=== PATIENT | male | born 1960 | race Caucasian/White ===

== ENCOUNTER → 2016-05-16 | Outpatient (REF) | payer OTHER ==
[~2016-05-16] MED LIST: ACET50TA PO; AMAR1TAB PO; AMLO5TAB2 PO; AUGM875T27 PO; BISAC5TA PO; CEFT2INJ IV; CHLO50TA2 PO; CINN500C9 PO; DIOV320T PO; HEPA100SYR IV; INSULANT SQ; LEVO500T PO; METF1000 PO; SIMV40TA2 PO; SLF IV; SULF400T PO
== END ==
LOC: M LAB REF 10:47
PROVIDERS: ATTEND Surgery
DX: E11.621 Type 2 diabetes mellitus with foot ulcer (principal)

== ENCOUNTER 2016-05-24 14:55 | Inpatient (IN) | payer OTHER ==
[~2016-05-24] VITALS: Ht 177.8 cm; Wt 102.9 kg
[~2016-05-24 14:55] MED LIST changes: -ASPI1TAB PO; -ATOR40TA PO; -CHLO25TA PO; -CINN500T PO; -CLEO300C2 PO; -GLIM1TAB; -GLIM1TAB PO; -TRAD5TAB; -TRAD5TAB PO; -VALS1TAB47; -VALS1TAB47 PO; -VITATAB11 PO
[2016-05-24] MEDS ORDERED: VALS1TAB47 (15:10)
[2016-05-24] MEDS ORDERED: CHLO25TA PO (15:10)
[2016-05-24] MEDS ORDERED: GLIM1TAB (15:10)
[2016-05-24] MEDS ORDERED: ATOR40TA PO (15:10)
[2016-05-24] MEDS ORDERED: CINN500T PO (15:10)
[2016-05-24] MEDS ORDERED: TRAD5TAB (15:10)
[2016-05-24] MEDS ORDERED: ASPI1TAB PO ×2 (15:10→17:53)
[2016-05-24 16:09] LABS: MEAN CORPUSCULAR HEMOGLOBIN 30.1 pg (27.0-33.0); MEAN CORPUSCULAR VOLUME 91.2 fl (80.0-96.0); RED CELL DISTRIBUTION WIDTH 13.2 % (11.5-14.5); WHITE BLOOD COUNT 8.9 K/mm3 (4.0-10.0)
[2016-05-24] MEDS: NS 1,000 ML IV SCH ×3 (16:20→22:21)
[2016-05-24 16:35] LABS: ALBUMIN 3.2 GM/DL (3.2-5.2); ALBUMIN/GLOBULIN RATIO 0.67 (1.00-1.93); ALKALINE PHOSPHATASE 97 U/L (45-117); ALT/SGPT 32 U/L (12-78); ANION GAP 6 MEQ/L (8-16); AST/SGOT 19 U/L (15-37); BILIRUBIN,DIRECT 0.2 MG/DL (0.0-0.2); BILIRUBIN,TOTAL 0.4 MG/DL (0.2-1.0); BLOOD UREA NITROGEN 49 MG/DL (7-18); CARBON DIOXIDE LEVEL 24 MEQ/L (21-32); CHLORIDE LEVEL 107 MEQ/L (98-107); CREATININE FOR GFR 3.07 MG/DL (0.70-1.30); GLOMERULAR FILTRATION RATE 22.6 (>56); GLUCOSE, FASTING 145 MG/DL (70-105); SODIUM LEVEL 137 MEQ/L (136-145)
[2016-05-24 16:37] LABS: POTASSIUM SERUM 5.8 MEQ/L (3.5-5.1)
[2016-05-24 16:38] LABS: BASOPHILS 1 % (0-4); EOSINOPHILS 9 % (0-5)
--- NOTE | 2016-05-24 16:47 | REP ---
PORTABLE CHEST: AP portable view of the chest is performed. COMPARISON: 05/02/2012 Heart is upper limits of normal in size. There is mild elevation of the right hemidiaphragm unchanged. There is mild linear fibro atelectatic change in each lung base with no evidence of acute infiltrate or pulmonary edema. The mediastinal silhouette is unchanged. IMPRESSION: No acute infiltrate. Signed by Moses Leiva MD 05/25/2016 08:34 A
[2016-05-24] MEDS ORDERED: CALCIUM GLUCONATE 1,000 MG in D5W MINI-BAG PLUS 100 ML IV ONE ×4 (17:15)
[2016-05-24] MEDS ORDERED: SOD POLYSTYRENE SULFONATE SUSP 15 GM/60 ML UD PO ONE ×2 (17:15)
[2016-05-24] MEDS ORDERED: SODIUM CHLORIDE 0.9% 1000 ML IV SCH (17:15)
[2016-05-24] MEDS ORDERED: DEXTROSE 50% 50 ML SYRINGE IV PRN (17:30)
[2016-05-24] MEDS ORDERED: GLUCOSE 4 GM CHEW TABLET PO PRN (17:30)
[2016-05-24] MEDS ORDERED: GLUCAGON FOR INJ 1 MG VIAL (J1610) SC PRN (17:30)
--- NOTE | 2016-05-24 17:45 | REP ---
Left foot series: Four views. History: Status post amputation. Comparison: Left foot radiographs are from May 28, 2012. The fifth toe has been amputated in the interval since that prior study through the distal end of the fifth metatarsal. Findings: There is new bony erosion in the proximal phalanx of the fourth toe consistent with osteomyelitis. There is soft tissue swelling of the fourth toe and there is subluxation of the PIP joint of the fourth toe. No soft tissue gas is seen. There is Achilles and plantar calcaneal spurring. Vascular calcification is again noted. Impression: Acute appearing erosive change and subluxation and swelling in the fourth toe proximal phalanx consistent with osteomyelitis. Status post amputation of the fifth digit. Signed by Shaun Carr MD 05/24/2016 06:07 P
[2016-05-24] MEDS ORDERED: TRAD5TAB PO (17:53)
[2016-05-24] MEDS ORDERED: VITATAB11 PO (17:53)
[2016-05-24] MEDS ORDERED: VALS1TAB47 PO (17:53)
[2016-05-24] MEDS ORDERED: GLIM1TAB PO (17:53)
--- NOTE | 2016-05-24 18:31 | HPEPDOC ---
General Date of Admission May 24, 2016 at 17:15 Primary Care Physician: Abelardo Carrington MD Other Providers Dr. Andre Chavez M.D.-wound care Dr. Heather Brewer M.D.-infectious disease Attending Physician: JELANI KANG MD Chief Complaint The patient is a 55-year-old male admitted with a reason for visit of Acute Hyperkalemia. Source: Patient, Family Exam Limitations: No limitations History of Present Illness Mr. Phillips presented to the emergency department because he was called by his primary care physician Dr. Carrington and informed of his abnormal lab results indicating that he had acute on chronic kidney injury and hyperkalemia secondary to the use of Bactrim. He has taken Bactrim multiple times in the past without any issue, however he was recently started on Bactrim once again due to osteomyelitis of his left fourth toe. Otherwise, he does not have any additional symptoms today, he does not have any pain in his foot, nor has he had any extending cellulitis, and he specifically denies any genitourinary symptoms such as changes in frequency or color. Specifically also denies any chest or cardiac symptoms such as palpitations, skipped beats, or any other chest discomfort. Home Medications Scheduled Aspirin (Aspirin 81) 81 Mg Tab 81 MG PO QHS (Reported) Atorvastatin Calcium (Atorvastatin Calcium) 40 Mg Tab 40 MG PO QHS (Reported) B1/B2/B3/B5/B6 (Vitamin B Complex) 1 Tab Tab 1 TAB PO DAILY (Reported) Chlorthalidone (Chlorthalidone) 25 Mg Tab 25 MG PO DAILY (Reported) Cinnamon Bark (Cinnamon) 500 Mg Tab 500 MG PO BID (Reported) Glimepiride (Glimepiride) 1 Mg Tab 1 MG PO BID (Reported) Linagliptin Base (Tradjenta) 5 Mg Tab 5 MG PO DAILY (Reported) Valsartan (Valsartan) 160 Mg Tab 160 MG PO QHS (Reported) Allergies Coded Allergies: No Known Drug Allergy (Verified Allergy, Unknown, 05/28/12) Past Medical History Medical History Diabetes mellitus type 2 Chronic kidney disease stage III with a baseline of approximately 2-2.3 Hypercholesterolemia Hypertension History of retinal hemorrhages Fatty liver Diabetic neuropathy Osteomyelitis of left fifth toe with subsequent amputation in 2012 Osteomyelitis of the left fourth toe, current Surgical History Multiple eye surgeries and injections for his retinal hemorrhages Amputation of left fifth toe and metatarsal 2013 Family History Father has Alzheimer's dementia, and he has multiple aunts and uncles with diabetes Social History * Smoker: Denies Alcohol: Denies Drugs: denies Recent Travel/Sick Contacts: Denies: Recent sick contacts, Recent travel Psychosocial History: No pertinent psych hx Review of Symptoms Constitutional: Denies: Chills, Fever, Night Sweats Eyes: Denies: Pain, Vision change ENT: Denies: Dysphagia, Ear Pain, Head Aches Skin: Denies: Breakdown, Lesions, Rash Pulmonary: Denies: Cough, Dyspnea Cardiovascular: Denies: Chest Pain, Lt Headedness, Orthopnea, Palpitations, Paroxysmal Noc. Dyspnea Gastrointestinal: Denies: Abdominal Pain, Diarrhea, Nausea, Vomiting Genitourinary: Denies: Dysuria, Frequency, Incontinence, Retention Hematologic: Denies: Bleeding Excessively, Bruising Musculoskeletal: Denies: Back Pain, Joint Pain, Muscle Pain, Neck Pain, Spasms Neurological: Denies: Change in speech, Confusion, Numbness, Weakness Psych: Reports: Mood Normal, Denies: Depression, Memory Issues Physical Examination General Exam: Positive: Alert, No Acute Distress Eye Exam: Positive: Conjunctiva & lids normal, EOMI, PERRLA, Negative: Sclera icteric ENT Exam: Positive: Atraumatic, Mucous membr. moist/pink, Pharynx Normal Neck Exam: Positive: Supple, Negative: JVD, thyromegaly Chest Exam: Positive: Clear to auscultation, Normal air movement Heart Exam: Positive: Normal S1, Normal S2, Rate Normal, Regular Rhythm, Negative: Murmurs, Rubs Telemetry: Positive: No significant arrhythmia, Other Telemetry: (specifically , no evidence of peaked T waves), Sinus Abdomen Exam: Positive: Normal bowel sounds, Soft, Negative: Hepatospenomegaly, Tenderness Extremity Exam: Positive: Normal pulses, Other (previous left fifth toe amputation, left fourth toe wound recently debrided), Negative: Clubbing, Cyanosis, Edema Skin Exam: Positive: Nl turgor and temperature, Negative: Breakdown, Lesion Neuro Exam: Positive: Cranial Nerves 3-12 NL Psych Exam: Positive: Mental status NL, Mood NL, Oriented x 3 Vital Signs Temperature 98.9, pulse 78, respiratory rate 16, blood pressure 117/72, pulse oximetry 96% on room air Laboratory Data Labs 24H Laboratory Tests 2 05/24/16 15:51: Basophils (Manual) 1, Eosinophils (Manual) 9H, Lymphocytes (Manual) 21, Monocytes (Manual) 6, Neutrophils 63, Platelet Estimate NORMAL, Red Blood Cell Morphology NORMAL 05/24/16 15:52: Aspartate Amino Transf (AST/SGOT) 19, Alanine Aminotransferase (ALT/SGPT) 32, Alkaline Phosphatase 97, Total Bilirubin 0.4, Direct Bilirubin 0.2, Albumin 3.2 , Albumin/Globulin Ratio 0.67L, Anion Gap 6L, Calcium Level 9.0, Creatine Kinase MB 2.7, Creatine Kinase MB Relative Index 1.21, Glomerular Filtration Rate 22.6L, Total Creatine Kinase 222, Total Protein 8.0, Troponin I < 0.02 CBC/BMP Laboratory Tests 05/24/16 15:51 05/24/16 15:52 Problems (1) Acute hyperkalemia Status: Acute (2) Renal failure (ARF), acute on chronic Status: Acute (3) Osteomyelitis of toe of left foot Status: Acute (4) Diabetes mellitus type 2 in obese Status: Chronic (5) Hypercholesterolemia Status: Chronic (6) Hypertension Status: Chronic (7) History of retinal hemorrhage Status: Chronic (8) Fatty liver Status: Chronic (9) CKD (chronic kidney disease), stage III Status: Chronic Plan / VTE VTE Prophylaxis Ordered?: Yes (Heparin) Plan Plan Will admit the patient to PCU for an telemetric monitoring given his hyperkalemia, and he will be under the care of Dr. Carrington starting in the morning. He is already been administered calcium gluconate to stabilize the cardiac membrane as well as Kayexalate and to encourage excretion of potassium. Bactrim has obviously been discontinued, we will put him on clindamycin for now, as his wound cultures show that he is resistant to penicillins. Consideration may be given to narrow him down to the use of oxacillin (as this is sensitive), however for long-term use he would need the placement of a PICC line. Otherwise, we'll start him with hydration using normal saline, control his diabetes using sliding scale insulin, and continue his home medications of aspirin, vitamins, and Lipitor. As for his antihypertensives, both chlorthalidone and valsartan are nephrotoxic, therefore these will be discontinued, and he has a sensitivity to beta blockers listed in [employer] , therefore we will give him some Norvasc to help control his blood pressure while inpatient. YEVGENIY ROBERSON DO May 24, 2016 18:31 JELANI KANG MD May 24, 2016 18:46
--- NOTE | 2016-05-24 18:38 | REP ---
Urinary tract sonography: History: Acute renal failure. Findings: Scanning through the level of the urinary bladder shows smooth bladder gudino. Emptying ureteral jets are observed from the right ureter on color Doppler interrogation of the bladder lumen. Renal cortical echogenicity pattern is slightly increased. Renal contours are intact. There is some increased renal sinus fat echogenicity seen bilaterally. No hydronephrosis is seen. No cyst or mass is observed on either side. The left renal dimensions are 11.0 x 6.4 x 4.4 cm. Right renal dimensions are 11.2 x 6.1 x 5.7 centimeters. Impression: Increased renal cortical echogenicity pattern compatible with chronic medical renal disease. No hydronephrosis, cyst, or mass is observed. Signed by Shaun Carr MD 05/24/2016 07:14 P
[2016-05-24] MEDS: HumaLOG INSULIN (NovoLOG) PER UNIT SC SCH ×2 (18:40→21:00)
[2016-05-24] MEDS: CLINDAMYCIN 600 MG in APPROPRIATE DILUENT 1 EA IV SCH (18:45)
[2016-05-24 20:40] VITALS: BP 146/74
[2016-05-24] MEDS ORDERED: HEPARIN SOD (PORCINE) 5000 UNITS/ML VIAL SC SCH (21:00)
[2016-05-24] MEDS: HEPARIN SOD (PORCINE) 5000 UNITS/ML VIAL SQ SCH (22:17)
[2016-05-24] MEDS: ATORVASTATIN 20 MG TAB PO SCH (22:17)
[2016-05-24] MEDS: ASPIRIN 81 MG ENTERIC TAB PO SCH (22:17)
[2016-05-25] VITALS (8 sets, daily range): BP systolic 124–146; BP diastolic 54–74
[2016-05-25 00:44] LABS: CALCIUM LEVEL 8.9 MG/DL (8.5-10.1); CREATININE FOR GFR 2.99 MG/DL (0.70-1.30); GLOMERULAR FILTRATION RATE 23.3 (>56)
[2016-05-25 00:47] LABS: POTASSIUM SERUM 5.6 MEQ/L (3.5-5.1)
[2016-05-25] MEDS: CLINDAMYCIN 600 MG in APPROPRIATE DILUENT 1 EA IV SCH ×3 (02:57→17:11)
[2016-05-25] MEDS: NS 1,000 ML IV SCH ×4 (02:58→22:09)
[2016-05-25] MEDS: HEPARIN SOD (PORCINE) 5000 UNITS/ML VIAL SQ SCH ×3 (05:39→22:09)
[2016-05-25 06:07] LABS: ALBUMIN 2.8 GM/DL (3.2-5.2); CALCIUM LEVEL 8.6 MG/DL (8.5-10.1); CREATININE FOR GFR 2.71 MG/DL (0.70-1.30); GLOMERULAR FILTRATION RATE 26.1 (>56); PHOSPHORUS LEVEL 3.8 MG/DL (2.5-4.9)
[2016-05-25 06:13] LABS: POTASSIUM SERUM 5.5 MEQ/L (3.5-5.1)
[2016-05-25 06:27] LABS: BASO % 0.5 % (0.0-1.0); EOS # 0.6 K/mm3 (0.0-0.50); EOS % 8.4 % (0.0-3.0); LARGE UNSTAINED CELL # 0.2 K/mm3 (0.0-0.4); LARGE UNSTAINED CELL % 3.1 % (0.0-4.0); LYMPH # 1.9 K/mm3 (1.5-4.5); LYMPH % 23.2 % (24.0-44.0); MEAN CORPUSCULAR HEMOGLOBIN 29.4 pg (27.0-33.0); MEAN CORPUSCULAR HGB CONC 31.9 g/dl (32.0-36.5); MEAN CORPUSCULAR VOLUME 92.4 fl (80.0-96.0); MONO # 0.5 K/mm3 (0.0-0.8); NEUTROPHILS # 4.2 K/mm3 (1.8-7.7); NEUTROPHILS % 57.8 % (36.0-66.0); PLATELET COUNT, AUTOMATED 275 k/mm3 (150-450); RED CELL DISTRIBUTION WIDTH 13.3 % (11.5-14.5); WHITE BLOOD COUNT 7.2 K/mm3 (4.0-10.0)
[2016-05-25] MEDS: HumaLOG INSULIN (NovoLOG) PER UNIT SC SCH ×4 (07:42→21:00)
[2016-05-25] MEDS: LACTOBACILLUS ACIDOPHILUS CAP (BACID) PO SCH ×2 (08:59→17:11)
[2016-05-25] MEDS: VITAMIN B COMPLEX/VIT C CAP PO SCH (08:59)
[2016-05-25] MEDS: amLODIPine 5 MG TAB PO SCH (08:59)
--- NOTE | 2016-05-25 10:05 | IPNPDOC ---
Subjective Date Seen The patient was seen on 05/25/16. Subjective Chief Complaint/HPI The patient is a 55-year-old male admitted with a reason for visit of Acute Hyperkalemia. Events since last encounter No new issues or concerns. Feels well Constitutional: Denies: Chills, Fever Pulmonary: Denies: Cough, Dyspnea Cardiovascular: Denies: Chest Pain, Orthopnea, Palpitations Gastrointestinal: Denies: Abdominal Pain, Constipation, Diarrhea, Nausea, Vomiting Objective Physical Examination General Exam: Positive: Alert, No Acute Distress Eye Exam: Positive: Conjunctiva & lids normal, EOMI, PERRLA, Negative: Sclera icteric ENT Exam: Positive: Atraumatic, Mucous membr. moist/pink, Pharynx Normal Neck Exam: Positive: Supple, Negative: JVD, thyromegaly Chest Exam: Positive: Clear to auscultation, Normal air movement Heart Exam: Positive: Normal S1, Normal S2, Rate Normal, Regular Rhythm, Negative: Murmurs, Rubs Telemetry: Positive: No significant arrhythmia, Other Telemetry: (specifically , no evidence of peaked T waves), Sinus Abdomen Exam: Positive: Normal bowel sounds, Soft, Negative: Hepatospenomegaly, Tenderness Extremity Exam: Positive: Normal pulses, Other (previous left fifth toe amputation, left fourth toe wound recently debrided), Negative: Clubbing, Cyanosis, Edema Skin Exam: Positive: Nl turgor and temperature, Negative: Breakdown, Lesion Neuro Exam: Positive: Cranial Nerves 3-12 NL Psych Exam: Positive: Mental status NL, Mood NL, Oriented x 3 Assessment /Plan Problems (1) Acute hyperkalemia Status: Acute Response to Treatment: Improving Problem Text: 05/25/16 - K+ improved but still elevated at 5.5 Expect improvement with improved renal function. Give additional Kayexalate this am (2) Renal failure (ARF), acute on chronic Status: Acute Response to Treatment: Improving Problem Text: 05/25/16 - Renal function improving with IVF and d/c of Bactrim Follows with Nephrology as outpatient - consult them today (Dr. Agrawal consulted) (3) Osteomyelitis of toe of left foot Status: Acute Problem Text: Bactrim d/c'd due to TALYA. Now on clindamycin Followed by Dr. Chavez as outpatient. I will consult him (4) Diabetes mellitus type 2 in obese Status: Chronic Response to Treatment: Stable (5) Hypercholesterolemia Status: Chronic Response to Treatment: Stable (6) Hypertension Status: Chronic Response to Treatment: Stable Problem Text: Stable (7) History of retinal hemorrhage Status: Chronic (8) Fatty liver Status: Chronic (9) CKD (chronic kidney disease), stage III Status: Chronic Plan/VTE VTE Prophylaxis Ordered?: Yes (Heparin) Disposition change to full admission status VS, I&O, 24H, Fishbone Vital Signs/I&O Vital Signs Date Time Temp Pulse Resp B/P Pulse Ox O2 Delivery O2 Flow Rate FiO2 05/25/16 08:59 69 134/71 05/25/16 08:00 98.4 18 98 Room Air I&O- Last 24 Hours up to 6 AM 05/25/16 06:00 Intake Total 1760 ml Output Total 1475 ml Balance 285 ml Laboratory Data 24H LABS Laboratory Tests 2 05/24/16 15:51: Basophils (Manual) 1, Eosinophils (Manual) 9H, Lymphocytes (Manual) 21, Monocytes (Manual) 6, Neutrophils 63, Platelet Estimate NORMAL, Red Blood Cell Morphology NORMAL 05/24/16 15:52: Aspartate Amino Transf (AST/SGOT) 19, Alanine Aminotransferase (ALT/SGPT) 32, Alkaline Phosphatase 97, Total Bilirubin 0.4, Direct Bilirubin 0.2, Albumin 3.2 , Albumin/Globulin Ratio 0.67L, Anion Gap 6L, Calcium Level 9.0, Creatine Kinase MB 2.7, Creatine Kinase MB Relative Index 1.21, Glomerular Filtration Rate 22.6L, Total Creatine Kinase 222, Total Protein 8.0, Troponin I < 0.02 05/24/16 18:22: Bedside Glucose (Misc Panel) 131H 05/24/16 22:16: Bedside Glucose (Misc Panel) 104 05/25/16 00:09: Anion Gap 6L, Blood Urea Nitrogen 49H, Creatinine 2.99H, Sodium Level 141, Potassium Level 5.6H, Chloride Level 112H, Carbon Dioxide Level 23, Calcium Level 8.9, Glomerular Filtration Rate 23.3L 05/25/16 05:33: Anion Gap 8, Blood Urea Nitrogen 43H, Creatinine 2.71H, Sodium Level 142, Potassium Level 5.5H, Chloride Level 113H, Carbon Dioxide Level 21, Calcium Level 8.6, Glomerular Filtration Rate 26.1L, Albumin 2.8L, White Blood Count 7.2 , Red Blood Count 3.40L, Hemoglobin 10.0L, Hematocrit 31.4L, Mean Corpuscular Volume 92.4, Mean Corpuscular Hemoglobin 29.4, Mean Corpuscular Hemoglobin Concent 31.9L, Red Cell Distribution Width 13.3, Platelet Count 275, Neutrophils (%) (Auto) 57.8, Lymphocytes (%) (Auto) 23.2L, Monocytes (%) (Auto) 7.0H, Eosinophils (%) (Auto) 8.4H, Basophils (%) (Auto) 0.5, Neutrophils # (Auto ) 4.2, Lymphocytes # (Auto) 1.9, Monocytes # (Auto) 0.5, Eosinophils # (Auto) 0.6H, Basophils # (Auto) 0.0, Large Unclassified Cells # 0.2, Large Unclassified Cells % 3.1, Phosphorus Level 3.8 CBC/BMP Laboratory Tests 05/24/16 15:51 05/24/16 15:52 05/25/16 00:09 Calcium Level 8.9 05/25/16 05:33 Anion Gap 8, Red Blood Count 3.40 L, Mean Corpuscular Volume 92.4, Mean Corpuscular Hemoglobin 29.4, Mean Corpuscular Hemoglobin Concent 31.9 L, Red Cell Distribution Width 13.3, Neutrophils (%) (Auto) 57.8, Lymphocytes (%) (Auto ) 23.2 L, Monocytes (%) (Auto) 7.0 H, Eosinophils (%) (Auto) 8.4 H, Basophils (% ) (Auto) 0.5, Neutrophils # (Auto) 4.2, Lymphocytes # (Auto) 1.9, Monocytes # ( Auto) 0.5, Eosinophils # (Auto) 0.6 H, Basophils # (Auto) 0.0 JAYDEN TORRES PA-C May 25, 2016 10:04
[2016-05-25] MEDS ORDERED: SOD POLYSTYRENE SULFONATE SUSP 15 GM/60 ML UD PO ONE (11:00)
[2016-05-25] MEDS: DIAPER RELIEF OINT (DESITIN) 60GM TOP SCH (15:37)
--- NOTE | 2016-05-25 21:38 | ECGEPIP ---
Stationary ECG Study [facility] - ED Test Date: 2016-05-24 Pat Name: AYALA SOLIS Department: Room: - Gender: M Sinter Feeder: JT : 1960 Requested By: HARIS JOYCE Order Number: [id number] Reading MD: Natali Romo Measurements Intervals [place] Rate: 83 P: 22 MD: 143 QRS: 5 QRSD: 121 T: 33 QT: 343 QTc: 403 Interpretive Statements SINUS RHYTHM MODERATE INTRAVENTRICULAR CONDUCTION DELAY SIMILAR 05/02/12 Electronically Signed On 05-25-2016 21:38:04 EDT by Natali Romo
[2016-05-25] MEDS: ATORVASTATIN 20 MG TAB PO SCH (22:09)
[2016-05-25] MEDS: ASPIRIN 81 MG ENTERIC TAB PO SCH (22:09)
[2016-05-26] MEDS: CLINDAMYCIN 600 MG in APPROPRIATE DILUENT 1 EA IV SCH ×2 (02:36→09:26)
[2016-05-26 05:18] VITALS: BP 133/75
[2016-05-26 05:54] LABS: BASO % 0.6 % (0.0-1.0); EOS # 0.5 K/mm3 (0.0-0.50); EOS % 9.4 % (0.0-3.0); LARGE UNSTAINED CELL # 0.2 K/mm3 (0.0-0.4); LARGE UNSTAINED CELL % 2.9 % (0.0-4.0); LYMPH # 1.5 K/mm3 (1.5-4.5); LYMPH % 23.5 % (24.0-44.0); MEAN CORPUSCULAR HEMOGLOBIN 29.6 pg (27.0-33.0); MEAN CORPUSCULAR HGB CONC 32.2 g/dl (32.0-36.5); MEAN CORPUSCULAR VOLUME 91.8 fl (80.0-96.0); MONO # 0.4 K/mm3 (0.0-0.8); MONO % 6.6 % (0.0-5.0); NEUTROPHILS # 3.2 K/mm3 (1.8-7.7); PLATELET COUNT, AUTOMATED 260 k/mm3 (150-450); WHITE BLOOD COUNT 5.6 K/mm3 (4.0-10.0)
[2016-05-26] MEDS: HEPARIN SOD (PORCINE) 5000 UNITS/ML VIAL SQ SCH (06:10)
[2016-05-26 06:11] LABS: ALBUMIN 2.8 GM/DL (3.2-5.2); CALCIUM LEVEL 8.1 MG/DL (8.5-10.1); CREATININE FOR GFR 2.18 MG/DL (0.70-1.30); GLOMERULAR FILTRATION RATE 33.6 (>56); PHOSPHORUS LEVEL 4.1 MG/DL (2.5-4.9)
[2016-05-26 06:14] LABS: PERCENT SATURATION 29.5 % (19.7-37.4)
[2016-05-26 06:16] LABS: POTASSIUM SERUM 5.4 MEQ/L (3.5-5.1)
--- NOTE | 2016-05-26 07:55 | CR ---
DATE OF CONSULTATION: 05/25/2016 REQUESTING PHYSICIAN: Dr. Abelardo Carrington CONSULTING PHYSICIAN: Dr. Agrawal REASON FOR CONSULTATION: Management of acute kidney injury and hyperkalemia. CHIEF COMPLAINT: The patient was sent from the primary care physician (PCP) office because of abnormal labs. HISTORY OF PRESENT ILLNESS: Mr. Son Phillips is a 55-year-old male with past medical history of diabetes mellitus type 2, hypertension, chronic kidney disease Stage III with a baseline creatinine of 2.3 as of November 2015. He was recently found to have infection and osteomyelitis of his left fourth toe. He was started on Bactrim for the infection. He took it for 10 days. The patient is also on high dose valsartan. Recently labs were done at the PCP's office and he was found to have an elevated creatinine and potassium so he was sent to the emergency room for further evaluation and management. On arrival in the emergency room (ER), he was found to have a potassium of 5.8 and a creatinine of 3.07. Nephrology service was called for further management of acute kidney injury superimposed on chronic kidney disease and hyperkalemia. The patient was already started on IV fluids yesterday. His antibiotic has been changed to clindamycin and the patient was given a dose of Kayexalate 30 grams by mouth. The patient reports that he has had a big bowel movement this morning. PAST MEDICAL HISTORY: 1. Diabetes mellitus type 2. 2. Chronic kidney disease Stage III with a baseline creatinine of 2.3. 3. Hypertension. 4. Hyperlipidemia. 5. Diabetic neuropathy. 6. Osteomyelitis of the left fifth toe with amputation in 2012 and recent osteomyelitis of the left fourth toe. PAST SURGICAL HISTORY: 1. Multiple eye surgeries and injections in the past because of diabetic retinopathy and retinal hemorrhages. 2. Status post amputation of the left fifth toe and metatarsal bone in 2012. ALLERGIES: No known drug allergies. HOME MEDICATIONS: - Bactrim - aspirin 81 mg daily - atorvastatin 40 mg at bedtime - vitamin B complex - chlorthalidone 25 mg by mouth daily - cinnamon - glimepiride 1 tablet by mouth twice a day - Tradjenta 5 mg by mouth daily - valsartan 160 mg by mouth at bedtime CURRENT INPATIENT MEDICATIONS: - clindamycin 600 mg IV every 8 hours, 100 mL/hr - amlodipine 5 mg by mouth daily - aspirin 81 mg by mouth at bedtime - atorvastatin 40 mg at bedtime - heparin subcutaneous every 8 hours - insulin sliding scale - Kayexalate 30 grams by mouth times one dose was ordered - vitamin B complex FAMILY HISTORY: No significant family history of end stage renal disease requiring hemodialysis. Positive family history of diabetes in the family. SOCIAL HISTORY: The patient lives at home. He denies smoking, drug abuse or alcohol abuse. REVIEW OF SYSTEMS: CONSTITUTIONAL: Patient denies any fever, chills or rigors. EYES: Patient reports history of retinal hemorrhages in the past, but denies any recent vision change. ENT: He denies any dysphagia, odynophagia, ear pain or ear discharge. CARDIOVASCULAR: He denies any chest pain or palpitations. RESPIRATORY: He denies any cough, wheezing or dyspnea. GASTROINTESTINAL: He denies any abdominal pain, diarrhea, nausea or vomiting. GENITOURINARY: He denies any dysuria or hematuria. HEMATOLOGICAL/ONCOLOGICAL: He denies any easy bruising, bleeding or anemia. MUSCULOSKELETAL: He denies any muscle aches and pains, but reports left foot fourth toe osteomyelitis. SKIN: He denies any rashes. CENTRAL NERVOUS SYSTEM: He denies any weakness, numbness or seizure disorder. PSYCHIATRIC: He denies any history of depression or anxiety. ENDOCRINE: Reports history of diabetes. All other review of systems is negative. PHYSICAL EXAMINATION: GENERAL: Patient is awake, alert and oriented times three sitting in the bed in no apparent distress. VITAL SIGNS: Temperature 98.4 degrees Fahrenheit. Blood pressure 134/71. Pulse 69. Respiratory rate 18. Saturating 98% on room air. INTAKE AND OUTPUT: Urine output recorded as 875 mL yesterday and 2.7 liters so far today since overnight. Weight on the bed scale is 101.9 kg. HEAD AND NECK EXAM: Extraocular muscles intact. Pupils equally round and reactive to light. Neck is supple. There is no jugular venous distention (JVD). CARDIOVASCULAR: S1, S2, regular rate. No murmur, rub or gallop. RESPIRATORY: Chest is clear to auscultation bilaterally. Bilateral equal air entry. No rales or rhonchi. ABDOMEN: Soft. Positive bowel sounds. Nontender. No ascites. No organomegaly. EXTREMITIES: No clubbing or cyanosis. Patient has a dressing on the left foot. No edema of the extremities. CENTRAL NERVOUS SYSTEM: No focal neurological deficit. Power is 5/5 in all extremities. SKIN: No rashes or ulcers apart from left foot osteomyelitis. PSYCHIATRIC: Normal mood and affect. LAB REVIEW: CBC showed a WBC of 7.2, hemoglobin 10 and platelets are 275. BMP showed sodium 142, potassium 5.5, chloride 113, bicarbonate 21, BUN 43, creatinine 2.7 which is improving - it was 3.07 yesterday. Calcium 8.6. Phosphorus is 3.8. Albumin is 2.8. MICROBIOLOGY: No cultures are available. IMAGING: A renal ultrasound done yesterday showed increased renal cortical echogenicity compatible with medical renal disease. Otherwise no acute pathology. X-ray of the foot done yesterday showed acute appearing erosive change, subluxation and swelling in the fourth toe proximal phalanx consistent with osteomyelitis. ASSESSMENT: 55-year-old male with past medical history of diabetes, hypertension, chronic kidney disease Stage III with a baseline creatinine of 2.3 admitted at this time because of acute kidney injury and hyperkalemia. PLAN: 1. Acute kidney injury. It is most likely secondary to combination of use of Bactrim and high dose valsartan. Bactrim has already been stopped. The patient has been started on IV fluid hydration. Encourage oral hydration. I am going to stop the IV fluids at this time because patient's volume status is well optimized. Renal function is expected to improve over the next one to two days. 2. Hyperkalemia. Hyperkalemia is secondary to acute kidney injury and use of valsartan. The patient should get low potassium diet. He already got a dose of Kayexalate this morning. Potassium level is acceptable for now. No other intervention needed at this time. 3. Hypertension. Patient was on valsartan. It is on hold because of acute kidney injury. He has been started on amlodipine 5 mg by mouth daily. Dose can be increased to 10 mg as needed. 4. Osteomyelitis of the left fourth toe. The patient has been started on clindamycin. The rest of the management is as per primary team or infectious disease (ID) recommendations. 5. Anemia and chronic kidney disease. The patient's hemoglobin is 10, which is acceptable at this time. I am going to check the iron levels, however, I am not going to give IV iron to this patient at this time because of acute infection. Thank you for involving us in the care of this patient. We shall be happy to follow the patient along with you tomorrow morning.
[2016-05-26 08:00] VITALS: BP 136/78
[2016-05-26] MEDS ORDERED: SOD POLYSTYRENE SULFONATE SUSP 15 GM/60 ML UD PO ONE (09:15)
[2016-05-26 09:19] VITALS: BP 136/78
[2016-05-26] MEDS: VITAMIN B COMPLEX/VIT C CAP PO SCH (09:19)
[2016-05-26] MEDS: HumaLOG INSULIN (NovoLOG) PER UNIT SC SCH (09:19)
[2016-05-26] MEDS: LACTOBACILLUS ACIDOPHILUS CAP (BACID) PO SCH (09:19)
[2016-05-26] MEDS: amLODIPine 5 MG TAB PO SCH (09:19)
[2016-05-26] MEDS: DIAPER RELIEF OINT (DESITIN) 60GM TOP SCH (09:37)
[2016-05-26] MEDS ORDERED: CLEO300C2 PO (10:06)
[2016-05-26] MEDS ORDERED: AMLO5TAB2 PO (10:10)
--- NOTE | 2016-05-26 11:03 | DSES ---
DATE OF ADMISSION: 05/25/2016 DATE OF DISCHARGE: 05/26/16 PRIMARY CARE PROVIDER: Abelardo Carrington MD ATTENDING PHYSICIAN: Abelardo Carrington MD HISTORY: This is a 55-year-old male patient who has a history of chronic kidney disease, left foot wound, diabetes. Foot wound managed by Dr. Chavez. He was placed on Bactrim. That, in addition to high dose valsartan resulted in acute on chronic kidney injury with hyperkalemia. He has been seen by nephrology. He had a renal ultrasound without any acute findings. His renal function has improved. His renal function was 3.07 on 05/24/2016, 2.18 this morning, which is close to his baseline. His potassium level has gone from 5.8 to 5.4 this morning. He is clinically asymptomatic. He has no concerns today. He is eager to return home. He had Kayexalate two doses, 30 mg, followed by 15 mg on 05/25 and 05/26/2016. His antibiotic for his left foot wound has been changed from Bactrim to clindamycin IV. I have spoken with Dr. Chavez who feels as though transitioning this to oral clindamycin is appropriate. DISCHARGE DIAGNOSES: Include: 1. Acute kidney injury on chronic kidney disease. 2. Hyperkalemia. 3. Hypertension. 4. Osteomyelitis of the left fourth toe. 5. Anemia of chronic disease. DISCHARGE MEDICATIONS: Include: - clindamycin 300 mg by mouth three times a day - aspirin 81 mg daily - atorvastatin 40 mg daily - B complex one tablet daily - chlorthalidone 25 mg by mouth daily - cinnamon 500 mg by mouth twice a day - glimepiride 1 mg by mouth twice a day - Tradjenta 50 mg daily - amlodipine 5 mg by mouth daily DISCHARGE PLAN: Followup with Dr. Carrington as scheduled on 06/10/2016. He has routine screening laboratories scheduled on 06/03/2016. I will also order a BMP to be performed on 05/29/2016 to recheck his renal function as well as his potassium. He will followup with Dr. Chavez tomorrow, 05/27/2016, at 1:30 p.m. as previously scheduled. His diet should be no added salt, consistent carbohydrate. His activity should be as tolerated. [facility]
--- NOTE | 2016-05-26 12:36 | IPN ---
DATE: 05/26/2016 SUBJECTIVE: Patient was seen and examined at the bedside today in the morning. He denies any active complaints. His renal function continues to improve; however, he still has mild hyperkalemia at this time. REVIEW OF SYSTEMS: The patient denies any fever, chills, rigors, headache, nausea, vomiting, chest pain, shortness of breath, pain in abdomen, constipation, or diarrhea. The rest of the review of systems is negative. OBJECTIVE: VITAL SIGNS: Temperature 98.2 degrees Fahrenheit. Blood pressure 136/78. Pulse is 67. Respiratory rate 18. Saturating 97% on room air. INTAKE AND OUTPUT: Urine output recorded as 3.5 liters yesterday and 675 mL so far today since overnight. Weight on the bed scale is 102.9 kg. PHYSICAL EXAM: GENERAL: The patient is awake, alert, oriented times three, laying in bed in no apparent distress. HEAD AND NECK EXAM: Extraocular muscles intact. Pupils equally round and reactive to light. Mucous membranes are moist. Neck is supple. There is no jugular venous distention. CARDIOVASCULAR: S1, S2. Regular rate. No murmur, rub or gallop. RESPIRATORY: Chest is clear to auscultation bilaterally. Bilateral equal air entry. No rales or rhonchi. ABDOMEN: Soft. Positive bowel sounds. Nontender. No ascites. No organomegaly. EXTREMITIES: No clubbing or cyanosis. Pulses are 2+. Patient has a dressing on the left foot. CENTRAL NERVOUS SYSTEM: No focal neurological deficit. Power is 5/5 in all extremities. LAB REVIEW: CBC showed a WBC of 5.6, hemoglobin 10. BMP showed sodium 142, potassium 5.4, chloride 113, bicarbonate 22, BUN 33, creatinine 2.1 and it was 2.7 yesterday, calcium 8.1. Iron levels are adequate. Albumin is 2.8. CURRENT MEDICATIONS: Patient's medications were all reviewed by me. I have stopped his IV fluids this morning and I gave the patient a dose of Kayexalate 15 grams by mouth times one dose. ASSESSMENT: 55-year-old male with past medical history of diabetes, hypertension, chronic kidney disease stage III with a baseline creatinine of around 2.3 admitted at this time because of acute kidney injury and hyperkalemia. PLAN: 1. Acute kidney injury. Secondary to a combination of use of Bactrim and valsartan. Bactrim and valsartan already on hold. The patient got IV fluids. His renal function has significantly improved close to his baseline. IV fluids have been stopped. 2. Hyperkalemia. The patient is to take a low potassium diet. Potassium is still slightly low. I have ordered another dose of Kayexalate 15 grams by mouth times one dose. Potassium is expected to improve. 3. Hypertension. The patient was on valsartan. He had acute kidney injury (TALYA) and valsartan has been on hold. Blood pressure is being controlled with amlodipine 5 mg by mouth daily and it is acceptable at this time. 4. Osteomyelitis of the left fourth toe. The patient is on IV clindamycin which can be switched to oral clindamycin at this time. 5. Anemia and chronic kidney disease. The patient's iron levels were adequate. His hemoglobin is 10, no need of Aranesp administration at this time. DISCHARGE PLANNING: It is okay to discharge the patient from a nephrology standpoint. He needs to get a repeat BMP within one week of discharge from the hospital to look at his potassium level.
== END 2016-05-26 11:21 | disposition home or self-care (01) | DRG 425 ==
LOC: M ED 16:37 → M ED INP 17:15 → M PCU 20:30 → OBSVTOIN 05-25 10:05
PROVIDERS: ADMIT General Practice; ATTEND Family Medicine
DX: E87.5 Hyperkalemia (principal); E11.40 Type 2 diabetes mellitus with diabetic neuropathy, unspecified; N17.9 Acute kidney failure, unspecified; M86.472 Chronic osteomyelitis with draining sinus, left ankle and foot; N18.3 Chronic kidney disease, stage 3 (moderate); I12.9 Hypertensive chronic kidney disease with stage 1 through stage 4 chronic kidney disease, or unspecified chronic kidney disease; D63.1 Anemia in chronic kidney disease; Z79.899 Other long term (current) drug therapy; Z79.82 Long term (current) use of aspirin; E78.00 Pure hypercholesterolemia, unspecified

== ENCOUNTER → 2016-05-24 | Outpatient (REF) | payer OTHER ==
[~2016-05-24] MED LIST changes: +ASPI1TAB PO; +ATOR40TA PO; +CHLO25TA PO; +CINN500T PO; +CLEO300C2 PO; +GLIM1TAB; +GLIM1TAB PO; +TRAD5TAB; +TRAD5TAB PO; +VALS1TAB47; +VALS1TAB47 PO; +VITATAB11 PO
[2016-05-24 12:50] LABS: CALCIUM LEVEL 8.5 MG/DL (8.5-10.1); CREATININE FOR GFR 3.08 MG/DL (0.70-1.30); GLOMERULAR FILTRATION RATE 22.5 (>56)
[2016-05-24 12:53] LABS: MEAN CORPUSCULAR HEMOGLOBIN 29.8 pg (27.0-33.0); MEAN CORPUSCULAR HGB CONC 32.3 g/dl (32.0-36.5); MEAN CORPUSCULAR VOLUME 92.4 fl (80.0-96.0); RED CELL DISTRIBUTION WIDTH 13.3 % (11.5-14.5); WHITE BLOOD COUNT 7.5 K/mm3 (4.0-10.0)
[2016-05-24 13:01] LABS: POTASSIUM SERUM 6.2 MEQ/L (3.5-5.1)
== END ==
LOC: M LABDRAW1 11:29
PROVIDERS: ATTEND Surgery
DX: E11.621 Type 2 diabetes mellitus with foot ulcer (principal)

== ENCOUNTER → 2016-06-03 | Outpatient (REF) | payer OTHER ==
[~2016-06-03] MED LIST changes: +ASPI1TAB PO; +ATOR40TA PO; +CHLO25TA PO; +CINN500T PO; +CLEO300C2 PO; +GLIM1TAB; +GLIM1TAB PO; +TRAD5TAB; +TRAD5TAB PO; +VALS1TAB47; +VALS1TAB47 PO; +VITATAB11 PO
[2016-06-03 12:23] LABS: ALBUMIN 3.7 GM/DL (3.2-5.2); ALBUMIN/GLOBULIN RATIO 0.84 (1.00-1.93); BILIRUBIN,TOTAL 0.6 MG/DL (0.2-1.0); CALCIUM LEVEL 9.4 MG/DL (8.5-10.1); CREATININE FOR GFR 1.75 MG/DL (0.70-1.30); GLOMERULAR FILTRATION RATE 43.3 (>56); MEAN CORPUSCULAR HEMOGLOBIN 29.1 pg (27.0-33.0); MEAN CORPUSCULAR HGB CONC 32.1 g/dl (32.0-36.5); MEAN CORPUSCULAR VOLUME 90.7 fl (80.0-96.0); POTASSIUM SERUM 4.9 MEQ/L (3.5-5.1); RED CELL DISTRIBUTION WIDTH 13.5 % (11.5-14.5); TOTAL PROTEIN 8.1 GM/DL (6.4-8.2); WHITE BLOOD COUNT 7.5 K/mm3 (4.0-10.0)
== END ==
LOC: M SFHCPLAZ 09:24
PROVIDERS: ATTEND Family Medicine
DX: N18.3 Chronic kidney disease, stage 3 (moderate) (principal); E78.2 Mixed hyperlipidemia; E11.22 Type 2 diabetes mellitus with diabetic chronic kidney disease; N17.9 Acute kidney failure, unspecified

== ENCOUNTER → 2016-06-22 | Outpatient (REF) | payer OTHER ==
[2016-06-22 10:45] LABS: BASO # 0.1 K/mm3 (0.0-0.2); EOS # 0.7 K/mm3 (0.0-0.50); EOS % 9.9 % (0.0-3.0); LARGE UNSTAINED CELL # 0.2 K/mm3 (0.0-0.4); LARGE UNSTAINED CELL % 2.7 % (0.0-4.0); LYMPH # 1.5 K/mm3 (1.5-4.5); LYMPH % 19.4 % (24.0-44.0); MEAN CORPUSCULAR HEMOGLOBIN 30.3 pg (27.0-33.0); MEAN CORPUSCULAR HGB CONC 33.5 g/dl (32.0-36.5); MEAN CORPUSCULAR VOLUME 90.5 fl (80.0-96.0); MONO # 0.5 K/mm3 (0.0-0.8); MONO % 7.6 % (0.0-5.0); NEUTROPHILS # 4.1 K/mm3 (1.8-7.7); NEUTROPHILS % 59.4 % (36.0-66.0); PLATELET COUNT, AUTOMATED 183 k/mm3 (150-450); RED CELL DISTRIBUTION WIDTH 14.2 % (11.5-14.5); WHITE BLOOD COUNT 6.9 K/mm3 (4.0-10.0)
[2016-06-22 11:02] LABS: ANION GAP 10 MEQ/L (8-16); BLOOD UREA NITROGEN 46 MG/DL (7-18); CALCIUM LEVEL 8.4 MG/DL (8.5-10.1); CARBON DIOXIDE LEVEL 26 MEQ/L (21-32); CHLORIDE LEVEL 101 MEQ/L (98-107); CREATININE FOR GFR 2.06 MG/DL (0.70-1.30); GLOMERULAR FILTRATION RATE 35.9 (>56); GLUCOSE, FASTING 253 MG/DL (70-105); POTASSIUM SERUM 4.4 MEQ/L (3.5-5.1); SODIUM LEVEL 137 MEQ/L (136-145)
[2016-06-22 11:39] LABS: ERYTHROCYTE SEDIMENTATION RATE 57 mm/hr (0-20)
== END ==
LOC: M SFHCPLAZ 09:18
PROVIDERS: ATTEND Internal Medicine Infectious Disease
DX: A49.01 Methicillin susceptible Staphylococcus aureus infection, unspecified site (principal); E11.22 Type 2 diabetes mellitus with diabetic chronic kidney disease

== ENCOUNTER → 2016-10-03 | Outpatient (REF) | payer OTHER ==
[~2016-10-03] MED LIST changes: +ASPI81TA85 PO; -ATOR40TA PO; +ATOR40TA75 PO; +DOXY100T16 PO; +FOLB1TAB PO; +VANC125C2 PO
== END ==
LOC: M LAB REF 13:29
PROVIDERS: ATTEND Podiatrist Foot & Ankle Surgery
DX: L03.115 Cellulitis of right lower limb (principal)

== ENCOUNTER 2016-10-10 09:50 | Inpatient (IN) | payer OTHER ==
[~2016-10-10] VITALS: Ht 177.8 cm; Wt 99.5 kg
[~2016-10-10 09:50] MED LIST changes: -ASPI81TA85 PO; -DOXY100T16 PO; -FOLB1TAB PO; -VANC125C2 PO
[2016-10-10] MEDS ORDERED: DOXY100T16 PO ×2 (10:13→13:40)
[2016-10-10] MEDS ORDERED: VANCOMYCIN HCL 1,000 MG, VIAL MATE ADAPTER 1 EACH in D5W 250 ML IV ONE (12:45)
[2016-10-10] MEDS ORDERED: ASPI81TA85 PO (13:36)
[2016-10-10] MEDS ORDERED: ATOR40TA75 PO (13:36)
[2016-10-10] MEDS ORDERED: AMLO5TAB2 PO (13:36)
[2016-10-10] MEDS ORDERED: FOLB1TAB PO (13:36)
[2016-10-10] MEDS ORDERED: CINN500T PO (13:40)
[2016-10-10] MEDS ORDERED: TRAD5TAB PO (13:40)
[2016-10-10] MEDS ORDERED: GLIM1TAB PO ×2 (13:40)
[2016-10-10] MEDS ORDERED: CHLO25TA PO (13:40)
[2016-10-10] MEDS ORDERED: VITATAB11 PO (13:40)
[2016-10-10 13:51] LABS: CALCIUM LEVEL 9.3 MG/DL (8.5-10.1); CREATININE FOR GFR 2.12 MG/DL (0.70-1.30); GLOMERULAR FILTRATION RATE 34.6 (>56); POTASSIUM SERUM 4.7 MEQ/L (3.5-5.1)
[2016-10-10 14:18] LABS: EOSINOPHILS 4 % (0-5)
[2016-10-10] MEDS ORDERED: ONDANSETRON 4MG/2ML VIAL (J2405) IV PRN (14:45)
[2016-10-10] MEDS ORDERED: GLUCAGON FOR INJ 1 MG VIAL (J1610) SC PRN (14:45)
[2016-10-10] MEDS ORDERED: DEXTROSE 50% 50 ML SYRINGE IV PRN (14:45)
[2016-10-10] MEDS ORDERED: NORCO, ANEXSIA 5/325MG TABLET (HYDROcodone/ACETAMINOPHEN) PO PRN (14:45)
[2016-10-10] MEDS ORDERED: GLUCOSE 4 GM CHEW TABLET PO PRN (14:45)
[2016-10-10] MEDS ORDERED: ACETAMINOPHEN TAB 650MG DOSE (2X325MG) PO PRN (14:45)
--- NOTE | 2016-10-10 15:34 | PHACANCOPD ---
PHARMACY VANCOMYCIN DOSING Pt Demographics Demographics Patient Age:56 , Weight:104.550 , Gender: male Adjusted Body Weight Date: 10/10/16, Adjusted Body Weight: Kg Events Past 24 Hours Events Past 24 Hours: YES: Pending Diagnostics Vancomycin Vancomycin indication: INFECTION Vancomycin Target Ranges: 10-20 mcg/ml Vancomycin Load Y/N: No Load Dose Date Time Vancomycin Load Dose: Date: Time: Vancomycin Dose Date: 10/10/16. Current Vancomycin Dose: [1g IV Q12H] Intermittent Dosing?: No Labs Labs Item Value Date Time Creatinine 2.12 MG/DL H 10/10/16 1303 C-Reactive Protein, Quantitative 10.20 MG/DL H 10/10/16 1303 Micro Microbiology 10/10/16 Blood Culture, Received Pending Creatinine Clearance Date:10/10/16. Estimated Creatinine Clearance: [~40ml/min]. Pending Labs Vancomycin trough scheduled 10/12/16@1600 Assessment and Plan Maintaining Current Dose?: Yes Reason for dose change: No Dose Change Pharmacist Note Pharmacist Note Date: 10/10/16. Pharmacist note: Day #1 empiric zosyn/vancomycin initiated at 1g IV Q12H for the treatment of a foot infection - aiming for a goal trough of 10- 20mcg/ml. WBC is still pending, and the patient is afebrile. No PMH of MRSA. Pt has a hx of vanco use x 1 dose given in 2012 here at [facility]. The patient has failed outpt therapy on doxycycline and clindamycin. 10/03/16 left foot culture grew staph coag neg sensitive to vanco. Blood cultures are pending. A vancomycin trough has been scheduled for 10/12/16 @1600, prior to the 5th dose. We will continue to monitor and make adjustments as needed. [facility] Oct 10, 2016 15:34
[2016-10-10 16:19] LABS: MEAN CORPUSCULAR HGB CONC 32.6 g/dl (32.0-36.5); MEAN CORPUSCULAR VOLUME 91.8 fl (80.0-96.0); RED CELL DISTRIBUTION WIDTH 13.4 % (11.5-14.5); WHITE BLOOD COUNT 9.6 K/mm3 (4.0-10.0)
[2016-10-10] MEDS: PIPERACILLIN/TAZOBACTAM SOD 3.375 GM in D5W MINI-BAG PLUS 50 ML IV SCH ×2 (16:43→20:52)
[2016-10-10] MEDS: HumaLOG INSULIN (NovoLOG) PER UNIT SC SCH ×2 (17:30→20:53)
[2016-10-10 18:00] VITALS: BP 153/73
[2016-10-10] MEDS: VANCOMYCIN HCL 1,000 MG, VIAL MATE ADAPTER 1 EACH in D5W 250 ML IV SCH (18:33)
[2016-10-10] MEDS: ATORVASTATIN 20 MG TAB PO SCH (20:52)
[2016-10-10] MEDS: HEPARIN SOD (PORCINE) 5000 UNITS/ML VIAL SC SCH (20:52)
--- NOTE | 2016-10-10 21:59 | HPE ---
DATE OF ADMISSION: 10/10/2016 Mr. Phillips is a patient of Dr. Abelardo Carrington and Dr. Lalo Jean Baptiste, as well as Dr. Da Brewer. Chief complaint is: "My foot isn't getting any better." Mr. Phillips had a scab on the lateral aspect of his right ankle for some time, apparently this began ulcerating and draining. He was being followed by Dr. Jean Baptiste as an outpatient. He was not improving with outpatient antibiotics and Dr. Jean Baptiste sent him to the hospital for evaluation. During the course of the evaluation in the emergency department, it was thought that he needed IV antibiotic. Patient has had previous foot infections on the other foot and, in fact, lost what appears to be the 5th toe on the left foot during an admission in May of this year. Since that time he has been doing well. He intermittently follows with Dr. Chavez and Dr. Jean Baptiste and has not seen Dr. Brewer for at least a couple of months. Past medical history is notable for type 2 diabetes, not on insulin, hypercholesterolemia, hypertension, retinal hemorrhages, fatty liver, chronic kidney disease stage III, proliferative retinopathy, diabetic neuropathy, osteomyelitis of the 5th toe. ALLERGIES: COREG, BISOPROLOL, LISINOPRIL, METFORMIN, DIOVAN. 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 Family history is notable for a father with Alzheimer's disease, a mother who is well, paternal uncles with diabetes. Socially, a never smoker, does not use any alcohol. Enjoys racing electric cars. Review of systems is notable for no headache, no chest pain. He apparently presents with cough when he gets infections and he has had a dry cough without sputum production. He has not been short of breath. He has been tolerating diet. He does have numbness in both feet, but he has been uncomfortable with his current illness. On physical examination, temperature is 98.5, pulse 79, respiratory rate 18, blood pressure 153/73, 97% on room air. Intake and output notable for a positive fluid balance of 270, weight is 99.5 with a body mass index of 31.5. He is awake, appropriately interactive, pleasantly conversant, an excellent historian. Head is normocephalic. Sinuses are nontender. Pupils are round and reactive, anicteric, noninjected. Nasal septum is midline. Mucous membranes are moist. Neck is supple, somewhat thick. Breathing is symmetrical. I:E ratio is 1:3. No wheezes, rales, or rhonchi. He does feel slightly warm to touch. Heart is in a regular rate and rhythm. Radial pulses are 2+. Capillary refill is less than 2 seconds. Abdomen is soft, doughy, active bowel sounds, nontender. There is a packed wound at his right lateral malleolus, nontender to touch. There is warmth in the right leg when compared to the left, but no particular erythema. There are no foot lesions noted apart from that on the right. His 2nd toe on the left has an ulcer at the end which was not draining and appeared dry. White cell count 9.6, hemoglobin 11.8, and platelets 329. BUN 54, creatinine 2.12, calcium 9.3, C-reactive protein 10.2. Blood cultures pending, mri wet read which suggests osteomyelitis, official read pending. Plan will be as follows: This is a 56-year-old with right lower extremity osteomyelitis. Plan will be a two midnight hospital stay and as follows: 1. Infectious disease. The patient has been started on broad-spectrum antibiotic. Await culture results. Dr. Jean Baptiste has been consulted. Will likely need to consult Dr. Brewer on 10/11/2016. I did discuss the case with her in person, but did not have the MRI results at that time and so I would recommend pursuing an official consult with her tomorrow. Will need prolonged antibiotics as well as a peripherally inserted central catheter (PICC) line likely. 2. The patient has diabetes, it certainly complicates his presentation. He will be maintained on insulin during his stay. 3. The patient has an element of acute renal failure if we presume that his baseline renal function is 1.75, but certainly he is not too incredibly far from his baseline. 4. The patient has hypertension. Currently holding his antihypertensives as well as aspirin should he require surgery. Will continue his statin drug. At this point, I believe we can transition him to insulin for his stay. 5. Deep venous thrombosis (DVT) prophylaxis will be heparin. MTDD
[2016-10-10 22:00] VITALS: BP 109/58
[2016-10-11] MEDS: PIPERACILLIN/TAZOBACTAM SOD 3.375 GM in D5W MINI-BAG PLUS 50 ML IV SCH ×4 (04:35→21:45)
[2016-10-11] MEDS: VANCOMYCIN HCL 1,000 MG, VIAL MATE ADAPTER 1 EACH in D5W 250 ML IV SCH ×2 (05:30→17:05)
--- NOTE | 2016-10-11 05:49 | REP ---
MRI RIGHT FOOT WITHOUT AND WITH CONTRAST: 10/10/2016. Comparison: There are no prior pertinent studies. Clinical history: Ankle and foot pain, infection, evaluate for osteomyelitis or abscess. Concern for posterior foot on the right, erythema, swelling and pain about the ankle region. Technique: Axial T1 and fat suppressed T1 with STIR images, sagittal T2 STIR and fat suppressed T1 sequences and coronal T1, T2 STIR, fat suppressed T1 sequences performed followed by infusion of 10 mL of ProHance (half-dose because of GFR 34.6) with coronal, sagittal and axial T1 fat suppressed sequences. Findings: There is extensive subcutaneous edema all around the foot and ankle into the lower calf. There is subcutaneous swelling. There is fluid along the flexor hallicis longus tendon sheath posterior to the ankle along with fluid posterior to the ankle joint proper and anterior to that ankle joint. There is fluid posterior to the posterior subtalar joints. On contrast enhanced images, there is enhancement of the synovium of the capsule and bursal recesses. I do not see any abnormal enhancement of the talus or calcaneus. There is a hyperintense T2 STIR signal focus in the junction of the neck of the calcaneus and body which is dark signal on T1 representing a small cyst. There is also fluid along the peroneal tendons lateral to the hind foot below and distal to the lateral malleolus. I do not see tarsal bone marrow edema and STIR images show no marrow edema in the metatarsals. In the subcutaneous soft tissues, I do not see a definite abscess collection in the fat or muscle tissues. No tendon signal abnormality. No tarsal joint effusions. The distal heads of the first through fifth metatarsals are not fully evaluated on the T1 fat suppressed sequences before contrast because of the edge of field artifact. There is no edema on the STIR images there. There is some edema in the distal end of the fibula with no tibial edema. Some T2 hyperintense signal in that distal fibula without cortical disruption. It is hypointense on T1. There is some enhancement of that distal fibula on the post gadolinium images. I could not exclude infection there. Impression: 1. Joint effusion about the anterior and posterior margins of the ankle with enhancement of the synovium suggesting synovitis and joint effusion. Infection cannot be excluded within the joint. Cellulitis and edema suspected. 2. There is some abnormal enhancement about the inferior and posterior margin of the distal fibula with bright T2 signal, hypointense T1 signal in this area and enhancement on the post gadolinium images. This suggests osteomyelitis. 3. Fluid tracking along the tendon sheaths of the flexor hallicis longus posterior to the ankle and also along the peroneal brevis tendon inferior to the lateral malleolus as they extend toward the midfoot region. 4. The study was just presented to me at 7:45 PM, not made available to radiologist's until just then. I apologize for this brief delay. Signed by Davon Erwin MD 10/11/2016 11:15 A
[2016-10-11 06:00] VITALS: BP 131/71
[2016-10-11 07:06] LABS: MEAN CORPUSCULAR HEMOGLOBIN 30.1 pg (27.0-33.0); MEAN CORPUSCULAR VOLUME 91.2 fl (80.0-96.0); RED CELL DISTRIBUTION WIDTH 13.2 % (11.5-14.5); WHITE BLOOD COUNT 7.7 K/mm3 (4.0-10.0)
[2016-10-11 07:29] LABS: CALCIUM LEVEL 8.5 MG/DL (8.5-10.1); CREATININE FOR GFR 2.36 MG/DL (0.70-1.30); GLOMERULAR FILTRATION RATE 30.5 (>56)
[2016-10-11] MEDS: HumaLOG INSULIN (NovoLOG) PER UNIT SC SCH ×4 (08:22→21:00)
[2016-10-11] MEDS: HEPARIN SOD (PORCINE) 5000 UNITS/ML VIAL SC SCH ×2 (08:23→21:41)
--- NOTE | 2016-10-11 09:33 | ECGEPIP ---
Stationary ECG Study [facility] Test Date: 2016-10-11 Pat Name: AYALA SOLIS Department: Room: [place] [address] Gender: M Internal Audit Consultant: : 1960 Requested By: TIMBO Murray Order Number: [id number] Reading MD: Gabriela Ba Measurements Intervals [place] Rate: 73 P: 11 CO: 155 QRS: -11 QRSD: 121 T: 28 QT: 377 QTc: 417 Interpretive Statements SINUS RHYTHM MODERATE INTRAVENTRICULAR CONDUCTION DELAY MODERATE VOLTAGE CRITERIA FOR LVH, CONSIDER NORMAL VARIANT Left axis deviation SEPTAL STT WAVE ABN MORE MARKED C/W 05/24/16 Electronically Signed On 10-11-2016 9:33:25 EDT by Gabriela Ba
--- NOTE | 2016-10-11 12:19 | IPNPDOC ---
Subjective Date Seen The patient was seen on 10/11/16. Subjective Chief Complaint/HPI The patient is a 56-year-old male admitted with a reason for visit of Cellulitis. Events since last encounter slight discomfort in right ankle. Tolerating antibiotics without n/v, diarrhea Constitutional: Denies: Chills, Fever Pulmonary: Denies: Dyspnea, Cough Cardiovascular: Denies: Chest Pain Gastrointestinal: Denies: Nausea, Vomiting, Abdominal Pain, Diarrhea, Constipation Objective Physical Examination General Exam: Positive: Alert, No Acute Distress Chest Exam: Positive: Clear to auscultation, Normal air movement Heart Exam: Positive: Rate Normal, Regular Rhythm, Negative: Murmurs Abdomen Exam: Positive: Normal bowel sounds, Soft, Negative: Tenderness Extremity Exam: Positive: Edema (slight edema right medial maleollous) Skin Exam: Positive: Other skin issue (right ankle without erythema. Bandage C /D/I ) Assessment /Plan Problems (1) Osteomyelitis Status: Chronic Problem Text: D2 Zosyn/vanco continue broad spectrum until WCX available h/o recurrent B feet MSSA infections (no h/o MRSA/Pseudomonas) 10/11 clinically improved, CRP 8.3 (10/10 10.2), afebrile since admission, Markel to debride tonight and Osman to see 10/10/16 R foot MRI: Impression: 1. Joint effusion about the anterior and posterior margins of the ankle with enhancement of the synovium suggesting synovitis and joint effusion. Infection cannot be excluded within the joint. Cellulitis and edema suspected. 2. There is some abnormal enhancement about the inferior and posterior margin of the distal fibula with bright T2 signal, hypointense T1 signal in this area and enhancement on the post gadolinium images. This suggests osteomyelitis. 3. Fluid tracking along the tendon sheaths of the flexor hallicis longus posterior to the ankle and also along the peroneal brevis tendon inferior to the lateral malleolus as they extend toward the midfoot region. 10/10/16 BCX x 1 NG 10/03/16 R foot WCX few coag - Staph (incorrectly reported as L) (2) Cellulitis Status: Acute Problem Text: as per osteomyelitis (3) Diabetes mellitus type 2 in obese Status: Chronic Problem Text: Normally on Glimepiride 2mg am/1mg pm and Tradjenta 5 mg daily Cont SSI for now - restart oral agents as needed (4) CKD (chronic kidney disease), stage III Status: Chronic Problem Text: at baseline ~ cr 2.1-2.3 (5) Hypertension Status: Chronic Response to Treatment: Stable Plan/VTE VTE Prophylaxis Ordered?: Yes (SQ heparin) VS, I&O, 24H, Fishbone Vital Signs/I&O Vital Signs Date Time Temp Pulse Resp B/P (MAP) Pulse Ox O2 Delivery O2 Flow Rate FiO2 10/11/16 06:00 98.8 73 16 131/71 (91) 96 Room Air I&O- Last 24 Hours up to 6 AM 10/11/16 06:00 Intake Total 1110 ml Balance 1110 ml Laboratory Data 24H LABS Laboratory Tests 2 10/10/16 13:03: Neutrophils 77H, Lymphocytes (Manual) 11L, Monocytes (Manual) 8, Eosinophils ( Manual) 4, Platelet Estimate NORMAL, Red Blood Cell Morphology NORMAL, Anion Gap 8, Glomerular Filtration Rate 34.6L, Blood Urea Nitrogen 54H, Creatinine 2.12H, Sodium Level 138, Potassium Level 4.7, Chloride Level 105, Carbon Dioxide Level 25, Calcium Level 9.3, C-Reactive Protein, Quantitative 10.20H 10/11/16 06:52: Anion Gap 6L, Glomerular Filtration Rate 30.5L, Blood Urea Nitrogen 52H, Creatinine 2.36H, Sodium Level 138, Potassium Level 5.0, Chloride Level 105, Carbon Dioxide Level 27, Calcium Level 8.5, C-Reactive Protein, Quantitative 8.29H CBC/BMP Laboratory Tests 10/10/16 13:03 Calcium Level 9.3 10/11/16 06:52 Calcium Level 8.5, Red Blood Count 3.42 L, Mean Corpuscular Volume 91.2, Mean Corpuscular Hemoglobin 30.1, Mean Corpuscular Hemoglobin Concent 33.0, Red Cell Distribution Width 13.2 Microbiology Microbiology 10/10/16 Blood Culture, Received Pending JAYDEN TORRES PA-C Oct 11, 2016 12:19 Jason Cardoza M.D. Oct 11, 2016 17:22
[2016-10-11 14:00] VITALS: BP 138/77
--- NOTE | 2016-10-11 16:03 | CR ---
DATE OF CONSULTATION: 10/10/2016 REASON FOR CONSULTATION: Right ankle infection. Son Phillips is a patient of mine who has been seen last week with a new onset ulceration to his right ankle. He had severe pain to the ankle with decreased ability to stand on it. He was treated initially with clindamycin. Cultures, however, revealed that the bacteria growing was resistant to this. He was switched to doxycycline in my office on . He states over the weekend essentially he has not improved or changed. He denies fevers or chills, nausea or vomiting. He states the redness is about the same as it had been since he was seen in my office without improvement. PAST MEDICAL HISTORY: Significant for diabetes, chronic kidney disease, hypercholesterolemia, hypertension. PAST SURGICAL HISTORY: History of left 5th toe and metatarsal amputation, multiple eye surgeries. FAMILY HISTORY: Noncontributory. SOCIAL HISTORY: Denies smoking and alcohol use. ALLERGIES: BACTRIM. REVIEW OF SYSTEMS: Negative for nausea, vomiting, fever, or chills. LOWER EXTREMITY EXAMINATION: Pulses are palpable bilaterally. There is absence of protective sensation bilaterally. On the left 2nd toe there is a small ulceration to the tip of the toe, no surrounding erythema. On the right ankle there is a wound noted to the lateral aspect of the lateral malleolus. There is some packing within the wound. On the packing there does appear to be some purulent drainage, where after packing was removed with expression, no purulence is identified. No malodor. There is some surrounding erythema, both to the lateral and medial aspect of the ankle. There is pain with range of motion. With probe, no tracking or sinus is identified. ASSESSMENT: This is a 56-year-old diabetic male with a right ankle ulceration and cellulitis. PLAN: 1. Admit to hospitalist team. Start antibiotics with vancomycin and Zosyn. An MRI has been ordered, await results. Will follow. Possibility for incision and drainage. 2. Right ankle pending MRI results and clinical improvement.
[2016-10-11] MEDS ORDERED: PROPOFOL 200 MG/20 ML VIAL As Ordered ONE (17:54)
[2016-10-11] MEDS ORDERED: LIDOCAINE 2% INJ 100 MG/5 ML SDV (FOR ANES.) As Ordered ONE (17:54)
[2016-10-11] MEDS ORDERED: fentaNYL 100 MCG/2 ML INJECTION (J3010) As Ordered ONE (17:55)
[2016-10-11] MEDS ORDERED: BUPIVACAINE HCL 0.25% 30 ML VIAL As Ordered ONE (18:11)
[2016-10-11] MEDS ORDERED: LIDOCAINE 1% MDV 20ML VIAL As Ordered ONE (18:11)
[2016-10-11] MEDS ORDERED: MIDAZOLAM INJ 2 MG/2 ML VIAL (J2250) As Ordered ONE (18:47)
[2016-10-11] MEDS ORDERED: ONDANSETRON 4MG/2ML VIAL (J2405) As Ordered ONE (19:03)
[2016-10-11] MEDS ORDERED: PHENYLephrine HCL 500 MCG/5 ML (100MCG/ML) SYRINGE (J2370) As Ordered ONE (19:24)
[2016-10-11] MEDS ORDERED: PERCOCET 5MG/325MG TAB PO PRN (20:00)
[2016-10-11] MEDS ORDERED: ONDANSETRON 4MG/2ML VIAL (J2405) IV PRN (20:00)
[2016-10-11] MEDS ORDERED: LR 1,000 ML IV SCH (20:00)
[2016-10-11 20:35] VITALS: BP 141/80
[2016-10-11 21:00] VITALS: BP 121/61
[2016-10-11] MEDS: ATORVASTATIN 20 MG TAB PO SCH (21:40)
[2016-10-11 22:00] VITALS: BP 137/66
--- NOTE | 2016-10-11 22:01 | HPE ---
DATE OF ADMISSION: 10/11/2016 Patient seen and examined at bedside. States his ankle is still very sore. States pain is about the same. Denies other overnight complaints. Denies nausea, vomiting, fever, chills. Maximum temperature was 99.2. Labs are reviewed. White blood cell count is 7.7. His CRP is 8.29, down from 10.2. MRI report and images are reviewed. There is joint effusion surrounding the anterior and posterior ankle, some enhancement of the synovium. There is some abnormal enhancement surrounding the distal fibula, which is suggestive of osteomyelitis, and there is some fluid tracking around the flexor hallucis tendons. Lower extremity examination: There is persisting edema and mild erythema surrounding the lateral ankle. There is pain with motion. There is some warmth to the site. ASSESSMENT: Diabetic male with cellulitis, possible abscess, possible osteomyelitis of the fibula. PLAN: Will plan incision and drainage tonight with bone biopsy. Will attempt to obtain better cultures in the operating room. Will also plan to do a flexor tenotomy to his left 2nd toe at this time as well. He is to be nothing by mouth now. Continue current antibiotics. Will follow.
[2016-10-11 23:00] VITALS: BP 133/60
[2016-10-12] VITALS (8 sets, daily range): BP systolic 97–150; BP diastolic 53–78
[2016-10-12] MEDS ORDERED: MORPHINE 4 MG/ML 1ML SYRINGE IV ONE (02:15)
[2016-10-12] MEDS ORDERED: MORPHINE 2 MG/ML 1ML SYRINGE IV PRN (02:15)
[2016-10-12] MEDS: VANCOMYCIN HCL 1,000 MG, VIAL MATE ADAPTER 1 EACH in D5W 250 ML IV SCH ×2 (05:08→17:30)
[2016-10-12] MEDS: PIPERACILLIN/TAZOBACTAM SOD 3.375 GM in D5W MINI-BAG PLUS 50 ML IV SCH ×4 (05:08→21:55)
[2016-10-12 05:44] LABS: MEAN CORPUSCULAR HEMOGLOBIN 30.4 pg (27.0-33.0); MEAN CORPUSCULAR HGB CONC 33.1 g/dl (32.0-36.5); MEAN CORPUSCULAR VOLUME 91.7 fl (80.0-96.0); RED CELL DISTRIBUTION WIDTH 13.2 % (11.5-14.5)
[2016-10-12 06:07] LABS: CALCIUM LEVEL 8.3 MG/DL (8.5-10.1); CREATININE FOR GFR 2.63 MG/DL (0.70-1.30)
[2016-10-12 06:28] LABS: POTASSIUM SERUM 5.4 MEQ/L (3.5-5.1)
--- NOTE | 2016-10-12 06:51 | PHACANCOPD ---
PHARMACY VANCOMYCIN DOSING Pt Demographics Demographics Patient Age:56 , Weight:99.500 , Gender: male Adjusted Body Weight Date: 10/10/16, Adjusted Body Weight: [83.6] Kg Vancomycin Vancomycin indication: INFECTION Vancomycin Target Ranges: 10-20 mcg/ml Vancomycin Load Y/N: No Load Dose Date Time Vancomycin Load Dose: Date: Time: Vancomycin Dose Date: 10/10/16. Current Vancomycin Dose: [1g IV Q12H] Intermittent Dosing?: No Labs Labs Laboratory Tests 10/11/16 06:52 Red Blood Count 3.42 L, Mean Corpuscular Volume 91.2, Mean Corpuscular Hemoglobin 30.1, Mean Corpuscular Hemoglobin Concent 33.0, Red Cell Distribution Width 13.2, Calcium Level 8.5 10/12/16 05:21 Red Blood Count 3.40 L, Mean Corpuscular Volume 91.7, Mean Corpuscular Hemoglobin 30.4, Mean Corpuscular Hemoglobin Concent 33.1, Red Cell Distribution Width 13.2, Calcium Level 8.3 L Micro Microbiology 10/10/16 Blood Culture - Preliminary, Resulted No growth after 24 hours . All specim... 10/11/16 Gram Stain, Received Pending 10/11/16 Wound Culture, Received Pending 10/11/16 Gram Stain, Received Pending 10/11/16 Wound Culture, Received Pending 10/11/16 Anaerobic Culture, Received Pending Creatinine Clearance Date:10/12/16. Creatinine Clearance: [37.1].CALCULATED Date:10/10/16. Estimated Creatinine Clearance: [~40ml/min]. Assessment and Plan Maintaining Current Dose?: No Reason for dose change: Trough too high Pharmacist Note Pharmacist Note Date: 10/12/16. Pharmacist note:TROUGH DRAWN THIS A.M.=25.1(TROUGH GOAL= 10-20), PATIENT SCR RISING:TODAY IS 2.63(CALCULATED CRCL= 37.1)wILL ADJUST VANCOMYCIN REGIMEN TO 1 GRAM IV Q24 WITH NEXT DOSE TO BEGIN 10/12@1700. WILL CONTINUE TO FOLLOW LABS. Date: 10/10/16. Pharmacist note: Day #1 empiric zosyn/vancomycin initiated at 1g IV Q12H for the treatment of a foot infection - aiming for a goal trough of 10- 20mcg/ml. WBC is still pending, and the patient is afebrile. No PMH of MRSA. Pt has a hx of vanco use x 1 dose given in 2012 here at [facility]. The patient has failed outpt therapy on doxycycline and clindamycin. 10/03/16 left foot culture grew staph coag neg sensitive to vanco. Blood cultures are pending. A vancomycin trough has been scheduled for 10/12/16 @1600, prior to the 5th dose. We will continue to monitor and make adjustments as needed. [facility] Oct 12, 2016 06:51
[2016-10-12] MEDS: HumaLOG INSULIN (NovoLOG) PER UNIT SC SCH ×4 (08:42→21:00)
[2016-10-12] MEDS: NORCO, ANEXSIA 5/325MG TABLET (HYDROcodone/ACETAMINOPHEN) PO PRN ×2 (08:43→21:55)
[2016-10-12] MEDS: HEPARIN SOD (PORCINE) 5000 UNITS/ML VIAL SC SCH ×2 (08:43→21:56)
--- NOTE | 2016-10-12 10:33 | IPNPDOC ---
Subjective Date Seen The patient was seen on 10/12/16. Subjective Chief Complaint/HPI The patient is a 56-year-old male admitted with a reason for visit of Cellulitis. Events since last encounter s/p debridement and bone biopsy right ankle yesterday afternoon. Had pain requiring morphine overnight, but pain controlled today. No new complaints Constitutional: Denies: Chills, Fever Pulmonary: Denies: Dyspnea, Cough Cardiovascular: Denies: Chest Pain, Palpitations Gastrointestinal: Denies: Nausea, Vomiting, Abdominal Pain, Diarrhea, Constipation Objective Physical Examination General Exam: Positive: Alert, No Acute Distress Chest Exam: Positive: Clear to auscultation, Normal air movement Heart Exam: Positive: Rate Normal, Regular Rhythm, Negative: Murmurs Abdomen Exam: Positive: Normal bowel sounds, Soft, Negative: Tenderness Extremity Exam: Positive: Edema (slight edema right medial maleollous) Skin Exam: Positive: Other skin issue (right ankle without erythema. Bandage C /D/I ) Assessment /Plan Problems (1) Osteomyelitis Status: Chronic Problem Text: 10/12 - D3 Zosyn/vanco S/P debridement and bone biopsy 10/11 - per Dr. Ani Brewer consulted as well continue broad spectrum until WCX available h/o recurrent B feet MSSA infections (no h/o MRSA/Pseudomonas) 10/11 clinically improved, CRP 8.3 (10/10 10.2), afebrile since admission, Markel to debride tonight and Osman to see 10/10/16 R foot MRI: Impression: 1. Joint effusion about the anterior and posterior margins of the ankle with enhancement of the synovium suggesting synovitis and joint effusion. Infection cannot be excluded within the joint. Cellulitis and edema suspected. 2. There is some abnormal enhancement about the inferior and posterior margin of the distal fibula with bright T2 signal, hypointense T1 signal in this area and enhancement on the post gadolinium images. This suggests osteomyelitis. 3. Fluid tracking along the tendon sheaths of the flexor hallicis longus posterior to the ankle and also along the peroneal brevis tendon inferior to the lateral malleolus as they extend toward the midfoot region. 10/10/16 BCX x 1 NG 10/03/16 R foot WCX few coag - Staph (incorrectly reported as L) (2) Cellulitis Status: Acute Problem Text: as per osteomyelitis (3) CKD (chronic kidney disease), stage III Status: Chronic Problem Text: 10/12 - Creatinine rising = 2.6 today (baseline ~ cr 2.1-2.3) K+ up today - give Kayexalate Monitor trend - Consider having Nephrology see patient - he follows with Dr. Ovalle as outpatient (4) Diabetes mellitus type 2 in obese Status: Chronic Problem Text: Normally on Glimepiride 2mg am/1mg pm and Tradjenta 5 mg daily Cont SSI for now - restart oral agents as needed (5) Hypertension Status: Chronic Response to Treatment: Stable Plan/VTE VTE Prophylaxis Ordered?: Yes (SQ heparin) Plan Family Medicine Attending note: I saw and examined Mr. Phillips this afternoon ; I discussed his case with JOYCE Ybarra and I agree with her note above. Continue broad spectrum ATBs pending wound culture results. Cr is rising and potassium is elevated today to 5.4; TALYA may be due to vancomycin and pharmacy adjusted vancomycin dosing today. I agree with kayexelate for hyperkalemia. Will recheck BMP tomorrow - if worse, consider Nephro consult. ( KES) VS, I&O, 24H, Fishbone Vital Signs/I&O Vital Signs Date Time Temp Pulse Resp B/P (MAP) Pulse Ox O2 Delivery O2 Flow Rate FiO2 10/12/16 09:30 18 10/12/16 06:00 97.9 67 136/78 (97) 96 Room Air I&O- Last 24 Hours up to 6 AM 10/12/16 06:00 Intake Total 920 ml Output Total 25 ml Balance 895 ml Laboratory Data 24H LABS Laboratory Tests 2 10/11/16 11:25: Bedside Glucose (Misc Panel) 199H 10/11/16 16:34: Bedside Glucose (Misc Panel) 119H 10/11/16 17:45: Bedside Glucose (Misc Panel) 117H 10/11/16 21:21: Bedside Glucose (Misc Panel) 174H 10/12/16 05:21: Erythrocyte Sedimentation Rate 126H, Anion Gap 7L, Glomerular Filtration Rate 27.0L, Blood Urea Nitrogen 54H, Creatinine 2.63H, Sodium Level 143, Potassium Level 5.4H, Chloride Level 109H, Carbon Dioxide Level 27, Calcium Level 8.3L, C- Reactive Protein, Quantitative 6.33H, Vancomycin Level Trough 25.1H CBC/BMP Laboratory Tests 10/12/16 05:21 Red Blood Count 3.40 L, Mean Corpuscular Volume 91.7, Mean Corpuscular Hemoglobin 30.4, Mean Corpuscular Hemoglobin Concent 33.1, Red Cell Distribution Width 13.2, Calcium Level 8.3 L Microbiology Microbiology 10/10/16 Blood Culture - Preliminary, Resulted No growth after 24 hours . All specim... 10/11/16 Gram Stain - Final, Resulted 10/11/16 Wound Culture, Resulted Pending 10/11/16 Gram Stain - Final, Resulted 10/11/16 Wound Culture, Resulted Pending 10/11/16 Anaerobic Culture, Resulted Pending JAYDEN TORRES PA-C Oct 12, 2016 10:33 ABI PURCELL MD Oct 12, 2016 13:37
[2016-10-12] MEDS ORDERED: SOD POLYSTYRENE SULFONATE SUSP 15 GM/60 ML UD PO ONE (11:00)
[2016-10-12] MEDS: ATORVASTATIN 20 MG TAB PO SCH (21:55)
--- NOTE | 2016-10-12 22:29 | CR ---
DATE OF CONSULTATION: 10/11/2016 Asked to consult by Dr. Cardoza for evaluation of possible osteomyelitis or septic arthritis of the right ankle. HISTORY OF PRESENT ILLNESS: Son is a pleasant 56-year gentleman known to me from multiple previous admissions who had developed a scab on his right lateral malleolus about 10 days ago. The patient had noticed an ulcer that was draining with some yellowish purulent discharge. He saw Dr. Jean Baptiste as an outpatient about a week ago Monday, and he had a wound culture done on October 03, which was positive for staphylococcus coagulase negative. The patient was initially started on clindamycin. After the culture was available, he was switched to by mouth doxycycline. The patient continues to have pain in his ankle with difficulty walking and therefore came to the emergency room. He denied having any fever. He had some chills. No nausea, vomiting, or diarrhea. No abdominal pain. The patient stated his sugars have been well controlled. He does not know what triggered this ulcer. He was at a work picnic and doing very well. He did not have any new shoes. PAST MEDICAL HISTORY: Significant for: 1. Type 2 diabetes, not on insulin. 2. Hyperlipidemia. 3. Hypertension. 4. Retinal hemorrhage. 5. Fatty liver. 6. Chronic kidney disease, stage III. 7. Diabetic neuropathy and osteomyelitis of the 5th toe with most recent culture on 05/16/2016 from the 4th toe on the left side also had methicillin-sensitive Staphylococcus aureus (MSSA) infection. ALLERGIES: COREG, BISOPROLOL, LISINOPRIL, METFORMIN, DIOVAN. MEDICATIONS: - Percocet one tablet every six as needed - insulin sliding scale - Lipitor 40 mg by mouth at bedtime - vancomycin 1 gram intravenous (IV) every 12 hours - Zosyn 3.375 grams IV every 6 hours - Tylenol as needed - Zofran as needed LABORATORY DATA: White count was normal, 7.7, hemoglobin 10.3, hematocrit 31.1, platelets 328, 77% neutrophils, 11% lymphocytes. Sodium 138, potassium 5, chloride 105, bicarbonate 27, BUN 52, creatinine 2.36, glucose 270, CRP 0.29. PHYSICAL EXAMINATION: HEART: Normal S1, S2 with no murmurs, rubs or gallops. LUNGS: Clear. No wheezes, rales, or rhonchi. ABDOMEN: Soft, nontender. No hepatomegaly. EXTREMITIES: Left: No edema. Right: The patient was just in the operating room. He is able to move his ankle. The wound was not undressed, as it was just fresh from the operating room (OR). According to patient and Dr. Jean Baptiste, he had an ulcer about a quarter size with mild purulent discharge. Intraoperatively Dr. Jean Baptiste had noted an effusion in the ankle that was sent for culture but no cell count. No aspirate of the synovial fluid was sent for cell count or crystals. Cultures were sent and are still pending. IMAGING STUDY: Foot MRI done on October 10 shows joint effusion, anterior-posterior aspect of the ankle with enhancement of the synovium, suggesting synovitis. Abnormal enhancement of the distal fibula and filling tracking along the tendon sheath of the flexor hallucis longus posterior to the ankle. Possible osteomyelitis of the fibula. IMPRESSION: This is a 56-year-old gentleman with non-insulin dependent diabetes, chronic kidney disease, previous history of osteomyelitis who presented with an ankle effusion suggestive of a septic joint after he developed an ulcer on the right lateral malleolus. Initial cultures were positive for staphylococcus coagulase negative on October 03, possibly a contaminant. The patient has received already a week of antibiotic between oral and IV. Hopefully, the cultures will still be positive if it is a septic joint to help us guide with treatment. No cell count was obtained to rule out a septic joint, as the only intraoperative culture was from swabs and biopsies. PLAN: Continue IV vancomycin and Zosyn while waiting for results of culture. The patient, if she has a septic joint, will probably need a peripherally inserted central catheter (PICC) line for home IV antibiotics. Further plan will depend on results of culture. With his creatinine, I suspect the vancomycin dose is too high, 1 gram every 12 hours, and he would dissolve toxicity pretty soon with worsening renal damage. Will obtain a vancomycin trough with his next dose.
[2016-10-13] MEDS: PIPERACILLIN/TAZOBACTAM SOD 3.375 GM in D5W MINI-BAG PLUS 50 ML IV SCH ×3 (05:26→16:14)
[2016-10-13 06:00] VITALS: BP 121/68
--- NOTE | 2016-10-13 06:48 | HPE ---
DATE OF ADMISSION: 10/12/2016 HISTORY OF PRESENT ILLNESS: The patient is seen and examined at the bedside. He states he had a lot of pain last night, this may just have been due to the dressing. This was changed. He was given morphine. His pain has been resolved. He is having mild pain this morning, he states about equivalent to when he presented to the hospital. He denies nausea or vomiting, fever or chills. Vital signs are reviewed. He has been afebrile overnight. LABORATORY DATA: Labs are reviewed. White blood cell count is 8, ESR 126, CRP 6.33 down from 8.29. LOWER EXTREMITY EXAMINATION: The erythema surrounding the ankle is somewhat improved. The wounds are inspected, no purulence, no necrosis noted. Cultures are reviewed. Gram stain of the ankle fluid showed white blood cells, no organisms noted. There are no white blood cells or organisms seen in the bone specimen. Await culture growth. Pathology is pending. ASSESSMENT: This is a 56-year-old male with septic joint right ankle, possible osteomyelitis right fibula. PLAN: Continue antibiotics. The patient was discussed with Dr. Brewer last night, appreciate input. Start saline wet to dry dressings twice daily. Will plan delayed primary closure once infection has resolved.
[2016-10-13 06:59] LABS: MEAN CORPUSCULAR HEMOGLOBIN 29.2 pg (27.0-33.0); MEAN CORPUSCULAR HGB CONC 32.2 g/dl (32.0-36.5); MEAN CORPUSCULAR VOLUME 90.9 fl (80.0-96.0); RED CELL DISTRIBUTION WIDTH 13.4 % (11.5-14.5); WHITE BLOOD COUNT 7.9 K/mm3 (4.0-10.0)
[2016-10-13 07:18] LABS: CALCIUM LEVEL 9.1 MG/DL (8.5-10.1); CREATININE FOR GFR 2.63 MG/DL (0.70-1.30); POTASSIUM SERUM 4.7 MEQ/L (3.5-5.1)
[2016-10-13] MEDS: HumaLOG INSULIN (NovoLOG) PER UNIT SC SCH ×4 (09:07→21:00)
[2016-10-13] MEDS: HEPARIN SOD (PORCINE) 5000 UNITS/ML VIAL SC SCH ×2 (09:07→21:28)
--- NOTE | 2016-10-13 09:59 | RO ---
DATE OF SURGERY: 10/11/2016 PREOPERATIVE DIAGNOSES: Right foot cellulitis/abscess foot and ankle with concern for osteomyelitis, as well as left 2nd hammertoe. POSTOPERATIVE DIAGNOSES: Right foot cellulitis/abscess foot and ankle with concern for osteomyelitis, as well as left 2nd hammertoe. PROCEDURE: Left 2nd flexor tenotomy and right foot and ankle incision and drainage and bone biopsy. SURGEON: Lalo Jean Baptiste DPM HEAD TRANSFER CLERK: None ANESTHESIA: Monitored anesthesia care with preoperative injection of 20 mL of 1:1 mixture with 1% lidocaine plain and 0.5% Marcaine plain. ESTIMATED BLOOD LOSS: 20 mL. MATERIALS: 4-0 nylon. INJECTABLES: None. SPECIMEN: Bone fibula for pathology. CULTURE: Cultures of ankle joint fluid. COMPLICATIONS: None. Son Phillips is a diabetic male who had presented to the hospital with right foot and ankle infection. An MRI was taken, which showed concerns for joint space infection, as well as osteomyelitis of the distal fibula. Decision made to bring him to the operating room for irrigation and drainage. He also has a hammertoe, which is causing an ulceration in the left 2nd toe. Decision was also made to perform flexor tenotomy to decrease the pressure off that toe at the same time. The patient's side and site were identified and marked in the preoperative holding area. Consent was reviewed and obtained. All risks, complications, and alternatives of the procedure were explained to the patient in detail, and questions were answered. DESCRIPTION OF PROCEDURE: The patient was brought to the operating room and placed on the operating table in the supine position. Monitored anesthesia care was delivered by the anesthesia team. Preoperative injection of 20 mL of 1:1 mixture of 1% lidocaine plain and 0.5% Marcaine plain were injected over the left 2nd toe and right ankle. Both feet were prepped and draped in normal sterile fashion. A tourniquet was applied to the right ankle but was not inflated during the procedure. Attention was first paid to the left 2nd toe. A puncture incision was made with #15 blade at the plantar aspect of the 2nd toe. Following this, the flexor tendon was transected, and the toe position was noted. The incision was repaired with 4-0 nylon. Next, attention was paid to the right ankle. Using a curved Aliya, the tracking noted from the initial wound was probed both proximally and distally. A #15 blade was used to open this further. General appearance of the tendons and ligaments were healthy without significant signs of infection. An incision was made at the lateral aspect of the joint capsule. Synovial fluid with apparent purulence was expressed from this. This was taken for culture. Dissection was carried over the distal fibula. The bone appeared firm without obvious signs of necrosis. Using a Aristotle Circleshidi biopsy needle, two specimens of bone were taken, one for pathology, one for culture. An additional incision was made at the anterior medial gutter of the ankle joint. The capsule was incised. No purulent material was expressed from this incision. Following this, 3000 mL of normal saline fluid irrigated using pulse lavage, an additional 200 mL of fluid were injected directly into the joint using a flexible needle. No further purulence was noted. The wounds were packed with saline gauze and dry dressing. The patient was brought to postanesthesia care unit (PACU) with vital signs stable and neurovascular status intact. He will be readmitted to the floor for continued antibiotics. Await cultures and pathology for further care.
--- NOTE | 2016-10-13 11:33 | IPNPDOC ---
Subjective Date Seen The patient was seen on 10/13/16. Subjective Chief Complaint/HPI The patient is a 56-year-old male admitted with a reason for visit of Cellulitis. Events since last encounter Had 3 loose stools this am - no blood. No abd pain or n/v Constitutional: Denies: Chills, Fever Pulmonary: Denies: Dyspnea, Cough Cardiovascular: Denies: Chest Pain, Palpitations Gastrointestinal: Reports: Diarrhea, Denies: Nausea, Vomiting, Abdominal Pain, Constipation Musculoskeletal: Reports: Foot Pain (right ankle still feels tight) Objective Physical Examination General Exam: Positive: Alert, No Acute Distress Chest Exam: Positive: Clear to auscultation, Normal air movement Heart Exam: Positive: Rate Normal, Regular Rhythm, Negative: Murmurs Abdomen Exam: Positive: Normal bowel sounds, Soft, Negative: Tenderness Extremity Exam: Positive: Edema (slight edema right medial maleollous) Skin Exam: Positive: Other skin issue (right ankle without erythema. Bandage C /D/I ) Assessment /Plan Problems (1) Osteomyelitis Status: Chronic Problem Text: 10/13 - D4 Zosyn/vanco - Vanco dose adjusted due to high level. Trough pending S/P debridement and bone biopsy 10/11 - per Dr. Ani Brewer on consult PICC line to be placed today h/o recurrent B feet MSSA infections (no h/o MRSA/Pseudomonas) 10/10/16 R foot MRI: Impression: 1. Joint effusion about the anterior and posterior margins of the ankle with enhancement of the synovium suggesting synovitis and joint effusion. Infection cannot be excluded within the joint. Cellulitis and edema suspected. 2. There is some abnormal enhancement about the inferior and posterior margin of the distal fibula with bright T2 signal, hypointense T1 signal in this area and enhancement on the post gadolinium images. This suggests osteomyelitis. 3. Fluid tracking along the tendon sheaths of the flexor hallicis longus posterior to the ankle and also along the peroneal brevis tendon inferior to the lateral malleolus as they extend toward the midfoot region. 10/10/16 BCX x 1 NG 10/03/16 R foot WCX few coag - Staph (incorrectly reported as L) (2) Cellulitis Status: Acute Problem Text: as per osteomyelitis (3) CKD (chronic kidney disease), stage III Status: Chronic Problem Text: 10/13 - Creatinine remains higher than baseline today = 2.6 today - stable c/w 10/12 (baseline ~ cr 2.1-2.3) K+ level normalized with Kayexalate Vanco dose adjusted due to high level. Monitor trend of renal function - Consider having Nephrology see patient - he follows with Dr. Ovalle as outpatient (4) Diabetes mellitus type 2 in obese Status: Chronic Problem Text: Normally on Glimepiride 2mg am/1mg pm and Tradjenta 5 mg daily Blood sugars are now running 200s with oral agents on hold. Cont SSI - Restart low dose Glimepiride (5) Hypertension Status: Chronic Response to Treatment: Stable (6) Diarrhea Status: Acute Problem Text: 10/13 - loose stool x 3 today Likely related to abx Start probiotics check stool for C. Diff Plan/VTE VTE Prophylaxis Ordered?: Yes (SQ heparin) VS, I&O, 24H, Fishbone Vital Signs/I&O Vital Signs Date Time Temp Pulse Resp B/P (MAP) Pulse Ox O2 Delivery O2 Flow Rate FiO2 10/13/16 06:00 97.9 73 18 121/68 (85) 97 Room Air I&O- Last 24 Hours up to 6 AM 10/13/16 06:00 Intake Total 1660 ml Output Total 400 ml Balance 1260 ml Laboratory Data 24H LABS Laboratory Tests 2 10/12/16 11:27: Bedside Glucose (Misc Panel) 205H 10/12/16 16:46: Bedside Glucose (Misc Panel) 161H 10/12/16 20:11: Bedside Glucose (Misc Panel) 220H 10/13/16 06:30: Anion Gap 9, Glomerular Filtration Rate 27.0L, Blood Urea Nitrogen 55H, Creatinine 2.63H, Sodium Level 141, Potassium Level 4.7, Chloride Level 107, Carbon Dioxide Level 25, Calcium Level 9.1 CBC/BMP Laboratory Tests 10/13/16 06:30 Red Blood Count 3.37 L, Mean Corpuscular Volume 90.9, Mean Corpuscular Hemoglobin 29.2, Mean Corpuscular Hemoglobin Concent 32.2, Red Cell Distribution Width 13.4, Calcium Level 9.1 Microbiology Microbiology 10/10/16 Blood Culture - Preliminary, Resulted No Growth after 48 hours. All Specime... 10/11/16 Gram Stain - Final, Resulted 10/11/16 Wound Culture, Resulted Pending 10/11/16 Gram Stain - Final, Resulted 10/11/16 Wound Culture - Preliminary, Resulted 10/11/16 Anaerobic Culture - Final, Resulted JAYDEN TORRES PA-C Oct 13, 2016 11:33
[2016-10-13] MEDS: LACTOBACILLUS ACIDOPHILUS CAP (BACID) PO SCH ×2 (12:19→21:29)
[2016-10-13] MEDS: GLIMEPIRIDE 1 MG TABLET PO SCH (12:19)
[2016-10-13 16:00] VITALS: BP 168/81
[2016-10-13 16:47] LABS: URIC ACID 6.1 MG/DL (3.5-7.2)
--- NOTE | 2016-10-13 17:09 | REP ---
RIGHT PICC LINE PLACEMENT: The procedure was performed by TAMARA Dunne under the direct supervision of Dr. Leiva. The procedure along with its risks, benefits, and complications were discussed with the patient prior to the procedure. Informed consent was obtained both verbally and written. The patient was identified in interventional suite and placed in a supine position. The right arm was prepped and draped in the usual sterile fashion. A procedural "time-out" was performed to ensure that the correct patient, site and procedure were being performed. Under ultrasound guidance the right basilic vein was punctured. A thin guidewire was introduced. The needle was then removed and a break-away sheath was placed. Under fluoroscopic observation, via the break-away sheath, a 40 cm 4.5-[place] single lumen PICC line was placed with its tip at the superior vena cava. The catheter was flushed with heparinized saline and affixed to the patient's skin. The patient tolerated the procedure well and was discharged back to the floor. Fluoroscopy time: 0.4 minutes. Reviewed by TAMARA Diaz 10/14/2016 08:51 AEdited and Signed by Moses Leiva MD 10/14/2016 09:34 A
[2016-10-13] MEDS: VANCOMYCIN HCL 1,000 MG, VIAL MATE ADAPTER 1 EACH in D5W 250 ML IV SCH (17:15)
[2016-10-13] MEDS ORDERED: SODIUM CHLORIDE 0.9% INJ 10 ML SYR IV PRN (17:30)
[2016-10-13] MEDS: SODIUM CHLORIDE 0.9% INJ 10 ML SYR IV SCH (18:25)
[2016-10-13] MEDS: ATORVASTATIN 20 MG TAB PO SCH (21:28)
[2016-10-13 22:00] VITALS: BP 162/77
[2016-10-14 06:00] VITALS: BP 138/72
[2016-10-14] MEDS: SODIUM CHLORIDE 0.9% INJ 10 ML SYR IV SCH ×2 (06:00→15:17)
[2016-10-14 06:03] LABS: BASO % 0.6 % (0.0-1.0); EOS # 0.4 K/mm3 (0.0-0.50); EOS % 5.1 % (0.0-3.0); LARGE UNSTAINED CELL # 0.1 K/mm3 (0.0-0.4); LARGE UNSTAINED CELL % 1.5 % (0.0-4.0); LYMPH # 1.1 K/mm3 (1.5-4.5); LYMPH % 16.2 % (24.0-44.0); MEAN CORPUSCULAR HEMOGLOBIN 29.8 pg (27.0-33.0); MEAN CORPUSCULAR HGB CONC 32.9 g/dl (32.0-36.5); MEAN CORPUSCULAR VOLUME 90.8 fl (80.0-96.0); MONO # 0.4 K/mm3 (0.0-0.8); NEUTROPHILS % 70.6 % (36.0-66.0); PLATELET COUNT, AUTOMATED 315 k/mm3 (150-450); RED CELL DISTRIBUTION WIDTH 13.3 % (11.5-14.5); WHITE BLOOD COUNT 7.1 K/mm3 (4.0-10.0)
[2016-10-14 06:11] LABS: ERYTHROCYTE SEDIMENTATION RATE 106 mm/hr (0-20)
[2016-10-14 06:30] LABS: ALBUMIN 2.6 GM/DL (3.2-5.2); ALBUMIN/GLOBULIN RATIO 0.58 (1.00-1.93); BILIRUBIN,TOTAL 0.4 MG/DL (0.2-1.0); CALCIUM LEVEL 8.5 MG/DL (8.5-10.1); CREATININE FOR GFR 1.94 MG/DL (0.70-1.30); GLOMERULAR FILTRATION RATE 38.3 (>56); POTASSIUM SERUM 4.6 MEQ/L (3.5-5.1); TOTAL PROTEIN 7.1 GM/DL (6.4-8.2)
[2016-10-14] MEDS: LACTOBACILLUS ACIDOPHILUS CAP (BACID) PO SCH (09:00)
[2016-10-14] MEDS: HumaLOG INSULIN (NovoLOG) PER UNIT SC SCH ×2 (09:00→12:45)
[2016-10-14] MEDS: metroNIDAZOLE (FLAGYL) 500 MG TAB PO SCH ×2 (09:00→15:16)
[2016-10-14] MEDS: HEPARIN SOD (PORCINE) 5000 UNITS/ML VIAL SC SCH (09:01)
[2016-10-14] MEDS: GLIMEPIRIDE 1 MG TABLET PO SCH (09:02)
--- NOTE | 2016-10-14 10:51 | IPN ---
DATE: 10/13/2016 SUBJECTIVE: The patient is seen and examined at bedside. States pain is improving. Feels his ankle is still stiff but a little improved compared to yesterday. He has been able to bear weight with less discomfort. He has been afebrile over the last 24 hours. White blood cell count is 7.9. Await final report for ankle fluid culture and bone culture. Pathology of bone was negative for osteomyelitis. LOWER EXTREMITY EXAMINATION: Improvement in erythema and edema. There is no necrosis. No purulence noted in wound. No purulence with expression or motion of the joint. ASSESSMENT: This is a 56-year-old male with septic joint. PLAN: Peripherally inserted central catheter (PICC) line has been ordered. Most likely will be able to be discharged tomorrow to have followup with me in office next week. Did order a uric acid just as precaution to rule out any concern for gout.
[2016-10-14 14:00] VITALS: BP 165/80
[2016-10-14] MEDS ORDERED: VANC125C2 PO (14:01)
[2016-10-14] MEDS: VANCOMYCIN HCL 1,000 MG, VIAL MATE ADAPTER 1 EACH in D5W 250 ML IV SCH (15:16)
--- NOTE | 2016-10-15 04:43 | IPN ---
DATE OF SERVICE: 10/14/2016 Denys is doing well. He is anxious to go home. He denies any fever or chills. He had some diarrhea yesterday, but he had two doses of Kayexalate on Monday and he thinks the diarrhea was related to Kayexalate. Today he only had one bowel movement. He denies any abdominal pain, nausea or vomiting. No fever or chills. Temperature is 99.3, pulse 71, respirations 18, blood pressure 138/72, oxygen saturation 94% on room air. Heart: Normal S1, S2. No murmurs. Lungs are clear. Abdomen is soft, nontender. Extremities: No edema. Right ankle has an open incision measuring about 7 cm. Ankle range of motion is normal. He had minimal erythema around the wound. LABORATORY DATA: White count of 7.1, hemoglobin 10.3, hematocrit 31.3, platelets 315, 70% neutrophils, 16% lymphocytes. ESR 106. Sodium 143, potassium 4.6, chloride 108, bicarbonate 26, BUN 43, creatinine 1.9, glucose 192. Liver profile normal. CRP 9.9. Stool for Clostridium (C) difficile was sent and was positive for AMB yesterday at 6 p.m. Wound culture and ankle culture both had Staphylococcus coagulase negative, methicillin resistant. Vancomycin IZZY of 2. IMPRESSION: 1. Septic arthritis of the right ankle status post incision and drainage Culture positive for Staphylococcus coagulase negative. On intravenous (IV) vancomycin doing better has Increased range of motion. 2. Diarrhea possibly related to Kayexalate, possibly Clostridium (C) difficile. It has resolved within 24 hours. I suspect it was more related to Kayexalate, but the patient has been on broad-spectrum antibiotics including Zosyn and previously clindamycin and doxycycline and therefore would rather treat it than not as he will be on senior living IV antibiotics PLAN: Discharge home on IV vancomycin 1 gram every 24 hours for another total of 20 days. Continue oral vancomycin 125 mg by mouth four times a day for 10 days. Monitor complete blood count (CBC), basic, C-reactive protein (CRP) and vancomycin trough weekly starting on Monday. The patient could followup in my office in 2 weeks. Case has been discussed with Evonne Carrington, who is primary care. [facility]ida
--- NOTE | 2016-10-15 16:07 | DSES ---
DATE OF ADMISSION: 10/10/2016 DATE OF DISCHARGE: 10/14/2016 BRIEF HISTORY AND PHYSICAL: The patient is a 56-year-old patient of Dr. Carrington, who has a history of diabetes and chronic kidney disease, has been following with Dr. Jean Baptiste as an outpatient for a scab in the lateral aspect of his right ankle, began ulcerating and draining. He saw Dr. Jean Baptiste in the office; he sent to the hospital for evaluation and initiation of intravenous (IV) antibiotics. He had been undergoing treatment with oral antibiotics as an outpatient. He has followed with Dr. Chavez, Dr. Jean Baptiste, and Dr. Brewer intermittently in the past for infection in his left leg. Past medical history is significant for non-insulin requiring diabetes, hypercholesterolemia, hypertension, retinal hemorrhages, chronic kidney disease stage III, proliferative retinopathy, diabetic neuropathy osteomyelitis of fifth toe. PERTINENT LABORATORIES ON ADMISSION: White blood count 9.6, hemoglobin 11.8, platelets 329,000. BUN 54, creatinine 2.12. CRP was 10.2. MRI of right foot showed a joint effusion about the anterior and posterior margins of the ankle with enhancement of the synovium suggesting synovitis and joint effusion. Infection cannot be excluded. Cellulitis and edema or suspected. There is some abnormal enhancement about the inferior and posterior margin of the distal fibula suggesting osteomyelitis. Fluid tracking line with tendon sheath of the flexor hallucis longus posterior to the ankle and also along the peroneal brevis tendon inferior to the lateral malleolus as they extended toward the midfoot region. HOSPITAL COURSE: 1. 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 He was started on vancomycin and Zosyn. Dr. Jean Baptiste saw him in consultation and performed left second flexor tendinotomy and right foot and ankle incision and drainage and bone biopsy. Wound cultures grew coagulase-negative staphylococcus, few. Dr. Brewer has been following the patient in consultation as well and recommends six weeks of IV antibiotics. At this point, we were going to use IV vancomycin because he developed Clostridium (C.) difficile while in the hospital and, although he probably would respond to an alternative antibiotic, given his current C. difficile infection, the IV vancomycin would be the best approach. 2. Clostridium difficile infection. The patient developed diarrhea without fever, white count or significant abdominal pain, but has been having diarrhea, about four loose stools a day. Gastrointestinal (GI) panel was positive for C. difficile. He will be sent home on oral vancomycin. 3. Acute and chronic kidney disease. His renal function did rise, felt likely to be related to the infection as well as toxic level of vancomycin. His vancomycin dose has been adjusted accordingly and his renal function has returned toward baseline. BUN and creatinine were 43 and 1.94 at the time of discharge and will need to be followed as an outpatient. 4. Diabetes mellitus type 2. His oral regimen was held but will be restarted upon discharge. He was on Tradjenta and glimepiride. 5. Hypertension. He is normally on chlorthalidone. This has been held due to the renal issues. His blood pressure is variable but for the most part controlled on the (please clarify). He may need initiation of additional blood pressure medicines as an outpatient. DISPOSITION: He is stable for discharge home to followup with Dr. Carrington next week. Followup with Dr. Jean Baptiste per his office, and followup with Dr. Brewer per her office. Diet consistent carbohydrate. Activity as tolerated with abelino walker. Medications: - amlodipine 5 mg daily - aspirin 81 mg daily - atorvastatin 40 mg at bedtime - B complex daily - cinnamon 500 mg twice a day - glimepiride 2 mg in the morning, 1 mg in the evening - Tradjenta 5 mg daily - vancomycin 125 mg four times a day; will discuss with Dr. Brewer length of therapy and IV vancomycin every 12 hours with vancomycin dosing adjustments per vancomycin levels as outpatient.
== END 2016-10-14 16:41 | disposition home health service (06) | DRG 317 ==
LOC: M ED 09:50 → M ED INP 14:40 → M MSPAV 17:13
PROVIDERS: ADMIT Internal Medicine; ATTEND Family Medicine
PROC: 0QBJ0ZX Excision of Right Fibula, Open Approach, Diagnostic (ICD-10-PCS; 2016-10-11)
PROC: 0L8W3ZZ Division of Left Foot Tendon, Percutaneous Approach (ICD-10-PCS; principal; 2016-10-11 12:26)
PROC: 0S9F0ZX Drainage of Right Ankle Joint, Open Approach, Diagnostic (ICD-10-PCS; 2016-10-11 12:26)
PROC: 02HV33Z Insertion of Infusion Device into Superior Vena Cava, Percutaneous Approach (ICD-10-PCS; 2016-10-13)
DX: M00.071 Staphylococcal arthritis, right ankle and foot (principal); E11.22 Type 2 diabetes mellitus with diabetic chronic kidney disease; E11.40 Type 2 diabetes mellitus with diabetic neuropathy, unspecified; A04.7 Enterocolitis due to Clostridium difficile; L03.115 Cellulitis of right lower limb; N18.3 Chronic kidney disease, stage 3 (moderate); E78.00 Pure hypercholesterolemia, unspecified; I12.9 Hypertensive chronic kidney disease with stage 1 through stage 4 chronic kidney disease, or unspecified chronic kidney disease; Z79.82 Long term (current) use of aspirin; Z79.899 Other long term (current) drug therapy; Z89.422 Acquired absence of other left toe(s); Z88.8 Allergy status to other drugs, medicaments and biological substances; B95.7 Other staphylococcus as the cause of diseases classified elsewhere

== ENCOUNTER → 2016-10-17 | Outpatient (REF) | payer OTHER ==
[~2016-10-17] MED LIST changes: +ASPI81TA85 PO; +DOXY100T16 PO; +FOLB1TAB PO; +VANC125C2 PO
[2016-10-17 19:09] LABS: CALCIUM LEVEL 9.2 MG/DL (8.5-10.1); CREATININE FOR GFR 1.92 MG/DL (0.70-1.30); GLOMERULAR FILTRATION RATE 38.8 (>56); POTASSIUM SERUM 4.2 MEQ/L (3.5-5.1)
[2016-10-17 19:40] LABS: BASO # 0.1 K/mm3 (0.0-0.2); BASO % 0.9 % (0.0-1.0); EOS # 0.4 K/mm3 (0.0-0.50); EOS % 5.8 % (0.0-3.0); LARGE UNSTAINED CELL # 0.1 K/mm3 (0.0-0.4); LARGE UNSTAINED CELL % 1.7 % (0.0-4.0); LYMPH # 1.5 K/mm3 (1.5-4.5); LYMPH % 17.7 % (24.0-44.0); MEAN CORPUSCULAR HEMOGLOBIN 29.6 pg (27.0-33.0); MEAN CORPUSCULAR HGB CONC 32.6 g/dl (32.0-36.5); MEAN CORPUSCULAR VOLUME 90.8 fl (80.0-96.0); MONO # 0.4 K/mm3 (0.0-0.8); MONO % 4.8 % (0.0-5.0); NEUTROPHILS # 5.3 K/mm3 (1.8-7.7); PLATELET COUNT, AUTOMATED 331 k/mm3 (150-450); RED CELL DISTRIBUTION WIDTH 13.5 % (11.5-14.5); WHITE BLOOD COUNT 7.7 K/mm3 (4.0-10.0)
== END ==
LOC: M LAB REF 17:10
PROVIDERS: ATTEND Internal Medicine Infectious Disease
DX: E11.621 Type 2 diabetes mellitus with foot ulcer (principal); L97.509 Non-pressure chronic ulcer of other part of unspecified foot with unspecified severity

== ENCOUNTER → 2016-10-24 | Outpatient (REF) | payer OTHER ==
[2016-10-24 18:29] LABS: BASO # 0.1 K/mm3 (0.0-0.2); BASO % 1.1 % (0.0-1.0); EOS # 0.5 K/mm3 (0.0-0.50); EOS % 7.3 % (0.0-3.0); LARGE UNSTAINED CELL # 0.1 K/mm3 (0.0-0.4); LYMPH # 1.1 K/mm3 (1.5-4.5); LYMPH % 15.6 % (24.0-44.0); MEAN CORPUSCULAR HEMOGLOBIN 29.6 pg (27.0-33.0); MEAN CORPUSCULAR HGB CONC 33.8 g/dl (32.0-36.5); MEAN CORPUSCULAR VOLUME 87.6 fl (80.0-96.0); MONO # 0.4 K/mm3 (0.0-0.8); NEUTROPHILS # 4.4 K/mm3 (1.8-7.7); PLATELET COUNT, AUTOMATED 271 k/mm3 (150-450); RED CELL DISTRIBUTION WIDTH 13.6 % (11.5-14.5); WHITE BLOOD COUNT 6.4 K/mm3 (4.0-10.0)
[2016-10-24 18:32] LABS: CALCIUM LEVEL 8.3 MG/DL (8.5-10.1); CREATININE FOR GFR 1.58 MG/DL (0.70-1.30); GLOMERULAR FILTRATION RATE 48.5 (>56); POTASSIUM SERUM 4.5 MEQ/L (3.5-5.1)
== END ==
LOC: M LAB REF 18:11
PROVIDERS: ATTEND Internal Medicine Infectious Disease
DX: E11.621 Type 2 diabetes mellitus with foot ulcer (principal); M86.8X7 Other osteomyelitis, ankle and foot; L97.409 Non-pressure chronic ulcer of unspecified heel and midfoot with unspecified severity

== ENCOUNTER → 2016-10-31 | Outpatient (REF) | payer OTHER ==
[2016-10-31 18:40] LABS: CALCIUM LEVEL 8.7 MG/DL (8.5-10.1); CREATININE FOR GFR 1.77 MG/DL (0.70-1.30); GLOMERULAR FILTRATION RATE 42.6 (>56); POTASSIUM SERUM 4.4 MEQ/L (3.5-5.1)
[2016-10-31 18:50] LABS: BASO % 0.9 % (0.0-1.0); EOS # 0.6 K/mm3 (0.0-0.50); EOS % 11.7 % (0.0-3.0); LARGE UNSTAINED CELL # 0.2 K/mm3 (0.0-0.4); LARGE UNSTAINED CELL % 3.5 % (0.0-4.0); LYMPH # 1.1 K/mm3 (1.5-4.5); LYMPH % 17.9 % (24.0-44.0); MEAN CORPUSCULAR HGB CONC 33.1 g/dl (32.0-36.5); MEAN CORPUSCULAR VOLUME 87.5 fl (80.0-96.0); MONO # 0.4 K/mm3 (0.0-0.8); MONO % 7.8 % (0.0-5.0); NEUTROPHILS # 3.1 K/mm3 (1.8-7.7); NEUTROPHILS % 58.1 % (36.0-66.0); PLATELET COUNT, AUTOMATED 208 k/mm3 (150-450); RED CELL DISTRIBUTION WIDTH 13.8 % (11.5-14.5); WHITE BLOOD COUNT 5.4 K/mm3 (4.0-10.0)
== END ==
LOC: M LAB REF 16:38
PROVIDERS: ATTEND Internal Medicine Infectious Disease
DX: E11.621 Type 2 diabetes mellitus with foot ulcer (principal); M86.8X7 Other osteomyelitis, ankle and foot; L97.409 Non-pressure chronic ulcer of unspecified heel and midfoot with unspecified severity

== ENCOUNTER → 2016-11-07 | Outpatient (REF) | payer OTHER ==
[2016-11-07 20:08] LABS: BASO # 0.1 K/mm3 (0.0-0.2); BASO % 1.1 % (0.0-1.0); EOS # 0.6 K/mm3 (0.0-0.50); EOS % 8.8 % (0.0-3.0); LARGE UNSTAINED CELL # 0.1 K/mm3 (0.0-0.4); LARGE UNSTAINED CELL % 1.2 % (0.0-4.0); LYMPH # 1.3 K/mm3 (1.5-4.5); LYMPH % 18.5 % (24.0-44.0); MEAN CORPUSCULAR HEMOGLOBIN 28.3 pg (27.0-33.0); MEAN CORPUSCULAR HGB CONC 32.4 g/dl (32.0-36.5); MEAN CORPUSCULAR VOLUME 87.3 fl (80.0-96.0); MONO # 0.4 K/mm3 (0.0-0.8); MONO % 6.8 % (0.0-5.0); NEUTROPHILS % 63.6 % (36.0-66.0); PLATELET COUNT, AUTOMATED 216 k/mm3 (150-450); RED CELL DISTRIBUTION WIDTH 14.6 % (11.5-14.5); WHITE BLOOD COUNT 6.3 K/mm3 (4.0-10.0)
[2016-11-07 20:59] LABS: CREATININE FOR GFR 1.64 MG/DL (0.70-1.30); GLOMERULAR FILTRATION RATE 46.5 (>56); POTASSIUM SERUM 4.6 MEQ/L (3.5-5.1); VANCOMYCIN RANDOM 10.3 UG/ML
== END ==
LOC: M LAB REF 09:50
PROVIDERS: ATTEND Internal Medicine Infectious Disease
DX: M86.8X7 Other osteomyelitis, ankle and foot (principal); E11.621 Type 2 diabetes mellitus with foot ulcer

== ENCOUNTER → 2017-03-07 | Outpatient (REF) | payer OTHER ==
[2017-03-07 16:57] LABS: ANION GAP 5 MEQ/L (8-16); BLOOD UREA NITROGEN 31 MG/DL (7-18); C REACTIVE PROTEIN QUANTITATIV 0.32 MG/DL (0.00-0.30); CALCIUM LEVEL 8.6 MG/DL (8.5-10.1); CARBON DIOXIDE LEVEL 27 MEQ/L (21-32); CHLORIDE LEVEL 108 MEQ/L (98-107); CREATININE FOR GFR 1.71 MG/DL (0.70-1.30); GLOMERULAR FILTRATION RATE 44.3 (>56); GLUCOSE, FASTING 157 MG/DL (70-105); POTASSIUM SERUM 4.9 MEQ/L (3.5-5.1); SODIUM LEVEL 140 MEQ/L (136-145)
[2017-03-07 17:02] LABS: BASO # 0.1 10^3/uL (0.0-0.2); BASO % 0.6 % (0.0-1.0); EOS # 0.4 10^3/uL (0.0-0.50); EOS % 4.7 % (0.0-3.0); HEMATOCRIT 39.7 % (42.0-52.0); HEMOGLOBIN 13.1 g/dl (14.0-18.0); IMMATURE GRANULOCYTE % 0.2 % (0-0); LYMPH # 1.6 10^3/uL (1.5-4.5); LYMPH % 20.2 % (24.0-44.0); MEAN CORPUSCULAR HEMOGLOBIN 28.8 pg (27.0-33.0); MEAN CORPUSCULAR VOLUME 87.3 fl (80.0-96.0); MONO # 0.6 10^3/uL (0.0-0.8); NEUTROPHILS # 5.5 10^3/uL (1.8-7.7); NEUTROPHILS % 67.3 % (36.0-66.0); PLATELET COUNT, AUTOMATED 206 10^3/uL (150-450); RED BLOOD COUNT 4.55 10^6/uL (4.30-6.10); RED CELL DISTRIBUTION WIDTH 13.9 % (11.5-14.5); WHITE BLOOD COUNT 8.1 10^3/uL (4.0-10.0)
[2017-03-07 17:07] LABS: ESTIMATED AVERAGE GLUCOSE 183 MG/DL (60-110)
[2017-03-07 18:32] LABS: ERYTHROCYTE SEDIMENTATION RATE 48 mm/hr (0-20)
== END ==
LOC: M SFHCPLAZ 14:07
DX: E11.622 Type 2 diabetes mellitus with other skin ulcer (principal); L97.319 Non-pressure chronic ulcer of right ankle with unspecified severity

== ENCOUNTER → 2017-06-05 | Outpatient (REF) | payer OTHER | LOC: M LAB REF 17:31 | DX: I96 Gangrene, not elsewhere classified (principal); M86.172 Other acute osteomyelitis, left ankle and foot | CPT/HCPCS: 87077; 87186 ==

== ENCOUNTER → 2017-06-15 | Outpatient (REF) | payer OTHER ==
[2017-06-15 12:48] LABS: BASO % 0.2 % (0.0-1.0); EOS # 0.1 10^3/uL (0.0-0.50); EOS % 0.7 % (0.0-3.0); HEMATOCRIT 34.4 % (42.0-52.0); HEMOGLOBIN 10.6 g/dl (13.5-17.5); IMMATURE GRANULOCYTE % 0.5 % (0-3.0); LYMPH # 0.9 10^3/uL (1.5-4.5); LYMPH % 6.7 % (24.0-44.0); MEAN CORPUSCULAR HEMOGLOBIN 29.8 pg (27.0-33.0); MEAN CORPUSCULAR HGB CONC 30.8 g/dl (32.0-36.5); MEAN CORPUSCULAR VOLUME 96.6 fl (80.0-96.0); MONO # 0.8 10^3/uL (0.0-0.8); MONO % 6.1 % (0.0-5.0); NEUTROPHILS # 11.8 10^3/uL (1.8-7.7); NEUTROPHILS % 85.8 % (36.0-66.0); PLATELET COUNT, AUTOMATED 205 10^3/uL (150-450); RED BLOOD COUNT 3.56 10^6/uL (4.30-6.10); RED CELL DISTRIBUTION WIDTH 13.3 % (11.5-14.5); WHITE BLOOD COUNT 13.7 10^3/uL (4.0-10.0)
[2017-06-15 12:59] LABS: ANION GAP 10 MEQ/L (8-16); BLOOD UREA NITROGEN 50 MG/DL (7-18); CALCIUM LEVEL 8.3 MG/DL (8.5-10.1); CARBON DIOXIDE LEVEL 24 MEQ/L (21-32); CHLORIDE LEVEL 101 MEQ/L (98-107); CREATININE FOR GFR 2.56 MG/DL (0.70-1.30); GLOMERULAR FILTRATION RATE 27.8 (>56); GLUCOSE, FASTING 275 MG/DL (70-100); SODIUM LEVEL 135 MEQ/L (136-145)
[2017-06-15 13:12] LABS: ESTIMATED AVERAGE GLUCOSE 177 MG/DL (60-110); HEMOGLOBIN A1c 7.8 %
[2017-06-15 13:27] LABS: ERYTHROCYTE SEDIMENTATION RATE 47 mm/hr (0-20)
== END ==
LOC: M LAB REF 11:57
DX: E11.622 Type 2 diabetes mellitus with other skin ulcer (principal)

== ENCOUNTER 2017-06-16 10:55 | Inpatient (IN) | payer OTHER ==
[2017-06-16] MEDS: CEFTAROLINE FOSAMIL 600 MG in D5W MINI-BAG PLUS 50 ML IV (12:05)
[2017-06-16] MEDS: NS 1,000 ML IV ×2 (12:05→16:32)
[2017-06-16 12:17] LABS: BASO % 0.4 % (0.0-1.0); EOS # 0.1 10^3/uL (0.0-0.50); EOS % 0.9 % (0.0-3.0); HEMATOCRIT 29.6 % (42.0-52.0); HEMOGLOBIN 9.7 g/dl (13.5-17.5); IMMATURE GRANULOCYTE % 0.5 % (0-3.0); LYMPH # 1.1 10^3/uL (1.5-4.5); LYMPH % 9.2 % (24.0-44.0); MEAN CORPUSCULAR HEMOGLOBIN 29.6 pg (27.0-33.0); MEAN CORPUSCULAR HGB CONC 32.8 g/dl (32.0-36.5); MEAN CORPUSCULAR VOLUME 90.2 fl (80.0-96.0); MONO # 0.9 10^3/uL (0.0-0.8); MONO % 7.9 % (0.0-5.0); NEUTROPHILS # 9.2 10^3/uL (1.8-7.7); NEUTROPHILS % 81.1 % (36.0-66.0); PLATELET COUNT, AUTOMATED 287 10^3/uL (150-450); RED BLOOD COUNT 3.28 10^6/uL (4.30-6.10); RED CELL DISTRIBUTION WIDTH 12.7 % (11.5-14.5); WHITE BLOOD COUNT 11.4 10^3/uL (4.0-10.0)
[2017-06-16 12:41] LABS: LACTIC ACID SEPSIS PROTOCOL 0.9 MMOL/L (0.4-2.0)
[2017-06-16 12:42] LABS: ALBUMIN 2.5 GM/DL (3.2-5.2); ALBUMIN/GLOBULIN RATIO 0.45 (1.00-1.93); ALKALINE PHOSPHATASE 73 U/L (45-117); ALT/SGPT 46 U/L (12-78); ANION GAP 6 MEQ/L (8-16); AST/SGOT 39 U/L (7-37); BILIRUBIN,TOTAL 0.8 MG/DL (0.2-1.0); BLOOD UREA NITROGEN 55 MG/DL (7-18); CALCIUM LEVEL 8.4 MG/DL (8.5-10.1); CARBON DIOXIDE LEVEL 25 MEQ/L (21-32); CHLORIDE LEVEL 102 MEQ/L (98-107); CREATININE FOR GFR 2.35 MG/DL (0.70-1.30); GLOMERULAR FILTRATION RATE 30.7 (>56); GLUCOSE, FASTING 122 MG/DL (70-100); POTASSIUM SERUM 4.2 MEQ/L (3.5-5.1); SODIUM LEVEL 133 MEQ/L (136-145)
[2017-06-16 12:43] LABS: ERYTHROCYTE SEDIMENTATION RATE > 140 mm/hr (0-20)
[2017-06-16] MEDS ORDERED: DEXTROSE 50% 50 ML SYRINGE IV (14:45)
[2017-06-16] MEDS: D5W/0.9% SODIUM CHLORIDE 1,000 ML IV (14:45)
[2017-06-16] MEDS ORDERED: GLUCAGON FOR INJ 1 MG VIAL (J1610) SC (14:45)
[2017-06-16] MEDS ORDERED: GLUCOSE 4 GM CHEW TABLET PO (14:45)
[2017-06-16] MEDS: VANCOMYCIN HCL 1,000 MG, VIAL MATE ADAPTER 1 EACH in D5W 250 ML IV (15:12)
[2017-06-16] MEDS: LACTOBACILLUS ACIDOPHILUS CAP (BACID) PO ×2 (16:31→20:23)
[2017-06-16] MEDS: amLODIPine 5 MG TAB PO (16:31)
[2017-06-16] MEDS: MEROPENEM INJ 1 GM in APPROPRIATE DILUENT 1 EA IV ×2 (16:32→23:17)
[2017-06-16] MEDS: HumaLOG INSULIN (NovoLOG) PER UNIT SC (17:12)
[2017-06-16 17:15] LABS: BEDSIDE GLUCOSE 121 MG/DL (70-105)
[2017-06-16] MEDS: ATORVASTATIN 20 MG TAB PO (20:23)
[2017-06-16] MEDS: ASPIRIN 81 MG ENTERIC TAB PO (20:23)
[2017-06-16] MEDS: ACETAMINOPHEN TAB 650MG DOSE (2X325MG) PO (23:17)
[2017-06-16 23:55] LABS: BEDSIDE GLUCOSE 73 MG/DL (70-105)
[2017-06-17] MEDS: NS 1,000 ML IV ×3 (01:47→18:50)
[2017-06-17 05:40] LABS: BASO % 0.4 % (0.0-1.0); EOS # 0.3 10^3/uL (0.0-0.50); EOS % 2.9 % (0.0-3.0); HEMATOCRIT 28.3 % (42.0-52.0); HEMOGLOBIN 9.2 g/dl (13.5-17.5); IMMATURE GRANULOCYTE % 0.4 % (0-3.0); LYMPH # 1.2 10^3/uL (1.5-4.5); LYMPH % 10.9 % (24.0-44.0); MEAN CORPUSCULAR HEMOGLOBIN 29.8 pg (27.0-33.0); MEAN CORPUSCULAR HGB CONC 32.5 g/dl (32.0-36.5); MEAN CORPUSCULAR VOLUME 91.6 fl (80.0-96.0); MONO # 1.1 10^3/uL (0.0-0.8); NEUTROPHILS # 8.1 10^3/uL (1.8-7.7); NEUTROPHILS % 75.4 % (36.0-66.0); PLATELET COUNT, AUTOMATED 272 10^3/uL (150-450); RED BLOOD COUNT 3.09 10^6/uL (4.30-6.10); RED CELL DISTRIBUTION WIDTH 12.9 % (11.5-14.5); WHITE BLOOD COUNT 10.8 10^3/uL (4.0-10.0)
[2017-06-17 05:58] LABS: ANION GAP 7 MEQ/L (8-16); BLOOD UREA NITROGEN 48 MG/DL (7-18); CARBON DIOXIDE LEVEL 24 MEQ/L (21-32); CHLORIDE LEVEL 110 MEQ/L (98-107); CREATININE FOR GFR 2.44 MG/DL (0.70-1.30); GLOMERULAR FILTRATION RATE 29.4 (>56); GLUCOSE, FASTING 56 MG/DL (70-100); POTASSIUM SERUM 4.5 MEQ/L (3.5-5.1); SODIUM LEVEL 141 MEQ/L (136-145)
[2017-06-17] MEDS: HumaLOG INSULIN (NovoLOG) PER UNIT SC ×4 (06:00→18:12)
[2017-06-17] MEDS: VANCOMYCIN HCL 1,000 MG, VIAL MATE ADAPTER 1 EACH in D5W 250 ML IV ×2 (06:01→23:39)
[2017-06-17] MEDS ORDERED: HEPARIN SOD (PORCINE) 5000 UNITS/ML VIAL SQ (08:00)
[2017-06-17] MEDS: MEROPENEM INJ 1 GM in APPROPRIATE DILUENT 1 EA IV ×2 (08:16→16:33)
[2017-06-17] MEDS ORDERED: LIDOCAINE 2% INJ 100 MG/5 ML SDV (FOR ANES.) As Ordered (09:10)
[2017-06-17] MEDS ORDERED: PROPOFOL 200 MG/20 ML VIAL As Ordered ×2 (09:10→10:05)
[2017-06-17] MEDS ORDERED: MIDAZOLAM INJ 2 MG/2 ML VIAL (J2250) As Ordered (09:11)
[2017-06-17] MEDS ORDERED: fentaNYL 100 MCG/2 ML INJECTION (J3010) As Ordered (09:12)
[2017-06-17] MEDS: ROPIvacaine 0.5% 30 ML INJECTION (J2795 PER 1MG) As Ordered (09:54)
[2017-06-17] MEDS: NEOSPORIN GU IRRIG 20 ML VIAL As Ordered (09:55)
[2017-06-17] MEDS: dexameTHASONE 4 MG/ML 1ML VIAL (J1100) As Ordered (09:55)
[2017-06-17] MEDS: BACITRACIN PWD 50,000 UNITS VIAL As Ordered (09:55)
[2017-06-17] MEDS: BUPIVACAINE HCL 0.5% 30 ML VIAL As Ordered (09:55)
[2017-06-17] MEDS: LIDOCAINE 2% MDV 20 ML VIAL As Ordered (09:55)
[2017-06-17] MEDS: VANCOMYCIN HCL 500 MG/10 ML VIAL (J3370) As Ordered (10:11)
[2017-06-17] MEDS ORDERED: ePHEDrine SULFATE 25 MG/5 ML(5MG/ML) SYRINGE As Ordered (10:13)
[2017-06-17] MEDS ORDERED: PERCOCET 5MG/325MG TAB PO (10:45)
[2017-06-17] MEDS ORDERED: fentaNYL 100 MCG/2 ML INJECTION (J3010) IV (10:45)
[2017-06-17] MEDS: LR 1,000 ML IV (11:11)
[2017-06-17 11:45] LABS: BEDSIDE GLUCOSE 73 MG/DL (70-105)
[2017-06-17] MEDS: VITAMIN B COMPLEX/VIT C CAP PO (12:11)
[2017-06-17] MEDS: LACTOBACILLUS ACIDOPHILUS CAP (BACID) PO ×3 (12:12→20:55)
[2017-06-17] MEDS: amLODIPine 5 MG TAB PO (12:13)
[2017-06-17] MEDS: HEPARIN SOD (PORCINE) 5000 UNITS/ML VIAL SQ (16:33)
[2017-06-17 17:50] LABS: BEDSIDE GLUCOSE 71 MG/DL (70-105)
[2017-06-17] MEDS: CEPACOL LOZENGE PO (18:28)
[2017-06-17] MEDS: ATORVASTATIN 20 MG TAB PO (20:55)
[2017-06-17] MEDS: ASPIRIN 81 MG ENTERIC TAB PO (20:55)
[2017-06-17] MEDS: ACETAMINOPHEN TAB 650MG DOSE (2X325MG) PO (21:03)
[2017-06-18 00:38] LABS: BEDSIDE GLUCOSE 84 MG/DL (70-105)
[2017-06-18] MEDS: MEROPENEM INJ 1 GM in APPROPRIATE DILUENT 1 EA IV ×3 (02:20→16:50)
[2017-06-18] MEDS: NS 1,000 ML IV (02:53)
[2017-06-18] MEDS: HumaLOG INSULIN (NovoLOG) PER UNIT SC ×4 (06:00→18:00)
[2017-06-18 06:02] LABS: BASO % 0.5 % (0.0-1.0); EOS # 0.4 10^3/uL (0.0-0.50); EOS % 4.9 % (0.0-3.0); HEMATOCRIT 27.3 % (42.0-52.0); HEMOGLOBIN 8.9 g/dl (13.5-17.5); IMMATURE GRANULOCYTE % 0.4 % (0-3.0); LYMPH # 0.9 10^3/uL (1.5-4.5); LYMPH % 11.9 % (24.0-44.0); MEAN CORPUSCULAR HEMOGLOBIN 29.6 pg (27.0-33.0); MEAN CORPUSCULAR HGB CONC 32.6 g/dl (32.0-36.5); MEAN CORPUSCULAR VOLUME 90.7 fl (80.0-96.0); MONO # 0.8 10^3/uL (0.0-0.8); MONO % 10.1 % (0.0-5.0); NEUTROPHILS # 5.7 10^3/uL (1.8-7.7); NEUTROPHILS % 72.2 % (36.0-66.0); PLATELET COUNT, AUTOMATED 257 10^3/uL (150-450); RED BLOOD COUNT 3.01 10^6/uL (4.30-6.10); WHITE BLOOD COUNT 7.9 10^3/uL (4.0-10.0)
[2017-06-18 06:20] LABS: ANION GAP 6 MEQ/L (8-16); BLOOD UREA NITROGEN 35 MG/DL (7-18); CALCIUM LEVEL 8.1 MG/DL (8.5-10.1); CARBON DIOXIDE LEVEL 22 MEQ/L (21-32); CHLORIDE LEVEL 114 MEQ/L (98-107); CREATININE FOR GFR 2.02 MG/DL (0.70-1.30); GLOMERULAR FILTRATION RATE 36.6 (>56); GLUCOSE, FASTING 58 MG/DL (70-100); POTASSIUM SERUM 4.2 MEQ/L (3.5-5.1); SODIUM LEVEL 142 MEQ/L (136-145)
[2017-06-18] MEDS: HEPARIN SOD (PORCINE) 5000 UNITS/ML VIAL SQ ×2 (06:42→17:35)
[2017-06-18 08:27] LABS: BEDSIDE GLUCOSE 80 MG/DL (70-105)
[2017-06-18] MEDS: VITAMIN B COMPLEX/VIT C CAP PO (08:42)
[2017-06-18] MEDS: amLODIPine 5 MG TAB PO (08:42)
[2017-06-18] MEDS: LACTOBACILLUS ACIDOPHILUS CAP (BACID) PO ×3 (08:42→21:22)
[2017-06-18 11:30] LABS: VANCOMYCIN LEVEL TROUGH 17.1 UG/ML (10.0-20.0)
[2017-06-18 12:20] LABS: BEDSIDE GLUCOSE 88 MG/DL (70-105)
[2017-06-18] MEDS: VANCOMYCIN HCL 1,000 MG, VIAL MATE ADAPTER 1 EACH in D5W 250 ML IV (17:36)
[2017-06-18 18:15] LABS: BEDSIDE GLUCOSE 128 MG/DL (70-105)
[2017-06-18] MEDS: ATORVASTATIN 20 MG TAB PO (21:22)
[2017-06-18] MEDS: ASPIRIN 81 MG ENTERIC TAB PO (21:22)
[2017-06-18 23:46] LABS: BEDSIDE GLUCOSE 127 MG/DL (70-105)
[2017-06-19] MEDS: MEROPENEM INJ 1 GM in APPROPRIATE DILUENT 1 EA IV ×2 (00:27→09:27)
[2017-06-19 05:51] LABS: BEDSIDE GLUCOSE 118 MG/DL (70-105)
[2017-06-19 06:23] LABS: BASO % 0.4 % (0.0-1.0); EOS # 0.6 10^3/uL (0.0-0.50); EOS % 8.5 % (0.0-3.0); HEMATOCRIT 28.5 % (42.0-52.0); HEMOGLOBIN 9.2 g/dl (13.5-17.5); IMMATURE GRANULOCYTE % 0.6 % (0-3.0); LYMPH # 1.2 10^3/uL (1.5-4.5); LYMPH % 17.8 % (24.0-44.0); MEAN CORPUSCULAR HEMOGLOBIN 29.3 pg (27.0-33.0); MEAN CORPUSCULAR HGB CONC 32.3 g/dl (32.0-36.5); MEAN CORPUSCULAR VOLUME 90.8 fl (80.0-96.0); MONO # 0.7 10^3/uL (0.0-0.8); MONO % 9.7 % (0.0-5.0); NEUTROPHILS # 4.3 10^3/uL (1.8-7.7); PLATELET COUNT, AUTOMATED 299 10^3/uL (150-450); RED BLOOD COUNT 3.14 10^6/uL (4.30-6.10); RED CELL DISTRIBUTION WIDTH 13.1 % (11.5-14.5); WHITE BLOOD COUNT 6.8 10^3/uL (4.0-10.0)
[2017-06-19] MEDS: HumaLOG INSULIN (NovoLOG) PER UNIT SC ×4 (06:38→18:19)
[2017-06-19] MEDS: HEPARIN SOD (PORCINE) 5000 UNITS/ML VIAL SQ ×2 (06:39→18:19)
[2017-06-19 06:47] LABS: ANION GAP 5 MEQ/L (8-16); BLOOD UREA NITROGEN 25 MG/DL (7-18); C REACTIVE PROTEIN QUANTITATIV 7.87 MG/DL (0.00-0.30); CALCIUM LEVEL 8.5 MG/DL (8.5-10.1); CARBON DIOXIDE LEVEL 25 MEQ/L (21-32); CHLORIDE LEVEL 112 MEQ/L (98-107); CREATININE FOR GFR 1.75 MG/DL (0.70-1.30); GLOMERULAR FILTRATION RATE 43.1 (>56); GLUCOSE, FASTING 124 MG/DL (70-100); POTASSIUM SERUM 4.5 MEQ/L (3.5-5.1); SODIUM LEVEL 142 MEQ/L (136-145)
[2017-06-19] MEDS: LACTOBACILLUS ACIDOPHILUS CAP (BACID) PO ×3 (09:27→21:26)
[2017-06-19] MEDS: VITAMIN B COMPLEX/VIT C CAP PO (09:27)
[2017-06-19] MEDS: amLODIPine 5 MG TAB PO (09:28)
[2017-06-19 11:56] LABS: BEDSIDE GLUCOSE 192 MG/DL (70-105)
[2017-06-19] MEDS: AMPICILLIN SOD/SULBACTAM SOD 3 GM in D5W MINI-BAG PLUS 100 ML IV ×2 (12:29→18:19)
[2017-06-19 17:42] LABS: BEDSIDE GLUCOSE 188 MG/DL (70-105)
[2017-06-19] MEDS: ATORVASTATIN 20 MG TAB PO (21:26)
[2017-06-19] MEDS: ASPIRIN 81 MG ENTERIC TAB PO (21:26)
[2017-06-19 23:45] LABS: BEDSIDE GLUCOSE 300 MG/DL (70-105)
[2017-06-20] MEDS: AMPICILLIN SOD/SULBACTAM SOD 3 GM in D5W MINI-BAG PLUS 100 ML IV ×4 (00:10→17:05)
[2017-06-20] MEDS: HumaLOG INSULIN (NovoLOG) PER UNIT SC ×5 (00:10→20:25)
[2017-06-20] MEDS: HEPARIN SOD (PORCINE) 5000 UNITS/ML VIAL SQ ×2 (05:33→17:05)
[2017-06-20 05:52] LABS: BASO % 0.4 % (0.0-1.0); EOS # 0.6 10^3/uL (0.0-0.50); EOS % 8.3 % (0.0-3.0); HEMATOCRIT 27.4 % (42.0-52.0); HEMOGLOBIN 8.9 g/dl (13.5-17.5); IMMATURE GRANULOCYTE % 0.3 % (0-3.0); LYMPH # 1.1 10^3/uL (1.5-4.5); LYMPH % 15.6 % (24.0-44.0); MEAN CORPUSCULAR HEMOGLOBIN 29.4 pg (27.0-33.0); MEAN CORPUSCULAR HGB CONC 32.5 g/dl (32.0-36.5); MEAN CORPUSCULAR VOLUME 90.4 fl (80.0-96.0); MONO # 0.6 10^3/uL (0.0-0.8); MONO % 9.2 % (0.0-5.0); NEUTROPHILS # 4.5 10^3/uL (1.8-7.7); NEUTROPHILS % 66.2 % (36.0-66.0); PLATELET COUNT, AUTOMATED 321 10^3/uL (150-450); RED BLOOD COUNT 3.03 10^6/uL (4.30-6.10); RED CELL DISTRIBUTION WIDTH 12.7 % (11.5-14.5); WHITE BLOOD COUNT 6.8 10^3/uL (4.0-10.0)
[2017-06-20 06:01] LABS: C REACTIVE PROTEIN QUANTITATIV 5.41 MG/DL (0.00-0.30)
[2017-06-20 06:06] LABS: ANION GAP 6 MEQ/L (8-16); BLOOD UREA NITROGEN 22 MG/DL (7-18); CALCIUM LEVEL 8.6 MG/DL (8.5-10.1); CARBON DIOXIDE LEVEL 29 MEQ/L (21-32); CHLORIDE LEVEL 109 MEQ/L (98-107); CREATININE FOR GFR 1.57 MG/DL (0.70-1.30); GLOMERULAR FILTRATION RATE 48.9 (>56); GLUCOSE, FASTING 185 MG/DL (70-100); POTASSIUM SERUM 4.2 MEQ/L (3.5-5.1); SODIUM LEVEL 144 MEQ/L (136-145)
[2017-06-20] MEDS: VITAMIN B COMPLEX/VIT C CAP PO (09:04)
[2017-06-20] MEDS: LACTOBACILLUS ACIDOPHILUS CAP (BACID) PO ×3 (09:04→20:31)
[2017-06-20] MEDS: amLODIPine 5 MG TAB PO (09:05)
[2017-06-20] MEDS ORDERED: GLUCOSE 4 GM CHEW TABLET PO (09:45)
[2017-06-20] MEDS ORDERED: GLUCAGON FOR INJ 1 MG VIAL (J1610) SC (09:45)
[2017-06-20] MEDS ORDERED: DEXTROSE 50% 50 ML SYRINGE IV (09:45)
[2017-06-20 13:16] LABS: BEDSIDE GLUCOSE 202 MG/DL (70-105)
[2017-06-20 16:47] LABS: BEDSIDE GLUCOSE 191 MG/DL (70-105)
[2017-06-20] MEDS: ASPIRIN 81 MG ENTERIC TAB PO (20:31)
[2017-06-20] MEDS: ATORVASTATIN 20 MG TAB PO (20:31)
[2017-06-20 20:35] LABS: BEDSIDE GLUCOSE 237 MG/DL (70-105)
[2017-06-21] MEDS: AMPICILLIN SOD/SULBACTAM SOD 3 GM in D5W MINI-BAG PLUS 100 ML IV ×5 (00:35→23:47)
[2017-06-21] MEDS: HEPARIN SOD (PORCINE) 5000 UNITS/ML VIAL SQ ×2 (05:54→18:37)
[2017-06-21 06:18] LABS: BASO # 0.1 10^3/uL (0.0-0.2); BASO % 0.8 % (0.0-1.0); EOS # 0.5 10^3/uL (0.0-0.50); EOS % 8.3 % (0.0-3.0); HEMATOCRIT 30.7 % (42.0-52.0); HEMOGLOBIN 10.1 g/dl (13.5-17.5); IMMATURE GRANULOCYTE % 0.5 % (0-3.0); LYMPH # 1.1 10^3/uL (1.5-4.5); LYMPH % 17.1 % (24.0-44.0); MEAN CORPUSCULAR HEMOGLOBIN 29.5 pg (27.0-33.0); MEAN CORPUSCULAR HGB CONC 32.9 g/dl (32.0-36.5); MEAN CORPUSCULAR VOLUME 89.8 fl (80.0-96.0); MONO # 0.4 10^3/uL (0.0-0.8); MONO % 6.6 % (0.0-5.0); NEUTROPHILS # 4.4 10^3/uL (1.8-7.7); NEUTROPHILS % 66.7 % (36.0-66.0); PLATELET COUNT, AUTOMATED 333 10^3/uL (150-450); RED BLOOD COUNT 3.42 10^6/uL (4.30-6.10); RED CELL DISTRIBUTION WIDTH 12.7 % (11.5-14.5); WHITE BLOOD COUNT 6.5 10^3/uL (4.0-10.0)
[2017-06-21 06:42] LABS: ANION GAP 4 MEQ/L (8-16); BLOOD UREA NITROGEN 21 MG/DL (7-18); C REACTIVE PROTEIN QUANTITATIV 3.28 MG/DL (0.00-0.30); CALCIUM LEVEL 8.9 MG/DL (8.5-10.1); CARBON DIOXIDE LEVEL 31 MEQ/L (21-32); CHLORIDE LEVEL 107 MEQ/L (98-107); CREATININE FOR GFR 1.43 MG/DL (0.70-1.30); GLOMERULAR FILTRATION RATE 54.5 (>56); GLUCOSE, FASTING 205 MG/DL (70-100); POTASSIUM SERUM 4.3 MEQ/L (3.5-5.1); SODIUM LEVEL 142 MEQ/L (136-145)
[2017-06-21] MEDS: amLODIPine 5 MG TAB PO (08:09)
[2017-06-21] MEDS: LACTOBACILLUS ACIDOPHILUS CAP (BACID) PO ×3 (08:09→20:52)
[2017-06-21] MEDS: VITAMIN B COMPLEX/VIT C CAP PO (08:09)
[2017-06-21] MEDS: HumaLOG INSULIN (NovoLOG) PER UNIT SC ×4 (08:09→20:49)
[2017-06-21 11:54] LABS: BEDSIDE GLUCOSE 222 MG/DL (70-105)
[2017-06-21] MEDS ORDERED: ISOVUE-300 61% 50ML VIAL (Q9967) As Ordered (12:19)
[2017-06-21 16:44] LABS: BEDSIDE GLUCOSE 123 MG/DL (70-105)
[2017-06-21] MEDS: SODIUM CHLORIDE 0.9% INJ 10 ML SYR IV (18:00)
[2017-06-21] MEDS: ATORVASTATIN 20 MG TAB PO (20:52)
[2017-06-21] MEDS: ASPIRIN 81 MG ENTERIC TAB PO (20:52)
[2017-06-21 20:56] LABS: BEDSIDE GLUCOSE 200 MG/DL (70-105)
[2017-06-22] MEDS: AMPICILLIN SOD/SULBACTAM SOD 3 GM in D5W MINI-BAG PLUS 100 ML IV ×2 (05:37→11:54)
[2017-06-22 05:53] LABS: BASO % 0.5 % (0.0-1.0); EOS # 0.6 10^3/uL (0.0-0.50); EOS % 7.3 % (0.0-3.0); HEMATOCRIT 29.9 % (42.0-52.0); HEMOGLOBIN 9.8 g/dl (13.5-17.5); IMMATURE GRANULOCYTE % 0.5 % (0-3.0); LYMPH # 1.6 10^3/uL (1.5-4.5); LYMPH % 21.2 % (24.0-44.0); MEAN CORPUSCULAR HEMOGLOBIN 29.6 pg (27.0-33.0); MEAN CORPUSCULAR HGB CONC 32.8 g/dl (32.0-36.5); MEAN CORPUSCULAR VOLUME 90.3 fl (80.0-96.0); MONO # 0.5 10^3/uL (0.0-0.8); MONO % 6.5 % (0.0-5.0); NEUTROPHILS # 4.8 10^3/uL (1.8-7.7); PLATELET COUNT, AUTOMATED 317 10^3/uL (150-450); RED BLOOD COUNT 3.31 10^6/uL (4.30-6.10); RED CELL DISTRIBUTION WIDTH 12.6 % (11.5-14.5); WHITE BLOOD COUNT 7.5 10^3/uL (4.0-10.0)
[2017-06-22] MEDS: SODIUM CHLORIDE 0.9% INJ 10 ML SYR IV ×2 (06:00→11:55)
[2017-06-22 06:14] LABS: ANION GAP 4 MEQ/L (8-16); BLOOD UREA NITROGEN 24 MG/DL (7-18); C REACTIVE PROTEIN QUANTITATIV 1.99 MG/DL (0.00-0.30); CALCIUM LEVEL 8.1 MG/DL (8.5-10.1); CARBON DIOXIDE LEVEL 30 MEQ/L (21-32); CHLORIDE LEVEL 107 MEQ/L (98-107); CREATININE FOR GFR 1.56 MG/DL (0.70-1.30); GLOMERULAR FILTRATION RATE 49.3 (>56); GLUCOSE, FASTING 303 MG/DL (70-100); POTASSIUM SERUM 4.4 MEQ/L (3.5-5.1); SODIUM LEVEL 141 MEQ/L (136-145)
[2017-06-22] MEDS: HEPARIN SOD (PORCINE) 5000 UNITS/ML VIAL SQ (06:27)
[2017-06-22] MEDS: amLODIPine 5 MG TAB PO (07:54)
[2017-06-22] MEDS: VITAMIN B COMPLEX/VIT C CAP PO (07:54)
[2017-06-22] MEDS: LACTOBACILLUS ACIDOPHILUS CAP (BACID) PO (07:54)
[2017-06-22] MEDS: HumaLOG INSULIN (NovoLOG) PER UNIT SC ×2 (07:54→11:55)
[2017-06-22 11:47] LABS: BEDSIDE GLUCOSE 216 MG/DL (70-105)
== END 2017-06-22 15:08 | disposition home health service (06) | DRG 314 ==
LOC: M ED 10:55 → M ED INP 15:03 → M MSPAV 16:17
PROC: 0Y6Q0Z3 Detachment at Left 1st Toe, Low, Open Approach (ICD-10-PCS; 2017-06-17 09:00)
PROC: 02HV33Z Insertion of Infusion Device into Superior Vena Cava, Percutaneous Approach (ICD-10-PCS; principal; 2017-06-17 09:46)
DX: M86.472 Chronic osteomyelitis with draining sinus, left ankle and foot (principal); E11.40 Type 2 diabetes mellitus with diabetic neuropathy, unspecified; N17.9 Acute kidney failure, unspecified; E11.319 Type 2 diabetes mellitus with unspecified diabetic retinopathy without macular edema; N18.3 Chronic kidney disease, stage 3 (moderate); D63.1 Anemia in chronic kidney disease; B95.62 Methicillin resistant Staphylococcus aureus infection as the cause of diseases classified elsewhere; B97.10 Unspecified enterovirus as the cause of diseases classified elsewhere; I25.10 Atherosclerotic heart disease of native coronary artery without angina pectoris; E78.5 Hyperlipidemia, unspecified; I12.9 Hypertensive chronic kidney disease with stage 1 through stage 4 chronic kidney disease, or unspecified chronic kidney disease; Z79.82 Long term (current) use of aspirin; Z79.899 Other long term (current) drug therapy; E66.9 Obesity, unspecified

== ENCOUNTER → 2017-06-26 | Outpatient (REF) | payer OTHER ==
[2017-06-26 10:58] LABS: BASO # 0.1 10^3/uL (0.0-0.2); BASO % 0.5 % (0.0-1.0); EOS # 0.5 10^3/uL (0.0-0.50); EOS % 5.9 % (0.0-3.0); HEMATOCRIT 29.4 % (42.0-52.0); HEMOGLOBIN 9.6 g/dl (13.5-17.5); IMMATURE GRANULOCYTE % 0.8 % (0-3.0); LYMPH # 1.5 10^3/uL (1.5-4.5); LYMPH % 16.2 % (24.0-44.0); MEAN CORPUSCULAR HEMOGLOBIN 29.3 pg (27.0-33.0); MEAN CORPUSCULAR HGB CONC 32.7 g/dl (32.0-36.5); MEAN CORPUSCULAR VOLUME 89.6 fl (80.0-96.0); MONO # 0.5 10^3/uL (0.0-0.8); MONO % 5.3 % (0.0-5.0); NEUTROPHILS # 6.5 10^3/uL (1.8-7.7); NEUTROPHILS % 71.3 % (36.0-66.0); PLATELET COUNT, AUTOMATED 284 10^3/uL (150-450); RED BLOOD COUNT 3.28 10^6/uL (4.30-6.10); WHITE BLOOD COUNT 9.2 10^3/uL (4.0-10.0)
[2017-06-26 11:17] LABS: ANION GAP 6 MEQ/L (8-16); BLOOD UREA NITROGEN 19 MG/DL (7-18); C REACTIVE PROTEIN QUANTITATIV 2.79 MG/DL (0.00-0.30); CALCIUM LEVEL 8.2 MG/DL (8.5-10.1); CARBON DIOXIDE LEVEL 27 MEQ/L (21-32); CHLORIDE LEVEL 106 MEQ/L (98-107); CREATININE FOR GFR 1.62 MG/DL (0.70-1.30); GLOMERULAR FILTRATION RATE 47.2 (>56); GLUCOSE, FASTING 262 MG/DL (70-100); POTASSIUM SERUM 3.9 MEQ/L (3.5-5.1); SODIUM LEVEL 139 MEQ/L (136-145)
[2017-06-26 11:24] LABS: ERYTHROCYTE SEDIMENTATION RATE 127 mm/hr (0-20)
== END ==
LOC: M LAB REF 10:51
DX: M86.8X7 Other osteomyelitis, ankle and foot (principal); E11.621 Type 2 diabetes mellitus with foot ulcer

== ENCOUNTER → 2017-07-03 | Outpatient (REF) | payer OTHER ==
[2017-07-03 11:42] LABS: BASO # 0.1 10^3/uL (0.0-0.2); BASO % 0.9 % (0.0-1.0); EOS # 0.6 10^3/uL (0.0-0.50); HEMATOCRIT 30.3 % (42.0-52.0); HEMOGLOBIN 10.1 g/dl (13.5-17.5); IMMATURE GRANULOCYTE % 0.4 % (0-3.0); LYMPH # 1.3 10^3/uL (1.5-4.5); LYMPH % 16.8 % (24.0-44.0); MEAN CORPUSCULAR HEMOGLOBIN 29.7 pg (27.0-33.0); MEAN CORPUSCULAR HGB CONC 33.3 g/dl (32.0-36.5); MEAN CORPUSCULAR VOLUME 89.1 fl (80.0-96.0); MONO # 0.5 10^3/uL (0.0-0.8); MONO % 6.9 % (0.0-5.0); NEUTROPHILS # 5.2 10^3/uL (1.8-7.7); PLATELET COUNT, AUTOMATED 240 10^3/uL (150-450); RED CELL DISTRIBUTION WIDTH 13.5 % (11.5-14.5); WHITE BLOOD COUNT 7.7 10^3/uL (4.0-10.0)
[2017-07-03 11:51] LABS: ANION GAP 7 MEQ/L (8-16); BLOOD UREA NITROGEN 27 MG/DL (7-18); C REACTIVE PROTEIN QUANTITATIV 0.78 MG/DL (0.00-0.30); CALCIUM LEVEL 8.9 MG/DL (8.5-10.1); CARBON DIOXIDE LEVEL 26 MEQ/L (21-32); CHLORIDE LEVEL 106 MEQ/L (98-107); GLOMERULAR FILTRATION RATE 44.6 (>56); GLUCOSE, FASTING 209 MG/DL (70-100); SODIUM LEVEL 139 MEQ/L (136-145)
[2017-07-03 12:14] LABS: ERYTHROCYTE SEDIMENTATION RATE 107 mm/hr (0-20)
== END ==
LOC: M LAB REF 11:20
DX: M86.8X7 Other osteomyelitis, ankle and foot (principal); E11.621 Type 2 diabetes mellitus with foot ulcer

== ENCOUNTER → 2017-07-10 | Outpatient (REF) | payer OTHER ==
[2017-07-10 12:06] LABS: BASO # 0.1 10^3/uL (0.0-0.2); BASO % 0.9 % (0.0-1.0); EOS # 0.8 10^3/uL (0.0-0.50); EOS % 12.2 % (0.0-3.0); HEMATOCRIT 33.1 % (42.0-52.0); HEMOGLOBIN 10.9 g/dl (13.5-17.5); IMMATURE GRANULOCYTE % 0.3 % (0-3.0); LYMPH # 1.3 10^3/uL (1.5-4.5); LYMPH % 19.8 % (24.0-44.0); MEAN CORPUSCULAR HEMOGLOBIN 29.6 pg (27.0-33.0); MEAN CORPUSCULAR HGB CONC 32.9 g/dl (32.0-36.5); MEAN CORPUSCULAR VOLUME 89.9 fl (80.0-96.0); MONO # 0.5 10^3/uL (0.0-0.8); MONO % 7.2 % (0.0-5.0); NEUTROPHILS % 59.6 % (36.0-66.0); PLATELET COUNT, AUTOMATED 216 10^3/uL (150-450); RED BLOOD COUNT 3.68 10^6/uL (4.30-6.10); RED CELL DISTRIBUTION WIDTH 14.2 % (11.5-14.5); WHITE BLOOD COUNT 6.7 10^3/uL (4.0-10.0)
[2017-07-10 12:32] LABS: ERYTHROCYTE SEDIMENTATION RATE 104 mm/hr (0-20)
[2017-07-10 12:45] LABS: ANION GAP 7 MEQ/L (8-16); BLOOD UREA NITROGEN 23 MG/DL (7-18); C REACTIVE PROTEIN QUANTITATIV 0.32 MG/DL (0.00-0.30); CALCIUM LEVEL 8.9 MG/DL (8.5-10.1); CARBON DIOXIDE LEVEL 26 MEQ/L (21-32); CHLORIDE LEVEL 106 MEQ/L (98-107); CREATININE FOR GFR 1.68 MG/DL (0.70-1.30); GLOMERULAR FILTRATION RATE 45.2 (>56); GLUCOSE, FASTING 237 MG/DL (70-100); SODIUM LEVEL 139 MEQ/L (136-145)
== END ==
LOC: M LAB REF 11:47
DX: M86.8X7 Other osteomyelitis, ankle and foot (principal); E11.621 Type 2 diabetes mellitus with foot ulcer; L97.909 Non-pressure chronic ulcer of unspecified part of unspecified lower leg with unspecified severity
CPT/HCPCS: 80048

== ENCOUNTER → 2017-07-26 | Outpatient (REF) | payer OTHER ==
[2017-07-26 18:43] LABS: BASO # 0.1 10^3/uL (0.0-0.2); EOS # 0.7 10^3/uL (0.0-0.50); EOS % 9.7 % (0.0-3.0); HEMATOCRIT 35.1 % (42.0-52.0); HEMOGLOBIN 11.6 g/dl (13.5-17.5); IMMATURE GRANULOCYTE % 0.1 % (0-3.0); LYMPH # 1.3 10^3/uL (1.5-4.5); LYMPH % 17.9 % (24.0-44.0); MEAN CORPUSCULAR HEMOGLOBIN 30.2 pg (27.0-33.0); MEAN CORPUSCULAR VOLUME 91.4 fl (80.0-96.0); MONO # 0.5 10^3/uL (0.0-0.8); MONO % 6.8 % (0.0-5.0); NEUTROPHILS # 4.7 10^3/uL (1.8-7.7); NEUTROPHILS % 64.5 % (36.0-66.0); PLATELET COUNT, AUTOMATED 199 10^3/uL (150-450); RED BLOOD COUNT 3.84 10^6/uL (4.30-6.10); RED CELL DISTRIBUTION WIDTH 14.4 % (11.5-14.5); WHITE BLOOD COUNT 7.3 10^3/uL (4.0-10.0)
[2017-07-26 19:02] LABS: ANION GAP 6 MEQ/L (8-16); BLOOD UREA NITROGEN 38 MG/DL (7-18); C REACTIVE PROTEIN QUANTITATIV 0.38 MG/DL (0.00-0.30); CALCIUM LEVEL 9.3 MG/DL (8.5-10.1); CARBON DIOXIDE LEVEL 27 MEQ/L (21-32); CHLORIDE LEVEL 106 MEQ/L (98-107); CREATININE FOR GFR 1.84 MG/DL (0.70-1.30); GLOMERULAR FILTRATION RATE 40.7 (>56); GLUCOSE, FASTING 209 MG/DL (70-100); POTASSIUM SERUM 5.1 MEQ/L (3.5-5.1); SODIUM LEVEL 139 MEQ/L (136-145)
[2017-07-26 19:27] LABS: ERYTHROCYTE SEDIMENTATION RATE 71 mm/hr (0-20)
== END ==
LOC: M LABDRAW1 17:59
DX: M86.9 Osteomyelitis, unspecified (principal)

== ENCOUNTER → 2017-11-07 | Outpatient (REF) | payer OTHER ==
[2017-11-07 19:39] LABS: HEMATOCRIT 38.3 % (42.0-52.0); HEMOGLOBIN 12.6 g/dl (13.5-17.5); MEAN CORPUSCULAR HEMOGLOBIN 29.6 pg (27.0-33.0); MEAN CORPUSCULAR HGB CONC 32.9 g/dl (32.0-36.5); MEAN CORPUSCULAR VOLUME 89.9 fl (80.0-96.0); PLATELET COUNT, AUTOMATED 198 10^3/uL (150-450); RED BLOOD COUNT 4.26 10^6/uL (4.30-6.10); RED CELL DISTRIBUTION WIDTH 13.2 % (11.5-14.5); WHITE BLOOD COUNT 6.7 10^3/uL (4.0-10.0)
[2017-11-07 19:56] LABS: ANION GAP 9 MEQ/L (8-16); BLOOD UREA NITROGEN 44 MG/DL (7-18); CALCIUM LEVEL 9.8 MG/DL (8.5-10.1); CARBON DIOXIDE LEVEL 25 MEQ/L (21-32); CHLORIDE LEVEL 105 MEQ/L (98-107); CREATININE FOR GFR 1.98 MG/DL (0.70-1.30); GLOMERULAR FILTRATION RATE 37.3 (>56); GLUCOSE, FASTING 204 MG/DL (70-100); POTASSIUM SERUM 4.3 MEQ/L (3.5-5.1); SODIUM LEVEL 139 MEQ/L (136-145)
[2017-11-07 19:58] LABS: ESTIMATED AVERAGE GLUCOSE 171 MG/DL (60-110); HEMOGLOBIN A1c 7.6 %
== END ==
LOC: M SFHCADAM 15:17
DX: N18.9 Chronic kidney disease, unspecified (principal); E11.22 Type 2 diabetes mellitus with diabetic chronic kidney disease; D63.1 Anemia in chronic kidney disease

== ENCOUNTER → 2018-04-23 | Outpatient (REF) | payer OTHER ==
[~2018-04-23] MED LIST changes: +AMLO5TAB6 PO; +GLIM2TAB PO; +RISATAB3 PO; +VALS1TAB49 PO
[2018-04-23 12:36] LABS: HEMATOCRIT 40.4 % (42.0-52.0); HEMOGLOBIN 13.2 g/dl (13.5-17.5); MEAN CORPUSCULAR HEMOGLOBIN 29.7 pg (27.0-33.0); MEAN CORPUSCULAR HGB CONC 32.7 g/dl (32.0-36.5); MEAN CORPUSCULAR VOLUME 90.8 fl (80.0-96.0); PLATELET COUNT, AUTOMATED 202 10^3/uL (150-450); RED BLOOD COUNT 4.45 10^6/uL (4.30-6.10); WHITE BLOOD COUNT 7.3 10^3/uL (4.0-10.0)
[2018-04-23 12:52] LABS: BILIRUBIN,TOTAL 0.9 MG/DL (0.2-1.0); CALCIUM LEVEL 8.9 MG/DL (8.5-10.1); CHOLESTEROL RISK RATIO 5.058 (<5); CREATININE FOR GFR 1.89 MG/DL (0.70-1.30); GLOMERULAR FILTRATION RATE 39.3 (>56); TOTAL PROTEIN 7.7 GM/DL (6.4-8.2)
[2018-04-23 12:59] LABS: HEMOGLOBIN A1c 8.2 %
== END ==
LOC: M SFHCADAM 08:49
PROVIDERS: ATTEND Family Medicine
DX: N18.9 Chronic kidney disease, unspecified (principal); E11.22 Type 2 diabetes mellitus with diabetic chronic kidney disease; E78.2 Mixed hyperlipidemia; D63.1 Anemia in chronic kidney disease

== ENCOUNTER 2018-06-21 06:50 | Day surgery (SDC) | payer OTHER ==
[~2018-06-21] VITALS: Ht 177.8 cm; Wt 103.9 kg
[~2018-06-21 06:50] MED LIST changes: -ACET50TA PO; -ASPI1TAB PO; +ASPI81TA26 PO; +BALANCED SALT IRRIGATION SOLUTION 500ML BAG (FOR OR EYE MACHINE) As Ordered ONE; +CEFUROXIME 1MG/0.1ML INTRACAMERAL INJ As Ordered ONE; +CHLO125TA PO; +CINN500C15 PO; +CULTCAP2 PO; +DUOVISC (0.50ML VISCOAT/0.55ML PROVISC) OPHTH KIT As Ordered ONE; +LIDOCAINE 0.75%/EPINEPHRINE 0.025% IN BSS 1ML SYR INTRACAMERAL (OR ONLY) As Ordered ONE; +LOSA50TA88 PO; +MAPA500T17 PO; +POVIDONE-IODINE 5% OPHTH PREP SOL 30ML As Ordered ONE; -VALS1TAB47; -VALS1TAB47 PO; +VALS1TAB67; +VALS1TAB67 PO; -VANC125C2 PO; +VANC125C3 PO; +VITATAB73 PO
[2018-06-21] MEDS ORDERED: PHENYLEPHRINE 2.5% OPHTH SOL 2ML OS ONE (07:00)
[2018-06-21] MEDS ORDERED: PROPARACAINE 0.5% OPHTH SOL 15ML OS ONE (07:00)
[2018-06-21] MEDS ORDERED: TROPICAMIDE 1% OPHTH SOLN 2ML OS ONE (07:00)
[2018-06-21] MEDS ORDERED: OFLOXACIN 0.3 % (OCUFLOX) OPTH SOL 5ML OS ONE (07:00)
[2018-06-21] MEDS ORDERED: MIDAZOLAM INJ 2 MG/2 ML VIAL (J2250) As Ordered ONE ×2 (07:14→08:55)
[2018-06-21 09:25] VITALS: BP 115/66
--- NOTE | 2018-06-22 15:52 | RO ---
DATE OF PROCEDURE: 06/21/2018 PREOPERATIVE DIAGNOSIS: 1. Visually significant nuclear sclerotic cataract left eye. POSTOPERATIVE DIAGNOSIS: 1. Visually significant nuclear sclerotic cataract left eye. PROCEDURE: 1. Cataract extraction with use of phacoemulsification and placement of intraocular lens, AU00T0, 30.0 D, left eye. SURGEON: Jose J Espino DO [employer] ETL DEVELOPER: None. ANESTHESIA: Local with monitored anesthesia care (MAC). COMPLICATIONS: None. POSTOPERATIVE CONDITION: Stable. INDICATIONS FOR SURGERY: 1. Blurred vision affecting patients activities of daily living. DESCRIPTION OF PROCEDURE: The patient was seen in the preoperative area and properly identified. The correct operative eye was identified and marked. The patient received topical anesthetic, antibiotics, and topical dilating drops. The patient was then transferred to the operating room. The correct side was re-identified, and a time-out was performed. The eye was prepped and draped in a sterile fashion. The eyelids were isolated with Tegaderm tape, and the lids were held open with an adjustable speculum. A 1.0 mm paracentesis incision was made. Intraocular preservative-free Shugarcaine was then injected into the anterior chamber. Viscoelastic was then injected into the anterior chamber through the paracentesis. Using a 2.4 mm sharp-tipped keratome, the anterior chamber was entered via a temporal clear cornea incision. A continuous curvilinear capsulorrhexis was created with Utrata forceps. Hydrodissection was performed with balanced salt solution (BSS) on a blunt cannula until the nucleus was able to rotate freely. The crystalline lens was phacoemulsified and aspirated. Irrigation/aspiration was used to remove the cortical material. Cohesive viscoelastic was placed into the capsular bag to deepen it. The implant was placed into the capsular bag and allowed to unfold. Placement was confirmed by visualizing the anterior capsulorrhexis. Irrigation/aspiration was used to remove the viscoelastic. The clear corneal incision was hydrated with BSS on a blunt cannula. The lens was well positioned. The incisions were then tested for leaks and found to be negative. The eye was then palpated for appropriate pressure and adjusted accordingly with BSS. The eyelid speculum was then carefully removed. A shield was placed over the eye. The patient tolerated the procedure well and was discharged to the recovery unit in a stable condition.
== END 2018-06-21 09:38 | disposition home or self-care (01) ==
LOC: M SDC 06:50
PROVIDERS: ATTEND Ophthalmology
DX: H25.12 Age-related nuclear cataract, left eye (principal); E78.5 Hyperlipidemia, unspecified; I10 Essential (primary) hypertension; E11.9 Type 2 diabetes mellitus without complications; Z88.2 Allergy status to sulfonamides; Z79.82 Long term (current) use of aspirin; Z79.899 Other long term (current) drug therapy
CPT/HCPCS: 66984; J2250

== ENCOUNTER → 2018-07-31 | Outpatient (REF) | payer OTHER ==
[~2018-07-31] MED LIST changes: -BALANCED SALT IRRIGATION SOLUTION 500ML BAG (FOR OR EYE MACHINE) As Ordered ONE; -CEFUROXIME 1MG/0.1ML INTRACAMERAL INJ As Ordered ONE; -DUOVISC (0.50ML VISCOAT/0.55ML PROVISC) OPHTH KIT As Ordered ONE; -LIDOCAINE 0.75%/EPINEPHRINE 0.025% IN BSS 1ML SYR INTRACAMERAL (OR ONLY) As Ordered ONE; -POVIDONE-IODINE 5% OPHTH PREP SOL 30ML As Ordered ONE
[2018-07-31 14:06] LABS: CREATININE FOR GFR 2.02 MG/DL (0.70-1.30); GLOMERULAR FILTRATION RATE 36.4 (>56); POTASSIUM SERUM 4.2 MEQ/L (3.5-5.1)
[2018-07-31 15:05] LABS: HEMOGLOBIN A1c 7.6 %
== END ==
LOC: M SFHCADAM 09:16
PROVIDERS: ATTEND Family Medicine
DX: E11.22 Type 2 diabetes mellitus with diabetic chronic kidney disease (principal)

== ENCOUNTER 2018-08-02 07:48 | Day surgery (SDC) | payer OTHER ==
[~2018-08-02] VITALS: Ht 177.8 cm; Wt 103.0 kg
[~2018-08-02 07:48] MED LIST changes: +BALANCED SALT IRRIGATION SOLUTION 500ML BAG (FOR OR EYE MACHINE) As Ordered ONE; +CEFUROXIME 1MG/0.1ML INTRACAMERAL INJ As Ordered ONE; +DUOVISC (0.50ML VISCOAT/0.55ML PROVISC) OPHTH KIT As Ordered ONE; +LIDOCAINE 0.75%/EPINEPHRINE 0.025% IN BSS 1ML SYR INTRACAMERAL (OR ONLY) As Ordered ONE; +MIDAZOLAM INJ 2 MG/2 ML VIAL (J2250) As Ordered ONE; +OFLOXACIN 0.3 % (OCUFLOX) OPTH SOL 5ML OD ONE; +PHENYLEPHRINE 2.5% OPHTH SOL 2ML OD ONE; +POVIDONE-IODINE 5% OPHTH PREP SOL 30ML As Ordered ONE; +PROPARACAINE 0.5% OPHTH SOL 15ML OD ONE; +TROPICAMIDE 1% OPHTH SOLN 2ML OD ONE; +fentaNYL 100 MCG/2 ML INJECTION (J3010) As Ordered ONE
[2018-08-02 10:15] VITALS: BP 128/73
--- NOTE | 2018-08-03 08:01 | RO ---
DATE OF PROCEDURE: 08/02/2018 PREOPERATIVE DIAGNOSIS: 1. Visually significant nuclear sclerotic cataract right eye. POSTOPERATIVE DIAGNOSIS: 1. Visually significant nuclear sclerotic cataract right eye. PROCEDURE: 1. Cataract extraction with use of phacoemulsification and placement of intraocular lens, AUT00 29.5 D, right eye. SURGEON: Jose J Espino DO HE[employer]CARE CORPORATE ACCOUNT DIRECTOR: None. ANESTHESIA: Local with monitored anesthesia care (MAC). COMPLICATIONS: None. POSTOPERATIVE CONDITION: Stable. INDICATIONS FOR SURGERY: 1. Blurred vision affecting patients activities of daily living. DESCRIPTION OF PROCEDURE: The patient was seen in the preoperative area and properly identified. The correct operative eye was identified and marked. The patient received topical anesthetic, antibiotics, and topical dilating drops. The patient was then transferred to the operating room. The correct side was re-identified, and a time-out was performed. The eye was prepped and draped in a sterile fashion. The eyelids were isolated with Tegaderm tape, and the lids were held open with an adjustable speculum. A 1.0 mm paracentesis incision was made. Intraocular preservative-free Shugarcaine was then injected into the anterior chamber. Viscoelastic was then injected into the anterior chamber through the paracentesis. Using a 2.4 mm sharp-tipped keratome, the anterior chamber was entered via a temporal clear cornea incision. A continuous curvilinear capsulorrhexis was created with Utrata forceps. Hydrodissection was performed with balanced salt solution (BSS) on a blunt cannula until the nucleus was able to rotate freely. The crystalline lens was phacoemulsified and aspirated. Irrigation/aspiration was used to remove the cortical material. Cohesive viscoelastic was placed into the capsular bag to deepen it. The implant was placed into the capsular bag and allowed to unfold. Placement was confirmed by visualizing the anterior capsulorrhexis. Irrigation/aspiration was used to remove the viscoelastic. The clear corneal incision was hydrated with BSS on a blunt cannula. The lens was well positioned. The incisions were then tested for leaks and found to be negative. The eye was then palpated for appropriate pressure and adjusted accordingly with BSS. The eyelid speculum was then carefully removed. A shield was placed over the eye. The patient tolerated the procedure well and was discharged to the recovery unit in a stable condition.
== END 2018-08-02 10:25 | disposition home or self-care (01) ==
LOC: M SDC 07:48
PROVIDERS: ATTEND Ophthalmology
DX: H25.11 Age-related nuclear cataract, right eye (principal); I10 Essential (primary) hypertension; E78.5 Hyperlipidemia, unspecified; Z79.899 Other long term (current) drug therapy; Z88.2 Allergy status to sulfonamides; Z79.82 Long term (current) use of aspirin
CPT/HCPCS: 66984; J2250; J3010

== ENCOUNTER → 2018-12-06 | Outpatient (CLI) | payer OTHER ==
[~2018-12-06] MED LIST changes: -BALANCED SALT IRRIGATION SOLUTION 500ML BAG (FOR OR EYE MACHINE) As Ordered ONE; -CEFUROXIME 1MG/0.1ML INTRACAMERAL INJ As Ordered ONE; -DOXY100T16 PO; +DOXY100T27 PO; -DUOVISC (0.50ML VISCOAT/0.55ML PROVISC) OPHTH KIT As Ordered ONE; -GLIM1TAB; -GLIM1TAB PO; +GLIM1TAB2; +GLIM1TAB2 PO; -GLIM2TAB PO; +GLIM2TAB2 PO; -LIDOCAINE 0.75%/EPINEPHRINE 0.025% IN BSS 1ML SYR INTRACAMERAL (OR ONLY) As Ordered ONE; -MIDAZOLAM INJ 2 MG/2 ML VIAL (J2250) As Ordered ONE; -OFLOXACIN 0.3 % (OCUFLOX) OPTH SOL 5ML OD ONE; -PHENYLEPHRINE 2.5% OPHTH SOL 2ML OD ONE; -POVIDONE-IODINE 5% OPHTH PREP SOL 30ML As Ordered ONE; -PROPARACAINE 0.5% OPHTH SOL 15ML OD ONE; -TROPICAMIDE 1% OPHTH SOLN 2ML OD ONE; -fentaNYL 100 MCG/2 ML INJECTION (J3010) As Ordered ONE
[2018-12-06 14:59] LABS: CREATININE FOR GFR 1.85 MG/DL (0.70-1.30); GLOMERULAR FILTRATION RATE 40.2 (>56); POTASSIUM SERUM 4.5 MEQ/L (3.5-5.1)
== END ==
LOC: M LAB 14:05
PROVIDERS: ATTEND Family Medicine
DX: Z01.818 Encounter for other preprocedural examination (principal)

== ENCOUNTER → 2019-02-28 | Outpatient (REF) | payer OTHER ==
[~2019-02-28] MED LIST changes: -VALS1TAB49 PO; +VALS40TA9 PO
[2019-02-28 13:15] LABS: HEMATOCRIT 40.7 % (42.0-52.0); HEMOGLOBIN 13.7 g/dl (13.5-17.5); MEAN CORPUSCULAR HEMOGLOBIN 30.8 pg (27.0-33.0); MEAN CORPUSCULAR HGB CONC 33.7 g/dl (32.0-36.5); MEAN CORPUSCULAR VOLUME 91.5 fl (80.0-96.0); PLATELET COUNT, AUTOMATED 218 10^3/uL (150-450); RED BLOOD COUNT 4.45 10^6/uL (4.30-6.10); WHITE BLOOD COUNT 7.6 10^3/uL (4.0-10.0)
[2019-02-28 13:50] LABS: HEMOGLOBIN A1c 7.7 %
[2019-02-28 13:59] LABS: ALBUMIN 4.1 GM/DL (3.2-5.2); BILIRUBIN,TOTAL 0.8 MG/DL (0.2-1.0); CALCIUM LEVEL 9.3 MG/DL (8.5-10.1); CHOLESTEROL RISK RATIO 4.441 (<5); CREATININE FOR GFR 1.92 MG/DL (0.70-1.30); GLOMERULAR FILTRATION RATE 38.5 (>56); POTASSIUM SERUM 5.1 MEQ/L (3.5-5.1); TOTAL PROTEIN 7.7 GM/DL (6.4-8.2)
== END ==
LOC: M SFHCADAM 09:47
PROVIDERS: ATTEND Family Medicine
DX: E78.2 Mixed hyperlipidemia (principal); D63.1 Anemia in chronic kidney disease; E11.22 Type 2 diabetes mellitus with diabetic chronic kidney disease

== ENCOUNTER → 2019-06-13 | Outpatient (REF) | payer BC ==
[~2019-06-13] MED LIST changes: -GLIM1TAB2; -GLIM1TAB2 PO; +GLIM1TAB4; +GLIM1TAB4 PO; -GLIM2TAB2 PO; +GLIM2TAB4 PO
== END ==
LOC: M LAB REF 16:28
PROVIDERS: ATTEND Podiatrist
DX: M79.671 Pain in right foot (principal)

== ENCOUNTER → 2019-09-06 | Outpatient (REF) | payer BC ==
[~2019-09-06] MED LIST changes: +AMLO1TAB24 PO; -AMLO5TAB6 PO; -ASPI81TA85 PO; +ASPI81TA86 PO
[2019-09-06 13:35] LABS: CALCIUM LEVEL 9.3 MG/DL (8.5-10.1); CREATININE FOR GFR 1.94 MG/DL (0.70-1.30); GLOMERULAR FILTRATION RATE 37.9 (>56)
[2019-09-06 14:02] LABS: HEMOGLOBIN A1c 6.9 %
== END ==
LOC: M SFHCADAM 09:17
PROVIDERS: ATTEND Family Medicine
DX: E11.22 Type 2 diabetes mellitus with diabetic chronic kidney disease (principal)

== ENCOUNTER → 2020-03-23 | Outpatient (REF) | payer BC, MEDICARE ==
[2020-03-23 14:03] LABS: BASO # 0.1 10^3/uL (0.0-0.2); BASO % 0.7 % (0.0-1.0); EOS # 0.7 10^3/uL (0.0-0.5); EOS % 9.7 % (0.0-3.0); HEMATOCRIT 43.3 % (42.0-52.0); HEMOGLOBIN 14.4 g/dl (13.5-17.5); LYMPH # 1.5 10^3/uL (1.5-5.0); LYMPH % 21.4 % (24.0-44.0); MEAN CORPUSCULAR HEMOGLOBIN 30.1 pg (27.0-33.0); MEAN CORPUSCULAR HGB CONC 33.3 g/dl (32.0-36.5); MEAN CORPUSCULAR VOLUME 90.4 fl (80.0-96.0); MONO # 0.6 10^3/uL (0.0-0.8); MONO % 8.6 % (0.0-5.0); NEUTROPHILS # 4.1 10^3/uL (1.5-8.5); NEUTROPHILS % 59.5 % (36.0-66.0); PLATELET COUNT, AUTOMATED 205 10^3/uL (150-450); RED BLOOD COUNT 4.79 10^6/uL (4.30-6.10); WHITE BLOOD COUNT 6.9 10^3/uL (4.0-10.0)
[2020-03-23 14:34] LABS: ALT/SGPT 42 U/L (12-78); BILIRUBIN,TOTAL 0.9 MG/DL (0.2-1.0); BLOOD UREA NITROGEN 43 MG/DL (7-18); CALCIUM LEVEL 9.6 MG/DL (8.5-10.1); CARBON DIOXIDE LEVEL 28 MEQ/L (21-32); CHLORIDE LEVEL 108 MEQ/L (98-107); CHOLESTEROL LEVEL 180 MG/DL (<200); CHOLESTEROL RISK RATIO 4.736 (<5); CREATININE FOR GFR 1.91 MG/DL (0.70-1.30); FERRITIN 86 NG/ML (26-388); FOLATE > 24.0 NG/ML; GLOMERULAR FILTRATION RATE 38.6 (>56); GLUCOSE, FASTING 96 MG/DL (70-100); HDL CHOLESTEROL 38 MG/DL (>40); IRON (FE) 88 UG/DL (65-175); LDL CHOLESTEROL 107 MG/DL (<100); NON-HDL-C 142 MG/DL; PERCENT SATURATION 30.4 % (19.7-50.0); POTASSIUM SERUM 4.8 MEQ/L (3.5-5.1); SODIUM LEVEL 140 MEQ/L (136-145); TOTAL 25(OH) VITAMIN D 17.3 NG/ML (30.0-100.0); TOTAL IRON BINDING CAPACITY 289 UG/DL (250-450); TOTAL PROTEIN 7.7 GM/DL (6.4-8.2); TRIGLYCERIDES LEVEL 173 MG/DL (<150); VITAMIN B12 LEVEL 1025 PG/ML
== END ==
LOC: M SFHCADAM 09:41
PROVIDERS: ATTEND Physician Assistant Medical
DX: E11.22 Type 2 diabetes mellitus with diabetic chronic kidney disease (principal); E78.2 Mixed hyperlipidemia; E55.9 Vitamin D deficiency, unspecified; D63.1 Anemia in chronic kidney disease; E53.9 Vitamin B deficiency, unspecified; N18.9 Chronic kidney disease, unspecified

== ENCOUNTER → 2020-09-21 | Outpatient (REF) | payer MEDICARE ==
[2020-09-21 13:32] LABS: MEAN CORPUSCULAR HEMOGLOBIN 30.8 pg (27.0-33.0); MEAN CORPUSCULAR HGB CONC 33.3 g/dl (32.0-36.5); MEAN CORPUSCULAR VOLUME 92.5 fl (80.0-96.0); PLATELET COUNT, AUTOMATED 212 10^3/uL (150-450); RED BLOOD COUNT 4.54 10^6/uL (4.30-6.10); WHITE BLOOD COUNT 6.5 10^3/uL (4.0-10.0)
[2020-09-21 13:51] LABS: HEMOGLOBIN A1c 7.5 %
[2020-09-21 14:03] LABS: CALCIUM LEVEL 9.3 MG/DL (8.8-10.2); CREATININE FOR GFR 1.84 MG/DL (0.70-1.30); GLOMERULAR FILTRATION RATE 40.1 (>49); POTASSIUM SERUM 4.7 MEQ/L (3.5-5.1)
[2020-09-21 14:08] LABS: TOTAL 25(OH) VITAMIN D 38.6 NG/ML (30.0-100.0)
== END ==
LOC: M SFHCADAM 09:54
PROVIDERS: ATTEND Family Medicine
DX: N18.30 Chronic kidney disease, stage 3 unspecified (principal); E11.22 Type 2 diabetes mellitus with diabetic chronic kidney disease; E55.9 Vitamin D deficiency, unspecified

== ENCOUNTER → 2021-05-13 | Outpatient (REF) | payer MEDICARE ==
[~2021-05-13] MED LIST changes: +LOSA50TA28 PO; -LOSA50TA88 PO
[2021-05-13 13:29] LABS: CREATININE FOR GFR 1.85 MG/DL (0.70-1.30); GLOMERULAR FILTRATION RATE 39.9 (>49); POTASSIUM SERUM 4.4 MEQ/L (3.5-5.1)
[2021-05-13 13:36] LABS: HEMOGLOBIN A1c 7.8 %
== END ==
LOC: M SFHCADAM 10:52
PROVIDERS: ATTEND Family Medicine
DX: E11.22 Type 2 diabetes mellitus with diabetic chronic kidney disease (principal)

== ENCOUNTER → 2021-05-17 | Outpatient (CLI) | payer MEDICARE ==
[~2021-05-17] MED LIST changes: +ECOT81TA5 PO
== END ==
LOC: M LABSMTC 10:32
PROVIDERS: ATTEND Anesthesiology
DX: Z01.812 Encounter for preprocedural laboratory examination (principal); Z20.822 Contact with and (suspected) exposure to COVID-19

== ENCOUNTER 2021-05-21 06:34 | Day surgery (SDC) | payer MEDICARE ==
[~2021-05-21] VITALS: Ht 177.8 cm; Wt 98.8 kg
[~2021-05-21 06:34] MED LIST changes: +NS 1,000 ML IV ONE
[2021-05-21] MEDS ORDERED: LIDOCAINE 2% 100MG/5ML SDV (FOR ANES.) As Ordered ONE (07:13)
[2021-05-21] MEDS ORDERED: propofoL 200 MG/20 ML VIAL As Ordered ONE (07:13)
[2021-05-21 08:19] VITALS: BP 118/69
== END 2021-05-21 08:30 | disposition home or self-care (01) ==
LOC: M OPP 06:34
PROVIDERS: ATTEND Internal Medicine Gastroenterology
DX: Z12.11 Encounter for screening for malignant neoplasm of colon (principal); Z86.010 Personal history of colon polyps; D12.3 Benign neoplasm of transverse colon; K57.30 Diverticulosis of large intestine without perforation or abscess without bleeding; K64.8 Other hemorrhoids; Z79.899 Other long term (current) drug therapy; Z88.8 Allergy status to other drugs, medicaments and biological substances

== ENCOUNTER → 2021-07-28 | Outpatient (REF) | payer MEDICARE ==
[~2021-07-28] MED LIST changes: -NS 1,000 ML IV ONE
[2021-07-28 13:29] LABS: HEMOGLOBIN A1c 7.4 %
[2021-07-28 14:02] LABS: ALBUMIN 3.8 GM/DL (3.2-5.2); BILIRUBIN,TOTAL 0.8 MG/DL (0.2-1.0); CHOLESTEROL RISK RATIO 3.972 (<5); CREATININE FOR GFR 1.96 MG/DL (0.70-1.30); GLOMERULAR FILTRATION RATE 37.3 (>49); POTASSIUM SERUM 4.2 MEQ/L (3.5-5.1); TOTAL 25(OH) VITAMIN D 30.3 NG/ML (30.0-100.0); TOTAL PROTEIN 7.3 GM/DL (6.4-8.2)
== END ==
LOC: M SFHCADAM 09:12
PROVIDERS: ATTEND Family Medicine
DX: E11.22 Type 2 diabetes mellitus with diabetic chronic kidney disease (principal); E78.2 Mixed hyperlipidemia; N18.32 Chronic kidney disease, stage 3b; E55.9 Vitamin D deficiency, unspecified

== ENCOUNTER → 2021-08-05 | Outpatient (CLI) | payer MEDICARE | LOC: M PLAIMG 14:58 | PROVIDERS: ATTEND Orthopaedic Surgery | DX: M51.36 Other intervertebral disc degeneration, lumbar region (principal); M51.26 Other intervertebral disc displacement, lumbar region; M48.061 Spinal stenosis, lumbar region without neurogenic claudication; M51.46 Schmorl's nodes, lumbar region ==

== ENCOUNTER → 2021-08-13 | Outpatient (CLI) | payer MEDICARE ==
[~2021-08-13] MED LIST changes: +GASTROGRAFIN SOLUTION 30ML (Q9963) ONE
== END ==
LOC: M PLAIMG 08:40
PROVIDERS: ATTEND Internal Medicine Nephrology
DX: N18.32 Chronic kidney disease, stage 3b (principal); N28.1 Cyst of kidney, acquired
CPT/HCPCS: 74176; Q9963

== ENCOUNTER → 2021-12-15 | Outpatient (REF) | payer MEDICARE ==
[~2021-12-15] MED LIST changes: -GASTROGRAFIN SOLUTION 30ML (Q9963) ONE
== END ==
LOC: M LAB REF 15:19
PROVIDERS: ATTEND Podiatrist
DX: L03.031 Cellulitis of right toe (principal); M79.671 Pain in right foot

== ENCOUNTER → 2021-12-27 | Outpatient (CLI) | payer MEDICARE | LOC: M PLAIMG 06:40 | PROVIDERS: ATTEND Physician Assistant | DX: M51.36 Other intervertebral disc degeneration, lumbar region (principal); M47.9 Spondylosis, unspecified ==

== ENCOUNTER → 2022-02-28 | Outpatient (REF) | payer MEDICARE ==
[2022-02-28 14:30] LABS: CALCIUM LEVEL 9.7 MG/DL (8.3-10.6); CREATININE FOR GFR 1.59 MG/DL (0.70-1.30); GLOMERULAR FILTRATION RATE 47.4 (>49); POTASSIUM SERUM 5.2 MMOL/L (3.5-5.1)
== END ==
LOC: M SFHCADAM 10:23
PROVIDERS: ATTEND Family Medicine
DX: E11.22 Type 2 diabetes mellitus with diabetic chronic kidney disease (principal)

== ENCOUNTER → 2022-06-10 | Outpatient (REF) | payer MEDICARE ==
[2022-06-10 13:02] LABS: HEMATOCRIT 42.9 % (42.0-52.0); HEMOGLOBIN 14.3 g/dl (13.5-17.5); MEAN CORPUSCULAR HEMOGLOBIN 30.6 pg (27.0-33.0); MEAN CORPUSCULAR HGB CONC 33.3 g/dl (32.0-36.5); MEAN CORPUSCULAR VOLUME 91.9 fl (80.0-96.0); PLATELET COUNT, AUTOMATED 196 10^3/uL (150-450); RED BLOOD COUNT 4.67 10^6/uL (4.30-6.10); WHITE BLOOD COUNT 6.6 10^3/uL (4.0-10.0)
[2022-06-10 13:20] LABS: HEMOGLOBIN A1c 7.3 % (4.0-6.0)
[2022-06-10 13:37] LABS: ALBUMIN 4.1 G/DL (3.2-5.2); CALCIUM LEVEL 9.5 MG/DL (8.3-10.6); CHOLESTEROL RISK RATIO 4.38 (<5); CREATININE FOR GFR 1.69 MG/DL (0.70-1.30); GLOMERULAR FILTRATION RATE 44.1 (>49); HDL CHOLESTEROL 34.9 MG/DL (>40); LDL CHOLESTEROL 99.9 MG/DL (<100); NON-HDL-C 118.1 MG/DL; POTASSIUM SERUM 4.5 MMOL/L (3.5-5.1); TOTAL PROTEIN 7.6 G/DL (5.7-8.2)
[2022-06-10 13:38] LABS: TOTAL 25(OH) VITAMIN D 30.2 NG/ML (20.0-100.0)
== END ==
LOC: M SFHCADAM 09:28
PROVIDERS: ATTEND Family Medicine
DX: E11.22 Type 2 diabetes mellitus with diabetic chronic kidney disease (principal); N18.32 Chronic kidney disease, stage 3b; D63.1 Anemia in chronic kidney disease; E78.2 Mixed hyperlipidemia; E55.9 Vitamin D deficiency, unspecified

== ENCOUNTER → 2023-01-23 | Outpatient (REF) | payer MEDICARE ==
[2023-01-23 15:10] LABS: CALCIUM LEVEL 9.6 MG/DL (8.3-10.6); CREATININE FOR GFR 1.74 MG/DL (0.70-1.30); GLOMERULAR FILTRATION RATE 42.5 (>49); POTASSIUM SERUM 4.1 MMOL/L (3.5-5.1)
[2023-01-23 15:11] LABS: HEMOGLOBIN A1c 8.4 % (4.0-6.0)
[2023-01-23 15:26] LABS: MAU/CREAT RATIO 35.5 MCG/MG (0.0-30.0)
== END ==
LOC: M SFHCADAM 09:08
PROVIDERS: ATTEND Family Medicine
DX: E11.22 Type 2 diabetes mellitus with diabetic chronic kidney disease (principal)

== ENCOUNTER 2023-03-08 10:42 | Inpatient (IN) | payer MEDICARE ==
[~2023-03-08] VITALS: Ht 172.7 cm; Wt 98.4 kg
[2023-03-08 11:38] LABS: BASO % 0.4 % (0.0-1.0); EOS # 0.2 10^3/uL (0.0-0.5); EOS % 1.8 % (0.0-3.0); HEMATOCRIT 44.4 % (42.0-52.0); HEMOGLOBIN 15.3 g/dl (13.5-17.5); LYMPH # 0.8 10^3/uL (1.5-5.0); LYMPH % 7.3 % (24.0-44.0); MEAN CORPUSCULAR HEMOGLOBIN 31.4 pg (27.0-33.0); MEAN CORPUSCULAR HGB CONC 34.5 g/dl (32.0-36.5); MONO # 0.8 10^3/uL (0.0-0.8); MONO % 7.2 % (2.0-8.0); NEUTROPHILS # 8.8 10^3/uL (1.5-8.5); PLATELET COUNT, AUTOMATED 158 10^3/uL (150-450); RED BLOOD COUNT 4.88 10^6/uL (4.30-6.10); WHITE BLOOD COUNT 10.6 10^3/uL (4.0-10.0)
[2023-03-08] MEDS ORDERED: NS 1,000 ML IV ONE (12:00)
[2023-03-08] MEDS ORDERED: BOOSTRIX VACCINE (TETANUS/DIPHTH/ACEL. PERTUSSIS) 0.5ML SYR IM.IMMUN ONE (12:00)
[2023-03-08 12:04] LABS: CALCIUM LEVEL 9.4 MG/DL (8.3-10.6); CREATININE FOR GFR 1.55 MG/DL (0.70-1.30); GLOMERULAR FILTRATION RATE 48.6 (>49); MAGNESIUM LEVEL 1.6 MG/DL (1.8-2.4); MB/CK RELATIVE INDEX 1.77 (< OR =4); POTASSIUM SERUM 4.6 MMOL/L (3.5-5.1)
[2023-03-08 12:05] LABS: THYROID STIMULATING HORMONE 3.954 uIU/ML (0.55-4.78)
[2023-03-08 12:07] LABS: FREE T4 1.21 NG/DL (0.89-1.76)
[2023-03-08] MEDS ORDERED: MAG SULF 1GM/100ML (MAG RUN) 1 GM in IV 1 EA IV ONE (12:20)
[2023-03-08] MEDS ORDERED: NEOSPORIN OINT 0.9 GM PKT TOP ONE (12:25)
[2023-03-08 12:51] LABS: RSV AMPLIFICATION NEGATIVE (NEGATIVE)
[2023-03-08 13:12] LABS: CK-MB VALUE MASS 2.6 NG/ML (<3.6)
[2023-03-08 13:15] LABS: MB/CK RELATIVE INDEX 1.53 (< OR =4)
[2023-03-08] MEDS ORDERED: MED REC IN PROGRESS XX SCH (13:40)
[2023-03-08] MEDS ORDERED: NORV5TAB PO (14:10)
[2023-03-08] MEDS ORDERED: HOME MED LIST COMPLETE! XX SCH (14:15)
[2023-03-08 14:54] LABS: CK-MB VALUE MASS 3.3 NG/ML (<3.6)
[2023-03-08 15:00] LABS: MB/CK RELATIVE INDEX 1.82 (< OR =4)
[2023-03-08] MEDS ORDERED: ASPIRIN 81MG CHEW TABLET PO ONE (15:00)
[2023-03-08] MEDS ORDERED: ISOVUE-370 76% 100ML VIAL As Ordered ONE (15:09)
[2023-03-08] MEDS ORDERED: HEPARIN SOD (PORCINE) 5000UNITS/ML 1ML VIAL/SYRINGE IV PRN (17:30)
[2023-03-08] MEDS ORDERED: HEPARIN SOD (PORCINE) 5000UNITS/ML 1ML VIAL/SYRINGE IV ONE (17:30)
[2023-03-08 17:48] LABS: INR 1.09; PARTIAL THROMBOPLASTIN TIME 25.5 SECONDS (24.8-34.2); PROTHROMBIN TIME 13.8 SECONDS (12.5-14.5)
[2023-03-08] MEDS: HEPARIN DRIP 25,000 UNITS in IV 1 EA IV SCH (17:52)
[2023-03-09] MEDS: HEPARIN DRIP 25,000 UNITS in IV 1 EA IV SCH (02:48)
[2023-03-09 11:19] LABS: DRVV SCREEN 44.6 SECONDS; PTT LUPUS TYPE ANTICOAG SCREEN 1.12 (0-1.20)
[2023-03-09 13:45] LABS: BASO % 0.4 % (0.0-1.0); EOS # 0.2 10^3/uL (0.0-0.5); HEMATOCRIT 44.9 % (42.0-52.0); LYMPH # 1.3 10^3/uL (1.5-5.0); LYMPH % 16.1 % (24.0-44.0); MEAN CORPUSCULAR HEMOGLOBIN 30.4 pg (27.0-33.0); MEAN CORPUSCULAR HGB CONC 33.4 g/dl (32.0-36.5); MEAN CORPUSCULAR VOLUME 90.9 fl (80.0-96.0); MONO # 0.8 10^3/uL (0.0-0.8); MONO % 9.5 % (2.0-8.0); NEUTROPHILS # 5.6 10^3/uL (1.5-8.5); NEUTROPHILS % 70.7 % (36.0-66.0); PLATELET COUNT, AUTOMATED 170 10^3/uL (150-450); RED BLOOD COUNT 4.94 10^6/uL (4.30-6.10)
[2023-03-09] MEDS ORDERED: DEXTROSE 50% 50ML SYRINGE IV PRN (14:00)
[2023-03-09] MEDS ORDERED: GLUCAGON INJ 1MG VIAL SC PRN (14:00)
[2023-03-09] MEDS ORDERED: GLUCOSE 4GM CHEW TABLET PO PRN (14:00)
[2023-03-09 14:14] LABS: CALCIUM LEVEL 9.5 MG/DL (8.3-10.6); CREATININE FOR GFR 1.52 MG/DL (0.70-1.30); GLOMERULAR FILTRATION RATE 49.7 (>49); MAGNESIUM LEVEL 2.1 MG/DL (1.8-2.4); POTASSIUM SERUM 4.8 MMOL/L (3.5-5.1)
[2023-03-09 16:00] VITALS: BP 138/67; TEMP 98.5; O2SAT 95
[2023-03-09] MEDS ORDERED: HEPARIN DRIP 25,000 UNITS in IV 1 EA IV SCH (16:50)
[2023-03-09] MEDS ORDERED: HEPARIN SOD (PORCINE) 5000UNITS/ML 1ML VIAL/SYRINGE IV PRN (16:50)
[2023-03-09] MEDS: INSULIN LISPRO (NovoLOG) PER UNIT SC SCH (18:00)
[2023-03-09 19:30] VITALS: BP 142/68; TEMP 98.3; O2SAT 95
[2023-03-09] MEDS ORDERED: INSULIN LISPRO (NovoLOG) PER UNIT SC SCH (21:00)
[2023-03-09] MEDS ORDERED: ATORVASTATIN 20 MG TAB PO SCH (21:00)
[2023-03-09 23:47] VITALS: BP 138/74; TEMP 98.3; O2SAT 96
[2023-03-10 03:54] VITALS: BP 125/79; TEMP 98; O2SAT 94
[2023-03-10 06:28] LABS: BASO # 0.1 10^3/uL (0.0-0.2); BASO % 0.6 % (0.0-1.0); EOS # 0.5 10^3/uL (0.0-0.5); EOS % 5.8 % (0.0-3.0); HEMATOCRIT 41.2 % (42.0-52.0); HEMOGLOBIN 13.6 g/dl (13.5-17.5); LYMPH # 2.1 10^3/uL (1.5-5.0); LYMPH % 23.9 % (24.0-44.0); MEAN CORPUSCULAR HEMOGLOBIN 30.3 pg (27.0-33.0); MEAN CORPUSCULAR VOLUME 91.8 fl (80.0-96.0); MONO # 0.9 10^3/uL (0.0-0.8); MONO % 10.8 % (2.0-8.0); NEUTROPHILS # 5.1 10^3/uL (1.5-8.5); NEUTROPHILS % 58.7 % (36.0-66.0); PLATELET COUNT, AUTOMATED 150 10^3/uL (150-450); RED BLOOD COUNT 4.49 10^6/uL (4.30-6.10); WHITE BLOOD COUNT 8.7 10^3/uL (4.0-10.0)
[2023-03-10 07:29] LABS: CALCIUM LEVEL 8.8 MG/DL (8.3-10.6); CREATININE FOR GFR 1.67 MG/DL (0.70-1.30); GLOMERULAR FILTRATION RATE 44.6 (>49); MAGNESIUM LEVEL 1.9 MG/DL (1.8-2.4); POTASSIUM SERUM 4.1 MMOL/L (3.5-5.1)
[2023-03-10] MEDS ORDERED: ELIQ5TAB4 PO (07:41)
[2023-03-10] MEDS: INSULIN LISPRO (NovoLOG) PER UNIT SC SCH ×2 (07:53→12:00)
[2023-03-10 07:58] VITALS: BP 157/78; TEMP 97.4; O2SAT 94
[2023-03-10] MEDS ORDERED: ELIQ5TAB PO ×2 (08:53→09:54)
[2023-03-10] MEDS ORDERED: APIXABAN 5 MG TAB (ELIQUIS) PO SCH (10:00)
== END 2023-03-10 13:03 | disposition home or self-care (01) | DRG 176 ==
LOC: M ED 10:42 → EDBD 10:42 → M ED INP 17:36 → ENRESERV 03-09 15:23 → M PCU 03-09 16:03
PROVIDERS: ADMIT Internal Medicine Pulmonary Disease; ATTEND Internal Medicine
DX: I26.99 Other pulmonary embolism without acute cor pulmonale (principal); I82.401 Acute embolism and thrombosis of unspecified deep veins of right lower extremity; Q43.3 Congenital malformations of intestinal fixation; R55 Syncope and collapse; I12.9 Hypertensive chronic kidney disease with stage 1 through stage 4 chronic kidney disease, or unspecified chronic kidney disease; N18.30 Chronic kidney disease, stage 3 unspecified; E11.40 Type 2 diabetes mellitus with diabetic neuropathy, unspecified; I25.10 Atherosclerotic heart disease of native coronary artery without angina pectoris; E11.22 Type 2 diabetes mellitus with diabetic chronic kidney disease; Z79.899 Other long term (current) drug therapy; Z88.2 Allergy status to sulfonamides; Z88.8 Allergy status to other drugs, medicaments and biological substances; Z89.422 Acquired absence of other left toe(s)

== ENCOUNTER → 2023-05-02 | Outpatient (REF) | payer MEDICARE ==
[~2023-05-02] MED LIST changes: +ELIQ5TAB PO; +ELIQ5TAB4 PO; +NORV5TAB PO
[2023-05-02 13:02] LABS: HEMATOCRIT 43.9 % (42.0-52.0); HEMOGLOBIN 14.7 g/dl (13.5-17.5); MEAN CORPUSCULAR HEMOGLOBIN 30.6 pg (27.0-33.0); MEAN CORPUSCULAR HGB CONC 33.5 g/dl (32.0-36.5); MEAN CORPUSCULAR VOLUME 91.3 fl (80.0-96.0); PLATELET COUNT, AUTOMATED 182 10^3/uL (150-450); RED BLOOD COUNT 4.81 10^6/uL (4.30-6.10); WHITE BLOOD COUNT 5.9 10^3/uL (4.0-10.0)
[2023-05-02 13:33] LABS: ALBUMIN 3.8 G/DL (3.2-5.2); ALKALINE PHOSPHATASE 107 U/L (46-116); ALT/SGPT 37 U/L (7.0-40); AST/SGOT 23 U/L (<34); BLOOD UREA NITROGEN 35 MG/DL (9-23); CALCIUM LEVEL 8.5 MG/DL (8.3-10.6); CARBON DIOXIDE LEVEL 28 MMOL/L (20-31); CHLORIDE LEVEL 106 MMOL/L (98-107); CHOLESTEROL LEVEL 152 MG/DL (<200); CHOLESTEROL RISK RATIO 4.11 (<5); CREATININE FOR GFR 1.65 MG/DL (0.70-1.30); GLOMERULAR FILTRATION RATE 45.2 (>49); GLUCOSE, FASTING 100 MG/DL (74-106); HDL CHOLESTEROL 36.9 MG/DL (>40); LDL CHOLESTEROL 80.7 MG/DL (<100); NON-HDL-C 115.1 MG/DL; POTASSIUM SERUM 3.9 MMOL/L (3.5-5.1); SODIUM LEVEL 139 MMOL/L (136-145); TOTAL PROTEIN 7.1 G/DL (5.7-8.2); TRIGLYCERIDES LEVEL 172 MG/DL (<150)
[2023-05-02 13:34] LABS: FOLATE > 24.00 NG/ML (>5.4); VITAMIN B12 LEVEL 732 PG/ML (211-911)
[2023-05-02 13:36] LABS: HEMOGLOBIN A1c 7.9 % (4.0-6.0)
== END ==
LOC: M SFHCADAM 09:06
PROVIDERS: ATTEND Family Medicine
DX: E11.22 Type 2 diabetes mellitus with diabetic chronic kidney disease (principal); N18.32 Chronic kidney disease, stage 3b; E53.9 Vitamin B deficiency, unspecified; E78.2 Mixed hyperlipidemia

== ENCOUNTER → 2023-05-08 | Outpatient (CLI) | payer MEDICARE | LOC: M RADPRO 10:30 | PROVIDERS: ATTEND Internal Medicine Pulmonary Disease | DX: R06.02 Shortness of breath (principal) ==

== ENCOUNTER → 2023-07-12 | Outpatient (REF) | payer MEDICARE ==
[~2023-07-12] MED LIST changes: -GLIM1TAB4; -GLIM1TAB4 PO; +GLIM1TAB84; +GLIM1TAB84 PO
== END ==
LOC: M LAB REF 16:48
PROVIDERS: ATTEND Podiatrist
DX: L03.126 Acute lymphangitis of left lower limb (principal)

== ENCOUNTER → 2023-08-21 | Outpatient (REF) | payer MEDICARE ==
[2023-08-21 12:42] LABS: HEMATOCRIT 40.9 % (42.0-52.0); HEMOGLOBIN 13.5 g/dl (13.5-17.5); MEAN CORPUSCULAR HEMOGLOBIN 30.4 pg (27.0-33.0); MEAN CORPUSCULAR VOLUME 92.1 fl (80.0-96.0); PLATELET COUNT, AUTOMATED 221 10^3/uL (150-450); RED BLOOD COUNT 4.44 10^6/uL (4.30-6.10); WHITE BLOOD COUNT 6.4 10^3/uL (4.0-10.0)
[2023-08-21 12:46] LABS: ALBUMIN 3.7 G/DL (3.2-5.2); BILIRUBIN,TOTAL 0.8 MG/DL (0.3-1.2); CALCIUM LEVEL 9.4 MG/DL (8.3-10.6); CREATININE FOR GFR 1.58 MG/DL (0.70-1.30); GLOMERULAR FILTRATION RATE 47.5 (>49); POTASSIUM SERUM 4.1 MMOL/L (3.5-5.1); TOTAL PROTEIN 7.2 G/DL (5.7-8.2)
[2023-08-21 13:52] LABS: HEMOGLOBIN A1c 7.1 % (4.0-6.0)
[2023-08-21 15:47] LABS: CREATININE, URINE 69.6 MG/DL; MAU/CREAT RATIO 25.8 MCG/MG (0.0-30.0)
== END ==
LOC: M SFHCADAM 08:29
PROVIDERS: ATTEND Family Medicine
DX: E11.22 Type 2 diabetes mellitus with diabetic chronic kidney disease (principal); N18.32 Chronic kidney disease, stage 3b; I26.99 Other pulmonary embolism without acute cor pulmonale; I82.411 Acute embolism and thrombosis of right femoral vein

== ENCOUNTER → 2023-09-06 | Outpatient (REF) | payer MEDICARE | LOC: M SFHCADAM 09:46 | PROVIDERS: ATTEND Family Medicine | DX: E11.22 Type 2 diabetes mellitus with diabetic chronic kidney disease (principal); Z79.899 Other long term (current) drug therapy ==

== ENCOUNTER → 2023-10-31 | Outpatient (CLI) | payer MEDICARE | LOC: M WUC 09:48 | PROVIDERS: ATTEND Surgery | DX: L97.522 Non-pressure chronic ulcer of other part of left foot with fat layer exposed (principal) ==

== ENCOUNTER → 2023-12-27 | Outpatient (CLI) | payer MEDICARE ==
[2023-12-27 13:07] LABS: BASO # 0.1 10^3/uL (0.0-0.2); BASO % 0.7 % (0.0-1.0); EOS # 0.4 10^3/uL (0.0-0.5); EOS % 6.3 % (0.0-3.0); HEMATOCRIT 40.3 % (42.0-52.0); HEMOGLOBIN 13.6 g/dl (13.5-17.5); LYMPH # 1.5 10^3/uL (1.5-5.0); LYMPH % 22.5 % (24.0-44.0); MEAN CORPUSCULAR HGB CONC 33.7 g/dl (32.0-36.5); MEAN CORPUSCULAR VOLUME 91.8 fl (80.0-96.0); MONO # 0.6 10^3/uL (0.0-0.8); MONO % 9.4 % (2.0-8.0); NEUTROPHILS # 4.1 10^3/uL (1.5-8.5); PLATELET COUNT, AUTOMATED 219 10^3/uL (150-450); RED BLOOD COUNT 4.39 10^6/uL (4.30-6.10); WHITE BLOOD COUNT 6.8 10^3/uL (4.0-10.0)
[2023-12-27 13:30] LABS: ALBUMIN 3.8 G/DL (3.2-5.2); BILIRUBIN,TOTAL 1.2 MG/DL (0.3-1.2); CALCIUM LEVEL 10.1 MG/DL (8.3-10.6); CREATININE FOR GFR 1.84 MG/DL (0.70-1.30); GLOMERULAR FILTRATION RATE 39.8 (>49); POTASSIUM SERUM 4.5 MMOL/L (3.5-5.1); TOTAL PROTEIN 7.8 G/DL (5.7-8.2)
== END ==
LOC: M WUC 10:10
PROVIDERS: ATTEND Podiatrist
DX: M79.672 Pain in left foot (principal); E11.621 Type 2 diabetes mellitus with foot ulcer; M70.42 Prepatellar bursitis, left knee; J98.11 Atelectasis

== ENCOUNTER 2024-01-12 09:59 | Day surgery (SDC) | payer MEDICARE ==
[~2024-01-12] VITALS: Ht 175.3 cm; Wt 99.2 kg
[~2024-01-12 09:59] MED LIST changes: +GLIM2TAB29 PO
[2024-01-12] MEDS ORDERED: GLUCAGON INJ 1MG VIAL SC PRN (10:45)
[2024-01-12] MEDS ORDERED: DEXTROSE 50% 50ML SYRINGE IV PRN (10:45)
[2024-01-12] MEDS ORDERED: GLUCOSE 4 GM CHEW PO PRN (10:45)
[2024-01-12] MEDS: INSULIN LISPRO (NovoLOG) PER UNIT SC PRN (11:00)
[2024-01-12] MEDS ORDERED: KETOROLAC 60MG 2ML VIAL As Ordered ONE (11:52)
[2024-01-12] MEDS ORDERED: ONDANSETRON 4MG 2ML VIAL As Ordered ONE (11:52)
[2024-01-12] MEDS ORDERED: propofoL 200 MG/20 ML VIAL As Ordered ONE (11:52)
[2024-01-12] MEDS ORDERED: dexmedeTOMIDine (4MCG/ML)200MCG/50ML BTL (PRECEDEX) As Ordered ONE (11:56)
[2024-01-12] MEDS ORDERED: ACETAMINOPHEN 1000MG/100ML IV BAG As Ordered ONE (11:57)
[2024-01-12] MEDS ORDERED: MIDAZOLAM INJ 2MG/2ML VIAL As Ordered ONE (12:42)
[2024-01-12] MEDS: ceFAZolin SOD 2 GM in IV 1 EA IV ONE (13:23)
[2024-01-12] MEDS: LIDOCAINE 2% MDV 20ML VIAL As Ordered ONE (13:43)
[2024-01-12] MEDS: GENTAMICIN SULF 80MG/2ML VIAL As Ordered ONE (13:54)
[2024-01-12] MEDS ORDERED: ePHEDrine SULFATE 25 MG/5 ML(5MG/ML) SYRINGE As Ordered ONE (14:06)
[2024-01-12 15:42] VITALS: BP 112/70; TEMP 97.5; O2SAT 96
== END 2024-01-12 15:56 | disposition home or self-care (01) ==
LOC: M SDC 09:59
PROVIDERS: ATTEND Podiatrist
DX: M20.42 Other hammer toe(s) (acquired), left foot (principal); L97.529 Non-pressure chronic ulcer of other part of left foot with unspecified severity; M20.5X2 Other deformities of toe(s) (acquired), left foot; Z79.01 Long term (current) use of anticoagulants; Z79.84 Long term (current) use of oral hypoglycemic drugs; Z79.899 Other long term (current) drug therapy; Z88.8 Allergy status to other drugs, medicaments and biological substances; I10 Essential (primary) hypertension; E11.9 Type 2 diabetes mellitus without complications; E78.5 Hyperlipidemia, unspecified; Z86.718 Personal history of other venous thrombosis and embolism; N18.9 Chronic kidney disease, unspecified
CPT/HCPCS: 28124; 28270; 28285; 28755; 73630; 88300; J0131; J0665; J0690; J1100; J1580; J1815; J2250; J2405

== ENCOUNTER → 2024-02-29 | Outpatient (REF) | payer MEDICARE ==
[2024-02-29 13:08] LABS: CALCIUM LEVEL 9.7 MG/DL (8.3-10.6); CREATININE FOR GFR 1.71 MG/DL (0.70-1.30); GLOMERULAR FILTRATION RATE 43.3 (>49); POTASSIUM SERUM 4.3 MMOL/L (3.5-5.1)
== END ==
LOC: M SFHCADAM 07:49
PROVIDERS: ATTEND Family Medicine
DX: E11.22 Type 2 diabetes mellitus with diabetic chronic kidney disease (principal); N18.9 Chronic kidney disease, unspecified

== ENCOUNTER → 2024-11-12 | Outpatient (REF) | payer MEDICARE ==
[~2024-11-12] MED LIST changes: +VANC125C13 PO; -VANC125C3 PO
[2024-11-12 14:58] LABS: CALCIUM LEVEL 9.6 MG/DL (8.3-10.6); CARBON DIOXIDE LEVEL 28.0 MMOL/L (20-31); CHLORIDE LEVEL 102.0 MMOL/L (98-107); CREATININE FOR GFR 1.99 MG/DL (0.70-1.30); GLOMERULAR FILTRATION RATE 36.8 (>49); POTASSIUM SERUM 4.0 MMOL/L (3.5-5.1); SODIUM LEVEL 140.0 MMOL/L (136-145)
[2024-11-12 19:16] LABS: ESTIMATED AVERAGE GLUCOSE 169.0 MG/DL (60-110)
== END ==
LOC: M SFHCADAM 10:13
PROVIDERS: ATTEND Family Medicine
DX: E11.22 Type 2 diabetes mellitus with diabetic chronic kidney disease (principal)